=== PATIENT | female | born 1980 | race African-American/Black ===

== ENCOUNTER 2017-02-04 09:35 | Emergency (ER) | payer OTHER ==
[2017-02-04 09:39] VITALS: BP 138/92; PULSE 92; TEMP 98; BMI 22.4
--- NOTE | 2017-02-04 10:11 | PDOC ---
History of Present Illness - General History Source: Patient Exam Limitations: No Limitations - History of Present Illness Initial Comments: 02/04/17 11:12 36 year old female, with significant past medical history of Lupus, Kidney Cancer (s/p right partial nephrectomy), who presents to the emergency room complaining of 1 episode of dizziness like she was moving while standing in her room this morning prior to arrival to the ER. She notes that she felt nauseous and sweaty when the dizziness occurred but has since resolved. She states that the dizziness is exacerbated when bending over. She is also complaining of a few weeks of LUQ abdominal pain described as cramping. She notes that she had 1 loose bowel movement recently with mucous. Denies bloody or tarry stool. She notes that her bowel movements have been very painful recently. No associated vomiting, urinary sypmtoms, fever/chills. Denies headache, changes in vision. 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 Hirsch 02/04/17 11:18 <Richelle Mena - Last Filed: 02/04/17 11:19> <Toan Fletcher - Last Filed: 02/04/17 12:06> - General Chief Complaint: Lightheaded Stated Complaint: SOB Time Seen by Provider: 02/04/17 10:00 Past History <Richelle Mena - Last Filed: 02/04/17 11:19> - Past Medical History Anemia: No Asthma: No Cancer: Yes (KIDNEY R) Cardiac Disorders: No CVA: No COPD: No CHF: No Dementia: No Diabetes: No GI Disorders: No Disorders: No HTN: No Hypercholesterolemia: No Liver Disease: No Seizures: No Thyroid Disease: No Other medical history: LUPUS - Surgical History Abdominal Surgery: (FALLOPIAN TUBES REMOVED) Appendectomy: No Cardiac Surgery: No Cholecystectomy: No Lung Surgery: No Neurologic Surgery: No Orthopedic Surgery: No - Suicide/Smoking/Psychosocial Hx Smoking History: Never smoked Have you smoked in the past 12 months: Yes Number of Cigarettes Smoked Daily: 2 If you are a former smoker, when did you quit?: 3 MO AGO 'Breaking Loose' booklet given: 04/26/14 Hx Alcohol Use: Yes (SOCIAL) Drug/Substance Use Hx: No Substance Use Type: None Hx Substance Use Treatment: No <Toan Fletcher - Last Filed: 02/04/17 12:06> - Past Medical History Allergies/Adverse Reactions: Allergies Allergy/AdvReac Type Severity Reaction Status Date / Time oxycodone HCl [From Percocet] Allergy Itching Verified 02/04/17 09:39 Home Medications: Ambulatory Orders Hydroxychloroquine Sulfate [Plaquenil] 200 mg PO BID 10/03/15 Meloxicam 7.5 mg PO DAILY 10/03/15 Meclizine HCl [Antivert -] 25 mg PO TID PRN #21 tablet 02/04/17 Review of Systems - Review of Systems Able to Perform ROS?: Yes Comments:: 02/04/17 11:13 CONSTITUTIONAL: No reported: Fever, Chills, Diaphoresis, Generalized Weakness, Malaise, Loss of Appetite HEENT: No reported: Rhinorrhea, Nasal Congestion, Throat Pain, Throat Swelling, Difficulty Swallowing, Mouth Swelling, Ear Pain, Eye Pain, Visual Changes CARDIOVASCULAR: No reported: Chest Pain, Syncope, Palpitations, Irregular Heart Rate, Lightheadedness, Peripheral Edema RESPIRATORY: No reported: Cough, Shortness of Breath, SOB with Exertion, Orthopnea, Wheezing , Stridor, Hemoptysis GASTROINTESTINAL: Positive: LLQ abdominal pain, nausea, loose stool No reported: Abdominal Distension, Vomiting, Constipation, Melena, Hematochezia GENITOURINARY: No reported: Dysuria, Frequency, Urgency, Hesitancy, Flank Pain, Genital Pain MUSCULOSKELETAL: No reported: Myalgia, Arthralgia, Joint Swelling, Back pain, Neck Pain SKIN: No reported: Rash, Itching, Pallor HEMEATOLOGIC/IMMUNOLOGIC: No reported: Easy Bleeding, Easy Bruising, Lymphadenopathy, Frequent infections ENDOCRINE: No reported: Unexplained Weight Gain, Unexplained Weight Loss, Heat Intolerance , Cold Intolerance NEUROLOGIC: Positive: dizziness No reported: Headache, Focal Weakness, Paresthesias, Vertigo, Lightheadedness, Unsteady Gait, Seizure, Mental Status Changes, Incontinence PSYCHIATRIC: No reported: Anxiety, Depression 02/04/17 11:18 <Richelle Mena - Last Filed: 02/04/17 11:19> *Physical Exam - Vital Signs Last Vital Signs Temp Pulse Resp BP Pulse Ox 98.0 F 92 H 20 138/92 100 02/04/17 09:36 02/04/17 09:36 02/04/17 09:36 02/04/17 09:36 02/04/17 09:36 - Physical Exam Comments: 02/04/17 11:13 GENERAL: The patient is awake, alert, and fully oriented, Nontoxic - in no acute distress. HEAD: Normocephalic, atraumatic. EYES: extraocular movements intact, sclera anicteric, conjunctiva clear.No nystagmus ENT: Normal voice, dry mucous membranes. NECK: Normal range of motion, supple LUNGS: Breath sounds equal, clear to auscultation bilaterally. HEART: Regular rate and rhythm, without murmur, rub or gallop. ABDOMEN: Soft, nontender, n No guarding, no rebound.No CVA tenderness EXTREMITIES: Normal range of motion, no edema. No clubbing or cyanosis. No cords, erythema, or tenderness. NEUROLOGICAL: No facial assymetry, Normal speech, moving all 4 extremities spontaneously and symmetrically PSYCH: Normal mood, normal affect. SKIN: Warm, Dry, normal turgor 02/04/17 11:18 <Richelle Mena - Last Filed: 02/04/17 11:19> - Vital Signs Last Vital Signs Temp Pulse Resp BP Pulse Ox 98.0 F 92 H 20 138/92 100 02/04/17 09:36 02/04/17 09:36 02/04/17 09:36 02/04/17 09:36 02/04/17 09:36 <Toan Fletcher - Last Filed: 02/04/17 12:06> Heart Score/ECG Review - ECG Impressions Comment:: 02/04/17 11:17 Twelve-lead EKG was performed and reviewed by me. There is normal sinus rhythm with a normal rate. rate of [address] changes suggestive of acutee ischemia <Toan Fletcher - Last Filed: 02/04/17 12:06> ED Treatment Course - LABORATORY CBC & Chemistry Diagram: 02/04/17 10:14 02/04/17 10:14 - ADDITIONAL ORDERS Additional order review: Laboratory Results 02/04/17 10:40 Urine Color Colorless Urine Appearance Clear Urine pH 7.0 Ur Specific [place] 1.001 Urine Protein Negative Urine Glucose (UA) Negative Urine Ketones Negative Urine Blood Negative Urine Nitrite Negative Urine Bilirubin Negative Urine Urobilinogen Negative Urine HCG, Qual Negative 02/04/17 10:14 RBC 4.45 MCV 94.2 MCHC 32.4 RDW 13.4 MPV 8.9 Neutrophils % 68.5 Lymphocytes % 21.7 D Monocytes % 8.4 Eosinophils % 0.3 Basophils % 1.1 - Medications Given in the ED: ED Medications Discontinued Medications Generic Name Dose Route Start Last Admin Trade Name Freq PRN Reason Stop Dose Admin Sodium Chloride 1,000 mls @ 1,000 mls/hr 02/04/17 10:12 02/04/17 10:32 Normal Saline - IV 02/04/17 11:11 1,000 mls/hr .Q1H ONE Administration Meclizine HCl 25 mg 02/04/17 10:22 02/04/17 10:48 Antivert - PO 02/04/17 10:23 25 mg ONCE ONE Administration Ondansetron HCl 4 mg 02/04/17 10:12 02/04/17 10:48 Zofran Injection IVPB 02/04/17 10:13 4 mg ONCE ONE Administration <Richelle Mena - Last Filed: 02/04/17 11:19> - LABORATORY CBC & Chemistry Diagram: 02/04/17 10:14 02/04/17 10:14 <Toan Fletcher - Last Filed: 02/04/17 12:06> Medical Decision Making - Medical Decision Making 02/04/17 10:30 36y F hx of renal ca s/p partial nephrectomy, lupus, presents with complaint of episode of lightheadedness. Pt states she was in her room thsi morning when she suddenly felt lightheaded/dizzy, she then felt nauseus, sob, sweaty. pt states when she bends over the sypmtoms return. She notes she is feeling better currently, still feels alittle 'airy in the head' - no asociated neuro complaints including vision changes, speech changes. pt also endorses a few weeks of intermittent crampy LUQ pain w/o fever/chills, with mild nausea, vag or urinary complaints. on exam the pt is in no distress normal neuro exam abd soft nontender suspect vertigo vs. ightheaded/orthostasis will give fluids zofran for nausea ekg to r/o cardiac cause will reassess A portion of this note was documented by scribe services under my direction. I have reviewed the details of the note, within reason, and agree with the documentation with the following case summary and management plan written by me 02/04/17 11:46 pts dizziness improved pts labs reviewed will give rx for meclizine will have pt fu with pmd in 3-4 days for reevaluation pt lipase borderline possible resolving pancreatitis as she said her pain has been going on for several weeks will have the pt eat lightly and advance her diet will have her fu with her PMD to have this reassesed return precautions for worsening pain/vomiting. I discussed the physical exam findings, ancillary test results and final diagnoses with the patient. I answered all of the patient's questions. The patient was satisfied with the care received and felt comfortable with the discharge plan and treatment plan. The patient will call their primary care physician within 24 hours to arrange follow-up and will return to the Emergency Department with any new, persistent or worsening symptoms. <Toan Fletcher - Last Filed: 02/04/17 12:06> *DC/Admit/Observation/Transfer - Attestations Scribe Attestion: 02/04/17 11:13 Documentation prepared by GERMAIN Calderon, acting as manager medical for Toan Fletcher MD. <Richelle Mena - Last Filed: 02/04/17 11:19> - Discharge Dispostion Admit: No <Toan Fletcher - Last Filed: 02/04/17 12:06> Diagnosis at time of Disposition: Vertigo - Discharge Dispostion Disposition: HOME Condition at time of disposition: Improved - Prescriptions Prescriptions: Meclizine HCl [Antivert -] 25 mg PO TID PRN #21 tablet PRN Reason: Vertigo - Referrals Referrals: [facility] [Provider Group] - Patient Instructions Printed Discharge Instructions: DI for Vertigo Additional Instructions: Return to the emergency department immediately with ANY new, persistent or worsening symptoms including any speech changes, vision changes, fever/chills, neck pain other concerns. Take meclizine for your dizziness. If you have mild headache, you may take tylenol or motrin Your lipase was slightly elevated - please follow up with [facility] doctor to have this reassessed. Eat lightly for the next 2-3 days. If your pain gets worse, or you are vomiting and arent able to keep anything down, return to the emergecny department for evaluation You MUST call and follow up with your doctor in 3-4 days for further evaluation of your symptoms. Results were discussed with you. Please make sure your doctor reviews the results of your emergency evaluation. Print Language: YI
[2017-02-04] MEDS ORDERED: SODIUM CHLORIDE 1,000 ML IV ONE (10:12)
[2017-02-04] MEDS ORDERED: ONDANSETRON 4 MG/2 ML VIAL IVPB ONE (10:12)
[2017-02-04] MEDS ORDERED: MECLIZINE HCL 25 MG TABLET (FP) PO ONE (10:22)
[2017-02-04] MEDS ORDERED: ONDANSETRON 4 MG/2 ML VIAL ONE (10:36)
[2017-02-04] MEDS ORDERED: MECLIZINE HCL 25 MG TABLET (FP) ONE (10:36)
[2017-02-04 10:50] LABS: BASOPHIL 1.1 % (0-2.0); EOSINOPHIL 0.3 % (0-4.5); MCH 30.5 pg (25.7-33.7); MCHC 32.4 g/dl (32.0-36.0); MEAN CELL VOLUME 94.2 fl (80-96); MEAN PLT VOLUME 8.9 fl (7.5-11.1); NEUTROPHILS 68.5 % (42.8-82.8); PLATELET COUNT 218 K/MM3 (134-434); RDW 13.4 % (11.6-15.6); WHITE BLOOD COUNT 5.8 K/mm3 (4.0-10.0)
[2017-02-04 11:01] LABS: URINE APPEARANCE CLEAR; URINE BILIRUBIN NEGATIVE (NEGATIVE); URINE BLOOD NEGATIVE (NEGATIVE); URINE COLOR COLORLESS; URINE GLUCOSE (UA) NEGATIVE (NEGATIVE); URINE KETONE NEGATIVE (NEGATIVE); URINE NITRITE NEGATIVE (NEGATIVE); URINE PROTEIN NEGATIVE (NEGATIVE); URINE UROBILINOGEN NEGATIVE mg/dL (0.2-1.0)
[2017-02-04 11:31] LABS: ALBUMIN 4.5 g/dl (3.4-5.0); ANION GAP 7 (8-16); BILIRUBIN,TOTAL 1.1 mg/dL (0.2-1.0); CALCIUM 9.2 mg/dL (8.5-10.1); CO2 25 mmol/L (21-32); CREATININE 0.9 mg/dL (0.55-1.02); GLUCOSE,RANDOM 74 mg/dL (74-106); SGOT/AST 13 U/L (15-37); SGPT/ALT 28 U/L (12-78); TOT PROT 7.7 g/dl (6.4-8.2)
[2017-02-04 11:32] LABS: ALK PHOS 48 U/L (45-117)
--- NOTE | 2017-02-04 13:18 | EKG ---
Test Reason : Blood Pressure : / mmHG Vent. Rate : 071 BPM Atrial Rate : 071 BPM P-R Int : 170 ms QRS Dur : 078 ms QT Int : 412 ms P-R-T Axes : 065 052 028 degrees QTc Int : 447 ms NORMAL SINUS RHYTHM WITH SINUS ARRHYTHMIA POSSIBLE LEFT ATRIAL ENLARGEMENT BORDERLINE ECG WHEN COMPARED WITH ECG OF 03-OCT-2015 20:58, NO SIGNIFICANT CHANGE WAS FOUND Confirmed by SHERRILL ISIDRO, CHIARA ([id number]) on 02/04/2017 1:18:36 PM Referred By: Confirmed By:CHIARA MCCARTNEY MD
[2017-02-04 17:23] LABS: URINE LEUK ESTERASE Negative (NEGATIVE)
== END 2017-02-04 12:12 | disposition home or self-care (01) ==
LOC: JER 09:35
PROC: 3E033GC Introduction of Other Therapeutic Substance into Peripheral Vein, Percutaneous Approach (ICD-10-PCS; principal; 2017-02-04)
PROC: 3E0337Z Introduction of Electrolytic and Water Balance Substance into Peripheral Vein, Percutaneous Approach (ICD-10-PCS; 2017-02-04)
DX: R42 Dizziness and giddiness (principal)
CPT/HCPCS: 36415; 80053; 81003; 83605; 83690; 84703; 85025; 93005; 93010; 96361; 96374; 99283-25

== ENCOUNTER 2017-08-10 08:32 | Inpatient (IN) | payer OTHER ==
[2017-08-10] MEDS ORDERED: ACETAMINOPHEN 1000 MG/100 ML VIAL (NON FORMULARY) IVPB ONE ×2 (09:44→18:37)
[2017-08-10] MEDS ORDERED: ACETAMINOPHEN INJECTION 100 ML IVPB ONE (09:57)
[2017-08-10] MEDS: SODIUM CHLORIDE 1,000 ML IV SCH ×2 (10:07→19:37)
--- NOTE | 2017-08-10 10:22 | PDOC ---
History of Present Illness - General History Source: Patient Exam Limitations: No Limitations - History of Present Illness Initial Comments: 08/10/17 10:27 The patient is a 37 year old female, with a significant past medical history of Lupus, Kidney Cancer (s/p right partial nephrectomy) who presents to the emergency reports with worsening upper body in both of her legs associated with sharp lower back pain. Patients symptoms progressed to twitching in her neck and elbows. Patient also notes chest pressure, that she describes as heaviness. Patient denies any changes in medications. Patient denies palpitations, diaphoresis, headache or dizziness. Patient denies fever, chills, abdominal pain, nausea, vomit, diarrhea or constipation. Patient denies dysuria, frequency, urgency or hematuria. Patient denies sick contacts, recent illnesses or recent travel. Allergies: oxycodone HCl Past surgical history: tubal ligation, right partial nephrectomy Social history: denied smoking, recreational drug use. social etoh use. PCP: Dr. Velasquez Rhematology: [place] <Larissa Salcido - Last Filed: 08/10/17 12:40> - General History Source: Patient Exam Limitations: No Limitations <Daniel Velasco - Last Filed: 08/10/17 13:14> - General Chief Complaint: Tremors Stated Complaint: TWITCHING Time Seen by Provider: 08/10/17 09:12 Past History <Larissa Salcido - Last Filed: 08/10/17 12:40> - Past Medical History Anemia: No Asthma: No Cancer: Yes (KIDNEY R) Cardiac Disorders: No CVA: No COPD: No CHF: No Dementia: No Diabetes: No GI Disorders: No Disorders: No HTN: No Hypercholesterolemia: No Liver Disease: No Seizures: No Thyroid Disease: No Other medical history: LUPUS - Surgical History Abdominal Surgery: Yes (FALLOPIAN TUBES REMOVED) Appendectomy: No Cardiac Surgery: No Cholecystectomy: No GI Surgery: Yes (PARTIAL RIGHT NEPHRECTOMY) Lung Surgery: No Neurologic Surgery: No Orthopedic Surgery: No - Suicide/Smoking/Psychosocial Hx Smoking History: Former smoker Have you smoked in the past 12 months: No Number of Cigarettes Smoked Daily: 2 If you are a former smoker, when did you quit?: 3 MO AGO Information on smoking cessation initiated: No 'Breaking Loose' booklet given: 04/26/14 Hx Alcohol Use: Yes (SOCIAL) Drug/Substance Use Hx: No Substance Use Type: None Hx Substance Use Treatment: No <Daniel Velasco - Last Filed: 08/10/17 13:14> - Past Medical History Allergies/Adverse Reactions: Allergies Allergy/AdvReac Type Severity Reaction Status Date / Time oxycodone HCl [From Percocet] Allergy Itching Verified 08/10/17 08:40 Home Medications: Ambulatory Orders Hydroxychloroquine Sulfate [Plaquenil] 200 mg PO BID 10/03/15 Review of Systems - Review of Systems Able to Perform ROS?: Yes Comments:: 08/10/17 10:27 GENERAL/CONSTITUTIONAL: No fever or chills. No weakness. HEAD, EYES, EARS, NOSE AND THROAT: No change in vision. No ear pain or discharge. No sore throat. CARDIOVASCULAR: No chest pain or shortness of breath. RESPIRATORY: No cough, wheezing, or hemoptysis. GASTROINTESTINAL: No nausea, vomiting, diarrhea or constipation. GENITOURINARY: No dysuria, frequency, or change in urination. MUSCULOSKELETAL: No joint or muscle swelling or pain. No neck or back pain. SKIN: No rash NEUROLOGIC:+ twitching of elbows, necks. No headache, vertigo, loss of consciousness, or change in strength/sensation. ENDOCRINE: No increased thirst. No abnormal weight change. HEMATOLOGIC/LYMPHATIC: No anemia, easy bleeding, or history of blood clots. ALLERGIC/IMMUNOLOGIC: No hives or skin allergy. <Larissa Salcido - Last Filed: 08/10/17 12:40> *Physical Exam - Vital Signs Last Vital Signs Temp Pulse Resp BP Pulse Ox 99 F 97 H 17 144/102 100 08/10/17 08:40 08/10/17 08:40 08/10/17 08:40 08/10/17 08:40 08/10/17 08:40 - Physical Exam Comments: 08/10/17 10:27 GENERAL: Awake, alert, and fully oriented, in no acute distress HEAD: No signs of trauma EYES: PERRLA, EOMI, sclera anicteric, conjunctiva clear ENT: Auricles normal inspection, hearing grossly normal, nares patent, oropharynx clear without exudates. Moist mucosa NECK: Normal ROM, supple, no lymphadenopathy, JVD, or masses LUNGS: Breath sounds equal, clear to auscultation bilaterally. No wheezes, and no crackles HEART: Regular rate and rhythm, normal S1 and S2, no murmurs, rubs or gallops ABDOMEN: Soft, nontender, normoactive bowel sounds. No guarding, no rebound. No masses EXTREMITIES: Normal range of motion, no edema. No clubbing or cyanosis. No cords, erythema, or tenderness. +Tenderness to palpation to T10 with no step offs. NEUROLOGICAL: Cranial nerves II through XII intact. Normal speech, normal gait. +Frequent neck twitching throughout exam. + Subjective decreased sensation along the peripheral bilateral feet and bilateral hands. +Full strength 5/5 in upper and lower extremities. SKIN: Warm, Dry, normal turgor, no rashes or lesions noted. <Larissa Salcido - Last Filed: 08/10/17 12:40> - Vital Signs Last Vital Signs Temp Pulse Resp BP Pulse Ox 99 F 97 H 17 144/102 100 08/10/17 08:40 08/10/17 08:40 08/10/17 08:40 08/10/17 08:40 08/10/17 08:40 <Daniel Velasco - Last Filed: 08/10/17 13:14> Moderate Sedation - Procedure Monitoring Vital Signs: Vital Signs Temp Pulse Resp BP Pulse Ox 99 F 97 H 17 144/102 100 08/10/17 08:40 08/10/17 08:40 08/10/17 08:40 08/10/17 08:40 08/10/17 08:40 <Larissa Salcido - Last Filed: 08/10/17 12:40> - Procedure Monitoring Vital Signs: Vital Signs Temp Pulse Resp BP Pulse Ox 99 F 97 H 17 144/102 100 08/10/17 08:40 08/10/17 08:40 08/10/17 08:40 08/10/17 08:40 08/10/17 08:40 <Daniel Velasco - Last Filed: 08/10/17 13:14> Heart Score/ECG Review #1 ECG reviewed & interpreted by me at: 10:30 08/10/17 10:30 NSR 80, no std/augusto, TWI III, normal axis, normal intervals, QTC 477 msec <Daniel Velasco - Last Filed: 08/10/17 13:14> ED Treatment Course - LABORATORY CBC & Chemistry Diagram: 08/10/17 09:50 08/10/17 09:50 - Medications Given in the ED: ED Medications Discontinued Medications Generic Name Dose Route Start Last Admin Trade Name Freq PRN Reason Stop Dose Admin Acetaminophen 1,000 mg 08/10/17 09:44 08/10/17 10:07 Ofirmev Injection - IVPB 08/10/17 09:45 1,000 mg ONCE ONE Administration Lorazepam 1 mg 08/10/17 09:44 08/10/17 10:00 Ativan Injection - IVPUSH 08/10/17 09:45 1 mg ONCE ONE Administration <Larissa Salcido - Last Filed: 08/10/17 12:40> - LABORATORY CBC & Chemistry Diagram: 08/10/17 09:50 08/10/17 09:50 - RADIOLOGY Radiology Studies Ordered: Category Date Time Status HEAD CT WITHOUT CONTRAST [CT] Stat CT Scan 08/10/17 09:[address] W/O CONTRAST [CT] Stat CT Scan 08/10/17 09:[address] W/O CONTRAST [CT] Stat CT Scan 08/10/17 09:44 Ordered CHEST PA & LAT [RAD] Stat Radiology 08/10/17 09:44 Ordered - Medications Given in the ED: ED Medications Discontinued Medications Generic Name Dose Route Start Last Admin Trade Name Freq PRN Reason Stop Dose Admin Acetaminophen 1,000 mg 08/10/17 09:44 08/10/17 10:07 Ofirmev Injection - IVPB 08/10/17 09:45 1,000 mg ONCE ONE Administration Lorazepam 1 mg 08/10/17 09:44 08/10/17 10:00 Ativan Injection - IVPUSH 08/10/17 09:45 1 mg ONCE ONE Administration <Daniel Velasco - Last Filed: 08/10/17 13:14> Medical Decision Making - Medical Decision Making 08/10/17 12:40 Dr. Capps paged via cell phone. Patient's case discussed. <Larissa Salcido - Last Filed: 08/10/17 12:40> - Medical Decision Making 08/10/17 10:10 A portion of this note was documented by scribe services under my direction. I have reviewed the details of the note, within reason, and agree with the documentation with the following case summary and management plan written by me. Patient treated in the ED. Nursing notes are reviewed and incorporated into the medical decision-making. Vital signs reviewed. Peripheral IV access obtained by the nurse, laboratory studies are drawn and sent, reviewed and interpreted by myself. Vital Signs Temp Pulse Resp BP Pulse Ox 99 F 97 H 17 144/102 100 08/10/17 08:40 08/10/17 08:40 08/10/17 08:40 08/10/17 08:40 08/10/17 08:40 37-year-old female with past medical history of right-sided renal cancer status post partial right nephrectomy, lupus presents with twitching for 2 days. Patient reports that she felt paresthesias along the bilateral hands and lower extremity tingling that had progressed recently into neck twitching. Today the symptoms worsen. Patient also reported that she has had some nonexertional chest discomfort but no shortness of breath. Denies fevers, chills, cough, vomiting, diarrhea, dysuria. The twitching may potentially be secondary to metabolic disarray such as hypocalcemia, acute renal insufficiency, neurologic (though not in an obvious neurologic pattern), MSK. The patient is complaining about thoracic and lumbar pain that is not right. Could this be malignancy? We'll obtain a CAT scan of the thoracic and lumbar spine. 08/10/17 13:12 CBC, BMP 08/10/17 09:50 08/10/17 09:50 CMP Sodium 140 mmol/L (136-145) 08/10/17 09:50 Potassium 3.8 mmol/L (3.5-5.1) 08/10/17 09:50 Chloride 108 mmol/L (98-107) H 08/10/17 09:50 Carbon Dioxide 24 mmol/L (21-32) 08/10/17 09:50 Anion Gap 8 (8-16) 08/10/17 09:50 BUN 11 mg/dL (7-18) 08/10/17 09:50 Creatinine 1.0 mg/dL (0.55-1.02) 08/10/17 09:50 Creat Clearance w eGFR > 60 (>60) 08/10/17 09:50 Random Glucose 83 mg/dL (74-106) 08/10/17 09:50 Calcium 9.2 mg/dL (8.5-10.1) 08/10/17 09:50 Phosphorus 3.7 mg/dL (2.5-4.9) 08/10/17 09:50 Magnesium 2.2 mg/dL (1.8-2.4) 08/10/17 09:50 Total Bilirubin 0.9 mg/dL (0.2-1.0) 08/10/17 09:50 AST 18 U/L (15-37) 08/10/17 09:50 ALT 28 U/L (12-78) 08/10/17 09:50 Alkaline Phosphatase 49 U/L (45-117) 08/10/17 09:50 Creatine Kinase 415 IU/L (26-192) H 08/10/17 09:50 Creatine Kinase Index 0.7 % (0.0-5.0) 08/10/17 09:50 CK-MB (CK-2) 3.153 ng/mL (0.5-3.6) 08/10/17 09:50 Troponin I < 0.02 ng/ml (0.00-0.05) 08/10/17 09:50 Total Protein 8.0 g/dl (6.4-8.2) 08/10/17 09:50 Albumin 4.6 g/dl (3.4-5.0) 08/10/17 09:50 Urine Test Results Urine Color Straw 08/10/17 09:36 Urine Appearance Clear 08/10/17 09:36 Urine pH 7.0 (5.0-8.0) 08/10/17 09:36 Ur Specific [place] 1.009 (1.001-1.035) 08/10/17 09:36 Urine Protein Negative (NEGATIVE) 08/10/17 09:36 Urine Glucose (UA) Negative (NEGATIVE) 08/10/17 09:36 Urine Ketones Trace (NEGATIVE) H 08/10/17 09:36 Urine Blood Negative (NEGATIVE) 08/10/17 09:36 Urine Nitrite Negative (NEGATIVE) 08/10/17 09:36 Urine Bilirubin Negative (<2.0 mg/dL) 08/10/17 09:36 Ur Leukocyte Esterase Negative (NEGATIVE) 08/10/17 09:[address], spinal CT unremarkable. Case discussed with neurologist Dr. Capps. Could this be related to lupus? Or demyleinating disorders? Dr. Capps agrees to consult and agrees with plan for MRI. Case discussed with minervahony who accepts admission to med/surg obs for further workup. Case discussed in detail with admitting physician including history, physical exam and ancillary studies. Admitting physician has assumed care for the patient, will follow all pending diagnostics and will complete the evaluation and treatment. <Daniel Velasco - Last Filed: 08/10/17 13:14> *DC/Admit/Observation/Transfer - Attestations Scribe Attestion: 08/10/17 10:27 Documentation prepared by Larissa Salcido, acting as certified medical records coder for Daniel Velasco MD <Larissa Salcido - Last Filed: 08/10/17 12:40> - Discharge Dispostion Decision to Admit order: Yes <Daniel Velasco - Last Filed: 08/10/17 13:14> Diagnosis at time of Disposition: Tremors of nervous system - Discharge Dispostion Condition at time of disposition: Stable - Referrals Referrals: Ravi Ellison MD [Primary Care Provider] - - Patient Instructions - Post Discharge Activity
[2017-08-10 10:42] LABS: HCG,QUALITATIVE URINE NEGATIVE
[2017-08-10 10:42] LABS: BASO % 0.6 % (0-2.0); EOS % 0.1 % (0-4.5); HEMATOCRIT 42.1 % (32.4-45.2); HEMOGLOBIN 13.9 GM/dL (10.7-15.3); LYMPH % 15.8 % (8-40); MCH 30.9 pg (25.7-33.7); MCHC 33.1 g/dl (32.0-36.0); MEAN CELL VOLUME 93.2 fl (80-96); MEAN PLT VOLUME 9.3 fl (7.5-11.1); MONO % 8.4 % (3.8-10.2); NEUT % 75.1 % (42.8-82.8); PLATELET COUNT 207 K/MM3 (134-434); RBC 4.51 M/mm3 (3.60-5.2); WHITE BLOOD COUNT 6.7 K/mm3 (4.0-10.0)
[2017-08-10 11:01] LABS: URINE APPEARANCE CLEAR; URINE BILIRUBIN NEGATIVE (<2.0 mg/dL); URINE COLOR STRAW; URINE GLUCOSE (UA) NEGATIVE (NEGATIVE); URINE KETONE TRACE (NEGATIVE); URINE LEUK ESTERASE NEGATIVE (NEGATIVE); URINE NITRITE NEGATIVE (NEGATIVE); URINE PROTEIN NEGATIVE (NEGATIVE); URINE UROBILINOGEN NEGATIVE mg/dL (0.2-1.0)
[2017-08-10 11:02] LABS: INR 1.03 (0.82-1.09); PROTHROMBIN TIME (PATIENT) 11.6 SEC (9.7-13.0)
[2017-08-10 11:05] LABS: ACTIVATED PTT 31.4 SECONDS (26.9-34.4)
[2017-08-10 11:09] LABS: ALBUMIN 4.6 g/dl (3.4-5.0); ANION GAP 8 (8-16); BILIRUBIN,TOTAL 0.9 mg/dL (0.2-1.0); BLOOD UREA NITROGEN 11 mg/dL (7-18); CALCIUM 9.2 mg/dL (8.5-10.1); CHLORIDE 108 mmol/L (98-107); CO2 24 mmol/L (21-32); GLUCOSE,RANDOM 83 mg/dL (74-106); PHOSPHOROUS 3.7 mg/dL (2.5-4.9); POTASSIUM 3.8 mmol/L (3.5-5.1); SGOT/AST 18 U/L (15-37); SGPT/ALT 28 U/L (12-78); SODIUM 140 mmol/L (136-145)
[2017-08-10 11:12] LABS: ALK PHOS 49 U/L (45-117); MAGNESIUM 2.2 mg/dL (1.8-2.4)
--- NOTE | 2017-08-10 13:59 | CON.NEURO ---
Consult - Past Medical History ...LMP: 03/03/15 Rheumatology: Yes: Other (Discoid Lupus) - Alcohol/Substance Use Hx Alcohol Use: Yes (SOCIAL) - Smoking History Smoking history: Former smoker Have you smoked in the past 12 months: No Aproximately how many cigarettes per day: 2 If you are a former smoker, when did you quit?: 3 MO AGO Home Medications - Allergies Allergies/Adverse Reactions: Allergies Allergy/AdvReac Type Severity Reaction Status Date / Time oxycodone HCl [From Percocet] Allergy Itching Verified 08/10/17 08:40 - Home Medications Home Medications: Ambulatory Orders Hydroxychloroquine Sulfate [Plaquenil] 200 mg PO BID 10/03/15 Physical Exam-Neuro Vital Signs: Vital Signs Temperature 99 F 08/10/17 08:40 Pulse Rate 97 H 08/10/17 08:40 Respiratory Rate 17 08/10/17 08:40 Blood Pressure 144/102 08/10/17 08:40 O2 Sat by Pulse Oximetry (%) 100 08/10/17 08:40 Labs: CBC, BMP 08/10/17 09:50 08/10/17 09:50 INR, PTT INR 1.03 (0.82-1.09) 08/10/17 09:50 Assessment/Plan CC Abnormal Jerky in upper extremity HPI 37 year old female history of Lupus ( 2003), she has right partial nephrectomy . 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 She has been ahving abnormal jerky motion of neck, left shoulder area. THere is no LOC, no tongue bite or incontinence. She was given benadryl and ativan, That helped her to calm down. Her initial lab work up and ct head is normal. Patient denies any stress, She denies any alcohol abuse. She has not been given any new medication recently. She continue to have symptoms after benadryl was given. She denies any difficulty talking or, weakness or LOC. She also do complain of both feet numbness upto knee and lower part of thigh. She denies any history of DM or alcohol abuse. Allergies: oxycodone HCl Past surgical history: tubal ligation, right partial nephrectomy Social history: denied smoking, recreational drug use. social etoh use. Medication Plaquenil Neurological Examination Alert able to follow command, There is occasional neck movement ( circumduction) and atpyical left shoulder movmeent were seen no motor weakness was identified CN , eomi, pupil reactive, no face asymmetry sensation - diminished to pin prick below lower part of thigh reflex are grade [address] head is normal Assessment- 1. abnormal head and shoulder movement ? seizure vs dystonic reaction vs conversion reaction. I would do mri of brain with contrast and eeg, If symptom persists after benadryl , may try low dose of klonipin. 2. lower extremity loss of sensation ? suspect peripheral neuropathy - suggest to do b12,folate tsh, serum protein electrophoresis, Hemoglobin A1c , and emg ( may be done outpatient ), unlikley to be GBS as reflex are present though diminished Thanking you so much Rayshawn Capps MD
--- NOTE | 2017-08-10 13:59 | PN ---
Teaching Attending Note Name of Resident: Becky Osei ATTENDING PHYSICIAN STATEMENT I saw and evaluated the patient. I reviewed the resident's note and discussed the case with the resident. I agree with the resident's findings and plan as documented. SUBJECTIVE: This is a 37 year old woman with a history of SLE, renal cell carcinoma, partial right nephrectomy who comes to the ED complaining of twitching of her body x 2 days. Symptoms started suddenly with her chin then progressed to her neck and upper and lower extremities. She reports a feeling of water running down her back and episodes of chest pressure. She gets relief with Ativan and sleep. She takes Nytol (Benadryl) occasionally for insomnia. OBJECTIVE: Vital Signs Period Temp Pulse Resp BP Sys/Cardozo Pulse Ox Last 24 Hr 97.5 F-99 F 91-97 17-20 115-144/71-102 100-100 HEART: S1S2, RRR LUNGS: Clear ABDOMEN: Soft, non-tender, non-distended, normal BS EXTREMITIES: No edema NEUROLOGICAL: Alert, occasional jerking movements of her head/neck and left shoulder, strength 5/5, sensation grossly intact Laboratory Results - last 24 hr 08/10/17 08/10/17 08/10/17 09:36 09:50 09:50 WBC 6.7 RBC 4.51 Hgb 13.9 Hct 42.1 MCV 93.2 MCH 30.9 MCHC 33.1 RDW 13.0 Plt Count 207 MPV 9.3 Neutrophils % 75.1 Lymphocytes % 15.8 D Monocytes % 8.4 Eosinophils % 0.1 Basophils % 0.6 PT with INR 11.60 INR 1.03 PTT (Actin FS) 31.4 Sodium Potassium Chloride Carbon Dioxide Anion Gap BUN Creatinine Creat Clearance w eGFR Random Glucose Calcium Phosphorus Magnesium Total Bilirubin AST ALT Alkaline Phosphatase Creatine Kinase Creatine Kinase Index CK-MB (CK-2) Troponin I Total Protein Albumin Urine Color Straw Urine Appearance Clear Urine pH 7.0 Ur Specific Rowdy 1.009 Urine Protein Negative Urine Glucose (UA) Negative Urine Ketones Trace H Urine Blood Negative Urine Nitrite Negative Urine Bilirubin Negative Urine Urobilinogen Negative Ur Leukocyte Esterase Negative Urine HCG, Qual Negative 08/10/17 09:50 WBC RBC Hgb Hct MCV MCH MCHC RDW Plt Count MPV Neutrophils % Lymphocytes % Monocytes % Eosinophils % Basophils % PT with INR INR PTT (Actin FS) Sodium 140 Potassium 3.8 Chloride 108 H Carbon Dioxide 24 Anion Gap 8 BUN 11 Creatinine 1.0 Creat Clearance w eGFR > 60 Random Glucose 83 Calcium 9.2 Phosphorus 3.7 Magnesium 2.2 Total Bilirubin 0.9 AST 18 ALT 28 Alkaline Phosphatase 49 Creatine Kinase 415 H Creatine Kinase Index 0.7 CK-MB (CK-2) 3.153 Troponin I < 0.02 Total Protein 8.0 Albumin 4.6 Urine Color Urine Appearance Urine pH Ur Specific Rowdy Urine Protein Urine Glucose (UA) Urine Ketones Urine Blood Urine Nitrite Urine Bilirubin Urine Urobilinogen Ur Leukocyte Esterase Urine HCG, Qual Home Medications Medication Instructions Recorded Hydroxychloroquine Sulfate 200 mg PO BID 10/03/15 [Plaquenil] ASSESSMENT AND PLAN: This is a 37 year old woman with a history of SLE, renal cell carcinoma, partial right nephrectomy who presented to the ED with twitching of her body x 2 days. 1. Twitching/jerking movements of head, neck, left shoulder - Neurology input appreciated - seizure vs dystonic reaction vs conversion - Plan for MRI, EEG, Benadryl 2. Possible peripheral neuropathy - As per neurology, she has diminished pin prick sensation below lower thigh - Plan for B12 and folate levels, TSH, HbA1c, SPEP, outpatient EMG 3. SLE - Continue Plaquenil 4. History of renal cell carcinoma, partial right nephrectomy
--- NOTE | 2017-08-10 14:05 | HP ---
Admitting History and Physical - Primary Care Physician PCP: Ravi Ellison - Admission Chief Complaint: twitching of muscles History of Present Illness: 37F PMHx discoid lupus (on plaquenil for past 10 years), renal cancer s/p Right partial nephrectomy who presents to the [facility] with a chief complaint of muscle twitch of the neck, arms, legs as well as paresthesias of all 4 extremities for the last 2 days. spasms started with her chin and have progressed to her neck and extremities. The twitching started randomly and lasts for a few seconds. She denies nausea vomiting fever chills chest pain or shortness of breath. She denies urinary or GI symptoms. She does endorse low back pain. She denies loss of bowel or bladder function. During the interview the patients neck seemed twitching on purpose. When speaking to the patient and interviewing her the twitching seemed to stop while the patient was distracted. 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 No: Ascites, Cancer, Constipation, Crohn's Disease, Diverticulitis, Diverticulosis, Esophageal Varices, Gastritis, GERD, GI Bleed, Hemorrhoids, Hiatal Hernia, Inflamatory Bowel Disease, Irritable Bowel Disease, Pancreatitis, Peptic Ulcer Disease, Ulcerative Colitis Hepatobiliary: No: Cirrhosis, Cholelithiasis, Cholecystitis, Choledocholithiasis , Hepatitis A, Hepatitis B, Hepatitis C, Other Renal/: Yes: Other (Right renal Ca s/p nephrectomy) ...LMP: 03/03/15 ...: No (Upreg negative) Heme/Onc: No: Anemia, B12 Deficiency, Bleeding Disorder, Cancer, Current Chemotherapy, Current Radiation Therapy, Hemochromatosis, Hypercoaguable State, Myeloproliferative Synd, Sickle Cell Disease, Sickle Cell Trait, Thrombocytopenia, Other Musculoskeletal: Yes: Chronic low back pain Rheumatology: Yes: Lupus (discoid), Other (Discoid Lupus) Dermatology: No: Basal Cell, Cellulitis, Eczema, Melanoma, Psoriasis, Squamous Cell, Other - Past Surgical History Past Surgical History: Yes: Nephrectomy (right) - Smoking History Smoking history: Former smoker Have you smoked in the past 12 months: No Aproximately how many cigarettes per day: 2 - Alcohol/Substance Use Hx Alcohol Use: Yes (SOCIAL) Home Medications - Allergies Allergies/Adverse Reactions: Allergies Allergy/AdvReac Type Severity Reaction Status Date / Time oxycodone HCl [From Percocet] Allergy Itching Verified 08/10/17 08:40 - Home Medications Home Medications: Ambulatory Orders Hydroxychloroquine Sulfate [Plaquenil] 200 mg PO BID 10/03/15 Review of Systems - Review of Systems Constitutional: denies: No Symptoms, Chills, Diaphoresis, Fever, Lethargy, Loss of Appetite, Malaise, Night Sweats, Unintentional Wgt. Loss, Weakness, Other Eyes: denies: No Symptoms, Blind Spots, Blurred Vision, Double Vision, Eye Pain , Floaters, Photophobia, Recent Change in Vision, Other HENT: reports: Other (neck jerking). denies: No Symptoms, Difficult Swallowing , Ear Discharge, Ear Pain, Epistaxis, Gingival Bleeding, Hearing Loss, Mouth Swelling, Nasal Congestion, Ocular Prosthesis, Throat Pain, Toothache, Ringing in Ears Neck: denies: No Symptoms, Decreased ROM, Lumps, Pain on Movement, Stiffness, Swollen Glands, Tenderness, Other Cardiovascular: denies: No Symptoms, Chest Pain, Edema, Palpitations, Shortness of Breath, Other Respiratory: denies: No Symptoms, Cough, Exercise Intolerance, Hemoptysis, Orthopnea, PND, Snoring, SOB, SOB on Exertion, Wheezing, Other Gastrointestinal: denies: No Symptoms, Abdominal Pain, Bloating, Constipation, Diarrhea, Dysphagia, Indigestion, Melena, Nausea, Rectal Bleeding, Vomiting, Vomiting Blood, Other Genitourinary: denies: No Symptoms, Burning, Discharge, Dysuria, Flank Pain, Frequency, Hematuria, Incontinence, Lesions, Menses, Pain, Testicular Mass, Testicular Pain, Testicular Swelling, Urgency, Vaginal Bleeding, Other Musculoskeletal: reports: Back Pain, Joint Pain, Muscle Weakness, Other ( twitching jerking numbess and tingling of lower and upper extremities) Neurological: reports: Numbness, Parasthesia, Tremors, Weakness, Other ( twitching and jerking of neck upper and lower extremities). denies: Change in LOC, Change in Speech, Confusion, Dizziness, Headache, Incoordination, Pre- Existing Deficit, Seizure, Syncope, Unsteady Gait Psychiatric: denies: No Symptoms, Altered Sleep Pattern, Anxiety, Depression, Hallucinations, Panic, Paranoia, Suicidal, Other Physical Examination Vital Signs: Vital Signs Temperature 97.5 F L 08/10/17 13:56 Pulse Rate 91 H 08/10/17 13:56 Respiratory Rate 20 08/10/17 13:56 Blood Pressure 115/71 08/10/17 13:56 O2 Sat by Pulse Oximetry (%) 100 08/10/17 13:56 Constitutional: Yes: Well Nourished, Other (jerking of neck during interview. flailing of upper extremities) Eyes: Yes: EOM Intact, PERRL HENT: Yes: Atraumatic Neck: Yes: Supple, Trachea Midline (neck tweitching during exam. Muscles were plapated during the exam and it did not seem the contractions were involuntary.) , Other. No: Tenderness Cardiovascular: Yes: Regular Rate and Rhythm, S1, S2 Respiratory: Yes: Regular, CTA Bilaterally Gastrointestinal: Yes: Soft. No: Tenderness Edema: No Neurological: Yes: Alert, Oriented, Cran Nerves II-XII Intact, Other (twitching of neck and arms on exam which stop when distracted. muscle strength 4/5 globally expcept LLE which was 3/5 knee jerk 2+ bilaterally brachioradialis jerk 2+ bilaterally triceps jerk could bot be elicited bilaterally sensation intact). No: Loss of Sensation Labs: CBC, BMP 08/10/17 09:50 08/10/17 09:50 Imaging - Results Chest X-ray: Report Reviewed, Image Reviewed Cat Scan: Report Reviewed, Image Reviewed (head CT, thoracic, and lumbar spine CT) Assessment/Plan 37F with PMH of discoid lupus and right kidney cancer presents to the hospital with twitching of her neck, arms, and extremities with associated paresthesias of the extremities. Problem list: Twiching of neck arms and extremities with paresthesias r/o demyelinating d/o vs drug induced vs psychiatric d/o discoid lupus lumbago Plan: place on med/surg observation CT head L and S spine noted CXR noted will get MRI brain with contrast will get eeg will consider EMG restart plaquenil rheumatology if needed Case discussed with attending and admitting internet marketing consultant full H&P to follow Visit type - Emergency Visit Emergency Visit: Yes Care time: The patient presented to the Emergency Department on the above date and was hospitalized for further evaluation of their emergent condition. - New Patient This patient is new to me today: Yes Date on this admission: 08/10/17 - Critical Care Critical Care patient: No
--- NOTE | 2017-08-10 14:08 | HP ---
CHIEF COMPLAINT: twitching x 2 days PCP: Dr. Velasquez HISTORY OF PRESENT ILLNESS: 37 y/o F with PMH lupus (dx 2007; sees Dr. Medina. Has been on hydroxychloroquine 200 mg PO BID for 10 yrs, stopped 1 month ago d/t nausea, emesis), renal cancer s/p R partial nephrectomy (2015. never needed chemo or rad ), who presents to the ED c/o diffuse body twitching over the past two days. As per pt, two days ago, she suddenly noticed twitching and spasms in her chin. Episodes would occur over 5-10 seconds and subside before reoccurring. Shortly after, it continued to include her upper extremities, L shoulder, neck, and lower extremities. Her episodes are not a/w numbness. During this time, she also endorses a sensation of "water rushing down her back" and diffuse chest pressure. Her sx are alleviated by sleep and ativan. She denies recent physical exertion, MCNAMARA, visual or gait changes, tongue biting, bowel or bladder incontinence, fever, chills, SOB, abdominal pain or changes in urinary or bowel function. Pt states that she used to go to a used car manager in the past, but stopped going to him as he was known for giving patients opiates. Recently, she has also started taking a medication called nytol inconsistently over the past month for insomnia. ER course was notable for: (1) Tylenol IV x 1 (2) Benadryl 25mg x 1 (3) Ativan 1mg x 3 Recent Travel: none PAST MEDICAL HISTORY: as above PAST SURGICAL HISTORY: s/p R partial nephrectomy (2015), tubal ligation (2012) Social History: lives at home in [place]. 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 Father is from [place], Mother from [facility] Allergies oxycodone HCl [From Percocet] Allergy (Verified 08/10/17 08:40) Itching HOME MEDICATIONS: Home Medications Medication Instructions Recorded Hydroxychloroquine Sulfate 200 mg PO BID 10/03/15 [Plaquenil] REVIEW OF SYSTEMS CONSTITUTIONAL: Absent: fever, chills, diaphoresis, generalized weakness, malaise, loss of appetite, weight change HEENT: Absent: rhinorrhea, nasal congestion, throat pain, throat swelling, difficulty swallowing, mouth swelling, ear pain, eye pain, visual changes CARDIOVASCULAR: Absent: chest pain, syncope, palpitations, irregular heart rate, lightheadedness , peripheral edema RESPIRATORY: Absent: cough, shortness of breath, dyspnea with exertion, orthopnea, wheezing, stridor, hemoptysis GASTROINTESTINAL: Absent: abdominal pain, abdominal distension, nausea, vomiting, diarrhea, constipation, melena, hematochezia GENITOURINARY: Absent: dysuria, frequency, urgency, hesitancy, hematuria, flank pain, genital pain MUSCULOSKELETAL: Absent: myalgia, arthralgia, joint swelling, back pain, neck pain SKIN: Absent: rash, itching, pallor HEMATOLOGIC/IMMUNOLOGIC: Absent: easy bleeding, easy bruising, lymphadenopathy, frequent infections ENDOCRINE: Absent: unexplained weight gain, unexplained weight loss, heat intolerance, cold intolerance NEUROLOGIC: +twitching Absent: headache, focal weakness or paresthesias, dizziness, unsteady gait, seizure, mental status changes, bladder or bowel incontinence PSYCHIATRIC: Absent: anxiety, depression, suicidal or homicidal ideation, hallucinations. PHYSICAL EXAMINATION Vital Signs - 24 hr 08/10/17 08/10/17 08:40 13:56 Temperature 99 F 97.5 F L Pulse Rate 97 H Pulse Rate [ 91 H Radial] Respiratory 17 20 Rate Blood Pressure 144/102 Blood Pressure 115/71 [Left Arm] O2 Sat by Pulse 100 100 Oximetry (%) GENERAL: Sitting comfortably in bed. Awake, alert, and fully oriented, with sporadic twitching in L shoulder and neck HEAD: Normal with no signs of trauma. EYES: Pupils equal, round and reactive to light, extraocular movements intact, sclera anicteric, conjunctiva clear. EARS, NOSE, THROAT: Ears normal, nares patent, oropharynx clear without exudates. Moist mucous membranes. NECK: Normal range of motion, supple. No nuchal rigidity. LUNGS: Breath sounds equal, clear to auscultation bilaterally. No wheezes, and no crackles. No accessory muscle use. Poor inspiratory effort HEART: Tachycardic rate and rhythm, normal S1 and S2 without murmur, rub or gallop. ABDOMEN: Soft, nontender, not distended, normoactive bowel sounds, no guarding, no rebound, no masses. MUSCULOSKELETAL: Normal range of motion at all joints. No bony deformities or tenderness. UPPER EXTREMITIES: 2+ radial pulses, warm, well-perfused. No cyanosis. No clubbing. No peripheral edema. LOWER EXTREMITIES: 2+ posterior tibial pulses, warm, well-perfused. No calf tenderness. No peripheral edema. NEUROLOGICAL: Cranial nerves II-XII intact. Normal speech. Motor strength 5/5 in upper and lower extremities, sensation intact throughout. Uvula midline, no deviation. No pronator drift. PSYCHIATRIC: Anxious SKIN: Warm, dry, normal turgor, no rashes or lesions noted Laboratory Results - last 24 hr 08/10/17 08/10/17 08/10/17 09:36 09:50 09:50 WBC 6.7 RBC 4.51 Hgb 13.9 Hct 42.1 MCV 93.2 MCH 30.9 MCHC 33.1 RDW 13.0 Plt Count 207 MPV 9.3 Neutrophils % 75.1 Lymphocytes % 15.8 D Monocytes % 8.4 Eosinophils % 0.1 Basophils % 0.6 PT with INR 11.60 INR 1.03 PTT (Actin FS) 31.4 Albumin Urine Color Straw Urine Appearance Clear Urine pH 7.0 Ur Specific Castor 1.009 Urine Protein Negative Urine Glucose (UA) Negative Urine Ketones Trace H Urine Blood Negative Urine Nitrite Negative Urine Bilirubin Negative Urine Urobilinogen Negative Ur Leukocyte Esterase Negative Urine HCG, Qual Negative 08/10/17 09:50 PTT (Actin FS) Sodium 140 Potassium 3.8 Chloride 108 H Carbon Dioxide 24 Anion Gap 8 BUN 11 Creatinine 1.0 Creat Clearance w eGFR > 60 Random Glucose 83 Calcium 9.2 Phosphorus 3.7 Magnesium 2.2 Total Bilirubin 0.9 AST 18 ALT 28 Alkaline Phosphatase 49 Creatine Kinase 415 H Creatine Kinase Index 0.7 CK-MB (CK-2) 3.153 Troponin I < 0.02 Total Protein 8.0 Albumin 4.6 Ur Specific Castor EKG -NSR, rate 80bpm, OH 164ms, QRS 84ms, Qtc 477ms IMAGING -08/10/17: Head CT non-con: no acute intracranial hemorrhage, mass effects, or hydrocephalus -08/10/17: CXR: no acute changes -08/10/17: Lumbar/thoracic spine CT: mild loss of disc height posteriorly at L3- L4, L4-L5, L5-S1. No significant canal or neural foraminal stenosis in the thoracic and lumbar spines. There is shallow bulging of annulus at L3-L4, L4- L5. There is mild facet arthropathy at L5-S1, and L4-L5 right more than left. There are incompletely imaged postsurgical changes in the lower pole of the R kidney. ASSESSMENT/PLAN: 37 y/o F with PMH lupus (dx 2007; sees Dr. Medina. Has been on hydroxychloroquine 200 mg PO BID for 10 yrs, stopped 1 month ago d/t nausea, emesis), renal cancer s/p R partial nephrectomy (2016. never needed chemo or rad ), who presents to the ED c/o diffuse body twitching over the past two days. #Extremity twitching, r/o neurological disorder -atypical presentation, improves with distraction and discussion -not known side effect of hydroxychloroquine, has been on for many years -unlikely hypocalcemia as corrected Ca WNL; would cause tetany -may be secondary to anxiety, though pt does not endorse life stressors -no significant deficits noted on neuro exam -F/u TSH, B12, Folate - reversible causes -MRI w/ gadolinium - determine if changes in myelination -EEG -Neuro consult- Dr. Capps -if continues, can use long acting clonazepam -May need psych consult if does not resolve #Lupus -Continue hydroxychloroquine 200mg PO BID -may explain "chest pressure" ; initial trop (-) #F/E/N -no IVF indicated at this time; renal fnc WNL -continue to follow lytes -regular diet #PPX early ambulation; expect <48 hr stay #Dispo monitoring on observation Visit type - Emergency Visit Emergency Visit: Yes Care time: The patient presented to the Emergency Department on the above date and was hospitalized for further evaluation of their emergent condition. - New Patient This patient is new to me today: Yes Date on this admission: 08/10/17 - Critical Care Critical Care patient: No Hospitalist Screening - Colonoscopy Questionnaire Colonoscopy Questionnaire: Colonoscopy Questionnaire - Patient: 50 - 75 years old and never had a screening colonoscopy: No History of colon or rectal polyps, or CA: Unknown History of IBD, Crohn's disease or UC: Unknown History of abdominal radiation therapy as a child: Unknown - Relative: 1 with colon or rectal CA, or polyps at age 60 or younger: Unknown Colon or rectal CA diagnosed at age 45 or younger: Unknown Multiple relatives with colon or rectal CA: Unknown - Outcome: Screening Result: Negative Screen
[2017-08-10 17:44] LABS: COCAINE, UR NEGATIVE ng/ml (CUTOFF=300); METHADONE, UR NEGATIVE ng/ml (CUTOFF=300); OPIATES, URI NEGATIVE ng/ml (CUTOFF=300); PHENCYCLIDINE,URINE NEGATIVE ng/ml (CUTOFF=25); URINE AMPHETAMINES NEGATIVE ng/ml (CUTOFF=500); URINE BARBITURATES NEGATIVE ng/ml (CUTOFF=200); URINE BENZODIAZEPINES NEGATIVE ng/ml (CUTOFF=200)
--- NOTE | 2017-08-10 18:06 | EKG ---
Test Reason : Blood Pressure : / mmHG Vent. Rate : 080 BPM Atrial Rate : 080 BPM P-R Int : 164 ms QRS Dur : 084 ms QT Int : 414 ms P-R-T Axes : 076 062 029 degrees QTc Int : 477 ms NORMAL SINUS RHYTHM WITH SINUS ARRHYTHMIA POSSIBLE LEFT ATRIAL ENLARGEMENT BORDERLINE ECG WHEN COMPARED WITH ECG OF 04-FEB-2017 11:08, NO SIGNIFICANT CHANGE WAS FOUND Confirmed by DEYANIRA ISIDRO, ANAY ([id number]) on 08/10/2017 6:05:34 PM Referred By: Confirmed By:ANAY MCMILLAN MD
[2017-08-10] MEDS ORDERED: IBUPROFEN 400 MG TABLET (FP) PO ONE (20:37)
[2017-08-10] MEDS: HYDROXYCHLOROQUINE SO4 200 MG TABLET (FP) PO SCH (22:07)
[2017-08-11] MEDS ORDERED: MELATONIN 5 MG TABLETS PO ONE (00:25)
[2017-08-11 08:15] LABS: BASO % 0.9 % (0-2.0); EOS % 0.8 % (0-4.5); HEMOGLOBIN 12.3 GM/dL (10.7-15.3); LYMPH % 33.7 % (8-40); MCH 31.2 pg (25.7-33.7); MCHC 33.3 g/dl (32.0-36.0); MEAN CELL VOLUME 93.5 fl (80-96); MONO % 10.7 % (3.8-10.2); NEUT % 53.9 % (42.8-82.8); PLATELET COUNT 180 K/MM3 (134-434); RBC 3.95 M/mm3 (3.60-5.2); RDW 12.5 % (11.6-15.6); WHITE BLOOD COUNT 4.3 K/mm3 (4.0-10.0)
[2017-08-11 08:39] LABS: CHLORIDE 112 mmol/L (98-107); POTASSIUM 4.3 mmol/L (3.5-5.1); SODIUM 142 mmol/L (136-145)
[2017-08-11 09:23] LABS: MAGNESIUM 2.2 mg/dL (1.8-2.4); PHOSPHOROUS 3.7 mg/dL (2.5-4.9)
[2017-08-11 09:26] LABS: ANION GAP 7 (8-16); BLOOD UREA NITROGEN 9 mg/dL (7-18); CALCIUM 8.4 mg/dL (8.5-10.1); CO2 23 mmol/L (21-32); CREATININE 0.8 mg/dL (0.55-1.02); GLUCOSE,RANDOM 85 mg/dL (74-106)
[2017-08-11] MEDS ORDERED: PT OWN MED DRAWER 7, Y5N ONE (10:11)
[2017-08-11] MEDS: HYDROXYCHLOROQUINE SO4 200 MG TABLET (FP) PO SCH ×2 (10:13→22:35)
--- NOTE | 2017-08-11 12:19 | PN ---
Teaching Attending Note Name of Resident: Becky Osei ATTENDING PHYSICIAN STATEMENT I saw and evaluated the patient. I reviewed the resident's note and discussed the case with the resident. I agree with the resident's findings and plan as documented. SUBJECTIVE: No fever or chills. Cont to have twitching. reports twitching started 2 days ago followed by severe pain in middle spine and numbness in legs denies new meds or ingestions . twitching is absent when intentionally doing something OBJECTIVE: NAD , AAOx3. wide twitches in upper extremities and Le , and neck MMM, no facial droop. Cv: RRR Lungs: CTAB ext : no edema or erythema MS: TTP ove lower thoracic ANd upper lumbar spine , no erythema Neuro: EOMI, round equal pupils reactive to light . tongue and uvula at midline . facial sensation nL. strength 5/5 in upper and lower extremities proximally and distally. sensation to light touch decreased in L forearm and B/l legs otherwise nl over feet , thighs , hands, and other parts of body reflexes 2+ knee jerk and bicesp b/l . Finger to nose NL. gait NL, involuntary movements of neck and upper extremities while walking rectal tone: NL ASSESSMENT AND PLAN: 37 y/o lady with h/o discoid Lupus, and R renal cancer s/p partial nephrectomy who presented with abnormal twitches . 1- Abnormal twitches of extremities and neck. unclear etiology. might have chorea . due to the improvement with voluntary activities, dystonia is unlikely. also functional dystonia in picture. Cause is unclear: vasculitis , autoimmune , paraneoplastic ( given her cancer) , demyelinating lesions . although has tenderness over the spine, epidural abscess or transverse myelitis might be unlikely - MRI of brain pending - add MRI of T and L spine due to TTP over spine. - check HIV - might need LP - check ESR , CRP - check RPR - protein electropheresis pending - tox screen neg . Not - plaqunil side defects reviewed. no neuro - tray 1 mg of IV ativan - will discuss with neuro . consult pending 2- h/o renal cancer. 3- DVT PX : hold for possible LP
[2017-08-11] MEDS ORDERED: clonazePAM 0.5 MG TABLET PO PRN (14:08)
--- NOTE | 2017-08-11 14:13 | PN ---
Progress Note (short form) - Note Progress Note: HPI 37 year old female history of Lupus ( 2003), she has right partial nephrectomy . 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 She has been having abnormal jerky motion of neck, left shoulder area. THere is no LOC, no tongue bite or incontinence. She was given benadryl and ativan, That helped her to calm down. Her initial lab work up and ct head is normal. Patient denies any stress, She denies any alcohol abuse. She has not been given any new medication recently. She continue to have symptoms after benadryl was given. She denies any difficulty talking or, weakness or LOC. She also do complain of both feet numbness upto knee and lower part of thigh. She denies any history of DM or alcohol abuse. she had mri of brain, reports pending. She also waiting to get mri of T and L spine. Allergies: oxycodone HCl Past surgical history: tubal ligation, right partial nephrectomy Social history: denied smoking, recreational drug use. social etoh use. Medication Plaquenil Neurological Examination Alert able to follow command, There is occasional neck movement ( circumduction) and atpyical left shoulder movmeent were seen no motor weakness was identified CN , eomi, pupil reactive, no face asymmetry sensation - diminished to pin prick below lower part of thigh reflex are grade [address] head is normal, waiting for mri of brain( done and waiting for results) Assessment- 1. abnormal head and shoulder movement ? differential diagnosis seems to be chorea or hemiballastic movement, rule out seizure or conversion reaction . mri ofbrain and eeg 2. lower extremity loss of sensation ? suspect peripheral neuropathy Neuropathy work up was negative and emg ( may be done outpatient ), unlikley to be GBS as reflex are present though diminished, waiting for MRI of T and L spine. would continue to follow up Thanking you so much Rayshawn Capps MD
[2017-08-11] MEDS: clonazePAM 0.5 MG TABLET PO SCH ×2 (14:38→22:35)
--- NOTE | 2017-08-11 15:46 | PN ---
Physical Exam: SUBJECTIVE: Patient seen and examined at bedside. Overnight, pt able to ambulate to bed but still with twitching. This afternoon, pt still with myoclonic/dystonic movements in upper and lower extremities. States that she had difficulty sleeping for this reason. Movements improved after Klonopin dose. Denies MCNAMARA, fever, chills, SOB, or changes in urinary or bowel function. OBJECTIVE: Vital Signs Period Temp Pulse Resp BP Sys/Cardozo Pulse Ox Last 24 Hr 98.4 F-98.7 F 75-89 18-20 115-159/50-90 99-99 GENERAL: The patient is with resting in bed with sudden dystonic movements in upper and lower extremities. awake, alert, and fully oriented, in mild distress HEAD: Normal with no signs of trauma. EYES: PERRL, extraocular movements intact, sclera anicteric, conjunctiva clear. ENT: Ears normal, nares patent, oropharynx clear without exudates, moist mucous membranes NECK: Trachea midline, supple. LUNGS: Breath sounds equal, clear to auscultation bilaterally, no wheezes, no crackles, no accessory muscle use. HEART: Regular rate and rhythm, S1, S2 without murmur, rub or gallop. ABDOMEN: Soft, nontender, nondistended, normoactive bowel sounds, no guarding, no rebound. EXTREMITIES: 2+ posterior tibial pulses, warm, well-perfused, no edema. NEUROLOGICAL: Cranial nerves II through XII grossly intact. +With sudden dystonic movements in upper and lower extremities. Motor function 5/5 in all extremities, sensation intact throughout except for lateral side of feet. PSYCH: +anxious SKIN: Warm, dry, normal turgor Laboratory Results 08/10/17 08/10/17 08/11/17 09:50 16:15 06:30 Troponin I < 0.02 Total Protein (PEP) Pending Albumin (PEP) Pending Globulin Pending Albumin/Globulin Ratio Pending Beta Globulins Pending Vitamin B12 362 Folate Pending Serum Folate 22 H Folate Hemolysate Pending TSH Opiates Screen Negative Methadone Screen Negative Barbiturate Screen Negative Phencyclidine Screen Negative Ur Amphetamines Screen Negative MDMA (Ecstasy) Screen Negative Benzodiazepines Screen Negative Cocaine Screen Negative U Marijuana (THC) Screen Negative BELL M-Ramirez Pending 08/11/17 08/11/17 08/11/17 06:30 06:30 13:55 WBC 4.3 D C-Reactive Protein < 0.3 TSH 0.77 08/11/17 15:15 HIV 1&2 Antibody Screen Pending HIV P24 Antigen Pending Active Medications Generic Name Dose Route Start Last Admin Trade Name Manolo PRN Reason Stop Dose Admin Clonazepam 0.5 mg 08/11/17 14:24 08/11/17 14:38 Klonopin - PO 0.5 mg BID LUCILA Administration Hydroxychloroquine Sulfate 200 mg 08/10/17 22:00 08/11/17 10:13 Plaquenil - PO 200 mg BID LUCILA Administration Sodium Chloride 1,000 mls @ 125 mls/hr 08/10/17 09:45 08/10/17 19:37 Normal Saline - IV 125 mls/hr ASDIR LUCILA Administration EKG -NSR, rate 80bpm, HI 164ms, QRS 84ms, Qtc 477ms IMAGING -08/10/17: Head CT non-con: no acute intracranial hemorrhage, mass effects, or hydrocephalus -08/10/17: CXR: no acute changes -08/10/17: Lumbar/thoracic spine CT: mild loss of disc height posteriorly at L3- L4, L4-L5, L5-S1. No significant canal or neural foraminal stenosis in the thoracic and lumbar spines. There is shallow bulging of annulus at L3-L4, L4- L5. There is mild facet arthropathy at L5-S1, and L4-L5 right more than left. There are incompletely imaged postsurgical changes in the lower pole of the R kidney. -08/11: Brain MRI:no acute pathology -Lumbar spine MRI: not yet completed -Thoracic spine MRI: not yet completed ASSESSMENT/PLAN: 37 y/o F with PMH lupus (dx 2007; sees Dr. Medina. Has been on hydroxychloroquine 200 mg PO BID for 10 yrs, stopped 1 month ago d/t nausea, emesis), renal cancer s/p R partial nephrectomy (2016. never needed chemo or rad ), who presents to the ED c/o diffuse body twitching over the past two days. #Myoclonic movements, r/o neurological disorder or chorea -to determine etiology - may be 2/2 lupus, autoimmune, vasculitis, neurosyphilis , paraneoplastic syndrome -no significant deficits noted on neuro exam -TSH, B12, Folate - reversible causes - WNL -MRI w/ gadolinium - no acute path -Will check RPR to r/o neurosyphilis -F/u HIV testing; pt consented -F/u protein electrophoresis -F/u ESR, CRP -serum ceruloplasmin, antiphospholipid Abs - outpatient tests only -lyme titers -EEG -(-) test -Neuro consult- Dr. Capps -Started on Klonopin 0.5mg PO TID; has improved sx with first dose -Will consider LP if does not resolve with Klonopin #Spinal tenderness -F/u MRI T, L spine to r/o compression #Lupus -Continue hydroxychloroquine 200mg PO BID -may explain "chest pressure" ; initial trop (-) #F/E/N -no IVF indicated at this time; renal fnc WNL -continue to follow lytes -regular diet #PPX early ambulation; expect <48 hr stay #Dispo monitoring on observation Visit type - Emergency Visit Emergency Visit: No - New Patient This patient is new to me today: No - Critical Care Critical Care patient: No
[2017-08-11] MEDS: SODIUM CHLORIDE 1,000 ML IV SCH (17:20)
[2017-08-11] MEDS ORDERED: clonazePAM 0.5 MG TABLET PO SCH (22:00)
[2017-08-11] MEDS ORDERED: levETIRAcetam 500 MG/5 ML INJECTION VIAL IVPB ONE ×2 (22:08)
--- NOTE | 2017-08-11 22:17 | RAPID ---
Physical Examination Vital Signs: Vital Signs Temperature 98.4 F 08/11/17 15:02 Pulse Rate 79 08/11/17 15:02 Respiratory Rate 18 08/11/17 15:02 Blood Pressure 115/74 08/11/17 15:02 O2 Sat by Pulse Oximetry (%) 98 08/11/17 17:00 Labs: CBC, BMP 08/11/17 06:30 08/11/17 06:30 Rapid Response - Rapid Response Assessment: Rapid Response called at 10PM after RN found patient on the floor with erratic seizure-like movement of head and all 4 extremities. While on floor, patient unresponsive to name and not following commands. Ativan 2mg stat ordered. Seizure broke at 10:08PM. After seizure broke, patient relayed that she had gotten out of bed to use the bathroom and then was going to charge her phone. The next thing she recalls is waking up on the floor. Denies any aura or inciting symptoms prior to episode. When patient placed back into bed, she was conversing normally with no post- ictal state noted. Patient asking "what happened?". No headache, urinary or fecal incontinence, or tongue biting noted. PE: BP 117/74 HR 93 RR 12 pSaO2 100% on RA General: aaox3, conversing normally Heart:RRR, normal s1/s2, no m/r/g Lung:CTAB Abd: Soft, NTND Neuro: Intermittent chorea-like movement in UE and head, no focal deficits A/P: 37yo woman with PMH of Lupus admitted for chorea-like movements of unclear etiology, currently being worked-up, who now had presumptive grand mal seizure witnessed progressing for 8 minutes. -Post-fall protocol initiated with stat Head CT, etc ordered -Stat CBC, CMP, cardiac profile, and lactic acid -Stat EKG -Load Keppra 1000mg IVPB, c/w with Keppra 500mg IVPB BID -Neurology already on board -transfer to Tele -1:1 observation until Tele bed available Critical Care Total Critical Care Time (in minutes): 40 Critical Care Statement: The care of this patient involved high complexity decision making to prevent further life threatening deterioration of the patient 's condition and/or to evaluate & treat vital organ system(s) failure or risk of failure.
[2017-08-11 23:02] LABS: BASO % 0.7 % (0-2.0); EOS % 0.6 % (0-4.5); HEMOGLOBIN 13.3 GM/dL (10.7-15.3); LYMPH % 28.5 % (8-40); MCH 30.9 pg (25.7-33.7); MCHC 33.3 g/dl (32.0-36.0); MEAN CELL VOLUME 92.9 fl (80-96); MEAN PLT VOLUME 9.4 fl (7.5-11.1); MONO % 8.9 % (3.8-10.2); NEUT % 61.3 % (42.8-82.8); PLATELET COUNT 223 K/MM3 (134-434); RBC 4.31 M/mm3 (3.60-5.2); RDW 12.6 % (11.6-15.6)
[2017-08-11 23:13] LABS: ANION GAP 8 (8-16); BLOOD UREA NITROGEN 12 mg/dL (7-18); CALCIUM 8.4 mg/dL (8.5-10.1); CHLORIDE 109 mmol/L (98-107); CO2 24 mmol/L (21-32); CREATININE 0.9 mg/dL (0.55-1.02); GLUCOSE,RANDOM 91 mg/dL (74-106); POTASSIUM 4.3 mmol/L (3.5-5.1); SODIUM 141 mmol/L (136-145)
[2017-08-12] MEDS ORDERED: ACETAMINOPHEN 325 MG TABLET (FP) PO ONE ×2 (02:41→04:00)
[2017-08-12 08:42] LABS: BASO % 1.1 % (0-2.0); EOS % 0.6 % (0-4.5); HEMATOCRIT 36.6 % (32.4-45.2); HEMOGLOBIN 12.1 GM/dL (10.7-15.3); LYMPH % 28.3 % (8-40); MCH 31.1 pg (25.7-33.7); MCHC 33.2 g/dl (32.0-36.0); MEAN CELL VOLUME 93.7 fl (80-96); MONO % 9.1 % (3.8-10.2); NEUT % 60.9 % (42.8-82.8); PLATELET COUNT 216 K/MM3 (134-434); RDW 12.8 % (11.6-15.6); WHITE BLOOD COUNT 4.5 K/mm3 (4.0-10.0)
[2017-08-12 09:08] LABS: CHLORIDE 112 mmol/L (98-107); SODIUM 142 mmol/L (136-145)
[2017-08-12 09:19] LABS: ANION GAP 9 (8-16); BLOOD UREA NITROGEN 7 mg/dL (7-18); CALCIUM 8.2 mg/dL (8.5-10.1); CO2 21 mmol/L (21-32); CREATININE 0.7 mg/dL (0.55-1.02); GLUCOSE,RANDOM 89 mg/dL (74-106); PHOSPHOROUS 3.6 mg/dL (2.5-4.9)
[2017-08-12 09:34] LABS: POTASSIUM 4.3 mmol/L (3.5-5.1)
--- NOTE | 2017-08-12 09:37 | PN ---
Physical Exam: SUBJECTIVE: Patient seen and examined at bedside. Overnight, pt with erratic seizure like activity as per night team. Pt found on the ground with tonic- clonic movements for approximately eight minutes. Pt woke up while on the floor , asking what had happened. Repeat head CT done d/t head trauma without findings. Pt without tongue biting, urinary or bowel incontinence, or post- ictal confusion after episode. Keppra loading dose of 1000mg IVPB x 1 given, and started on Keppra 500mg IVPBx1 . Today, pt resting comfortably in bed, without witnessed choreaform movement in AM, however continued in afternoon as soon as team walked in. Verbal during episodes. Denies current MCNAMARA, fever, chills , SOB, or current changes in urinary or bowel function. OBJECTIVE: Vital Signs Period Temp Pulse Resp BP Sys/Cardozo Pulse Ox Last 24 Hr 98.4 F-99.0 F 75-93 18-20 102-143/54-90 98-100 GENERAL: The patient is resting in bed, without choreaform movement. Appears comfortable HEAD: Normal with no signs of trauma. EYES: PERRL, extraocular movements intact, sclera anicteric, conjunctiva clear. No ptosis. Without facial asymmetry ENT: Ears normal, nares patent, oropharynx clear without exudates, moist mucous membranes. NECK: Trachea midline, supple. LUNGS: Breath sounds equal, clear to auscultation bilaterally, no wheezes, no crackles, no accessory muscle use. HEART: Regular rate and rhythm, S1, S2 without murmur, rub or gallop. ABDOMEN: Soft, nontender, nondistended, normoactive bowel sounds, no guarding, no rebound EXTREMITIES: 2+ pt pulses, warm, well-perfused, no edema. NEUROLOGICAL: Cranial nerves II through XII grossly intact. No choreaform movements. Motor strength 5/5 in upper and lower extremities. Sensation intact throughout except diminished on lateral feet. PSYCH: Normal mood, normal affect. SKIN: Warm, dry, normal turgor Abnormal Laboratory Results - last 24 hr 08/11/17 08/12/17 22:19 08:12 Chloride 109 H 112 H Calcium 8.4 L 8.2 L Creatine Kinase 523 H CK-MB (CK-2) 5.462 H Active Medications Generic Name Dose Route Start Last Admin Trade Name Freq PRN Reason Stop Dose Admin Clonazepam 0.5 mg 08/11/17 14:24 08/11/17 22:35 Klonopin - PO 0.5 mg BID LUCILA Administration Hydroxychloroquine Sulfate 200 mg 08/10/17 22:00 08/11/17 22:35 Plaquenil - PO 200 mg BID LUCILA Administration Sodium Chloride 1,000 mls @ 125 mls/hr 08/10/17 09:45 08/11/17 17:20 Normal Saline - IV 125 mls/hr ASDIR LUCILA Administration EKG -NSR, rate 80bpm, FL 164ms, QRS 84ms, Qtc 477ms IMAGING -08/10/17: Head CT non-con: no acute intracranial hemorrhage, mass effects, or hydrocephalus -08/10/17: CXR: no acute changes -08/10/17: Lumbar/thoracic spine CT: mild loss of disc height posteriorly at L3- L4, L4-L5, L5-S1. No significant canal or neural foraminal stenosis in the thoracic and lumbar spines. There is shallow bulging of annulus at L3-L4, L4- L5. There is mild facet arthropathy at L5-S1, and L4-L5 right more than left. There are incompletely imaged postsurgical changes in the lower pole of the R kidney. -08/11: Brain MRI:no acute pathology -Lumbar spine MRI: not yet completed -Thoracic spine MRI: not yet completed -08/11/17: Head CT non-con s/p fall/seizure: unremarkable, without acute findings. No hemorrhage Microbiology 08/10/17 09:50 Urine - Urine Clean Catch Urine Culture - Final NO GROWTH OBTAINED ASSESSMENT/PLAN: 37 y/o F with PMH lupus (dx 2007; sees Dr. Mednia. Has been on hydroxychloroquine 200 mg PO BID for 10 yrs, stopped 1 month ago d/t nausea, emesis), renal cancer s/p R partial nephrectomy (2016. never needed chemo or rad ), who presents to the ED c/o diffuse body twitching over the past two days. #Myoclonic movements, r/o neurological disorder or chorea -to determine etiology - may be 2/2 lupus, autoimmune, vasculitis, neurosyphilis , paraneoplastic syndrome -no significant deficits noted on neuro exam -TSH, B12, Folate - reversible causes - WNL -MRI w/ gadolinium - no acute path -Will check RPR to r/o neurosyphilis -HIV (-) -F/u protein electrophoresis -F/u ESR, CRP 0.3 (WNL) -serum ceruloplasmin, antiphospholipid Abs - outpatient tests only -lyme titers -pending -EEG -(-) test -Neuro consult- Dr. Capps -Psych consult- Dr. Bell -Started on Klonopin 0.5mg PO TID; has improved sx with first dose #?seizure like activity -pt received Keppra 1000mg IVPB x 1, 500mg IVPB x1 -without tonic-clonic movements since -will be seen and eval by neuro for further recs -telemetry monitoring #Spinal tenderness -F/u MRI T, L spine to r/o compression - pending #Lupus -Continue hydroxychloroquine 200mg PO BID -may explain "chest pressure" ; initial trop (-) #F/E/N -no IVF indicated at this time; renal fnc WNL -continue to follow lytes -regular diet #PPX early ambulation, SCD's #Dispo tele monitoring Visit type - Emergency Visit Emergency Visit: No - New Patient This patient is new to me today: No - Critical Care Critical Care patient: No
[2017-08-12] MEDS ORDERED: PT OWN MED DRAWER 7, Y5N ONE (10:24)
[2017-08-12] MEDS: SODIUM CHLORIDE 1,000 ML IV SCH (10:27)
[2017-08-12] MEDS: clonazePAM 0.5 MG TABLET PO SCH ×3 (10:28→22:01)
[2017-08-12] MEDS ORDERED: ACETAMINOPHEN 325 MG TABLET (FP) ONE (10:29)
[2017-08-12 12:10] LABS: MAGNESIUM 2.2 mg/dL (1.8-2.4)
[2017-08-12] MEDS: HYDROXYCHLOROQUINE SO4 200 MG TABLET (FP) PO SCH ×2 (12:35→21:54)
--- NOTE | 2017-08-12 14:28 | EKG ---
Test Reason : Blood Pressure : / mmHG Vent. Rate : 080 BPM Atrial Rate : 080 BPM P-R Int : 168 ms QRS Dur : 086 ms QT Int : 388 ms P-R-T Axes : 073 038 011 degrees QTc Int : 447 ms NORMAL SINUS RHYTHM NORMAL ECG WHEN COMPARED WITH ECG OF 10-AUG-2017 10:28, NO SIGNIFICANT CHANGE WAS FOUND Confirmed by CHIARA MCCARTNEY MD ([id number]) on 08/12/2017 2:27:56 PM Referred By: Confirmed By:CHIARA MCCARTNEY MD
--- NOTE | 2017-08-12 16:28 | PN ---
Teaching Attending Note Name of Resident: Becky Osei ATTENDING PHYSICIAN STATEMENT I saw and evaluated the patient. I reviewed the resident's note and discussed the case with the resident. I agree with the resident's findings and plan as documented. SUBJECTIVE: Overnight, patient had an episode of seizure-like activity lasting approximately 8 minutes. There was no post-ictal period moted. Patient states that she does not remember last night. Today, she reports having same jerking movements of her body which improve with Klonopin. OBJECTIVE: Vital Signs Period Temp Pulse Resp BP Sys/Cardozo Pulse Ox Last 24 Hr 98.1 F-99.0 F 76-93 18-20 102-120/54-77 98-100 HEART: S1S2, RRR LUNGS: Clear ABDOMEN: Soft, non-tender, non-distended, normal BS EXTREMITIES: No edema Laboratory Results - last 24 hr 08/11/17 08/11/17 08/11/17 15:15 22:19 22:19 WBC 5.0 RBC 4.31 Hgb 13.3 Hct 40.0 MCV 92.9 MCH 30.9 MCHC 33.3 RDW 12.6 Plt Count 223 D MPV 9.4 Neutrophils % 61.3 Lymphocytes % 28.5 Monocytes % 8.9 Eosinophils % 0.6 Basophils % 0.7 Nucleated RBC % 0 Sodium 141 Potassium 4.3 Chloride 109 H Carbon Dioxide 24 Anion Gap 8 BUN 12 Creatinine 0.9 Random Glucose 91 Lactic Acid Calcium 8.4 L Phosphorus Magnesium Creatine Kinase 523 H Creatine Kinase Index 1.0 CK-MB (CK-2) 5.462 H Troponin I < 0.02 RPR Titer HIV 1&2 Antibody Screen Negative HIV P24 Antigen Negative 08/11/17 08/12/17 08/12/17 23:54 08:12 08:12 WBC 4.5 RBC 3.90 Hgb 12.1 Hct 36.6 MCV 93.7 MCH 31.1 MCHC 33.2 RDW 12.8 Plt Count 216 MPV 9.0 Neutrophils % 60.9 Lymphocytes % 28.3 Monocytes % 9.1 Eosinophils % 0.6 Basophils % 1.1 Nucleated RBC % 0 Sodium Potassium Chloride Carbon Dioxide Anion Gap BUN Creatinine Random Glucose Lactic Acid 0.8 Calcium Phosphorus Magnesium Creatine Kinase Creatine Kinase Index CK-MB (CK-2) Troponin I RPR Titer Nonreactive HIV 1&2 Antibody Screen HIV P24 Antigen 08/12/17 08:12 WBC RBC Hgb Hct MCV MCH MCHC RDW Plt Count MPV Neutrophils % Lymphocytes % Monocytes % Eosinophils % Basophils % Nucleated RBC % Sodium 142 Potassium 4.3 Chloride 112 H Carbon Dioxide 21 Anion Gap 9 BUN 7 Creatinine 0.7 Random Glucose 89 Lactic Acid Calcium 8.2 L Phosphorus 3.6 Magnesium 2.2 Creatine Kinase Creatine Kinase Index CK-MB (CK-2) Troponin I RPR Titer HIV 1&2 Antibody Screen HIV P24 Antigen Current Medications Generic Name Dose Route Start Last Admin Trade Name Manolo PRN Reason Stop Dose Admin Clonazepam 0.5 mg 08/11/17 14:24 08/12/17 10:28 Klonopin - PO 0.5 mg BID LUCILA Administration Hydroxychloroquine Sulfate 200 mg 08/10/17 22:00 08/12/17 12:35 Plaquenil - PO 200 mg BID LUCILA Administration Sodium Chloride 1,000 mls @ 125 mls/hr 08/10/17 09:45 08/12/17 10:27 Normal Saline - IV 125 mls/hr ASDIR LUCLIA Administration ASSESSMENT AND PLAN: This is a 37 year old woman with a history of SLE, renal cell carcinoma, partial right nephrectomy who presented to the ED with twitching of her body. 1. Twitching/jerking movements of head, neck, left shoulder with possible peripheral neuropathy - Neurology input appreciated - Seizure vs dystonic reaction vs conversion disorder - Has diminished pin prick sensation below lower thigh - Continue Klonopin - MRI of brain is normal - EEG ordered - ESR and C-RP normal, RPR negative, HIV negative, TSH normal, B12 normal - HbA1c 5.2 - Folate high (22, normal 3.1-17.5) - Lyme, SPEP pending - MRI of T-spine and L-spine ordered 2. SLE - Continue Plaquenil 3. History of renal cell carcinoma, partial right nephrectomy
--- NOTE | 2017-08-12 18:13 | PN ---
Progress Note (short form) - Note Progress Note: CC Abnormal Jerky in upper extremity and abnormal sensation below the knee HPI 37 year old female history of Lupus ( 2003), she has right partial nephrectomy . 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 She has been ahving abnormal jerky Motion. Patient has been started on klonapin and it is helping her but effect is wearing off. She do not get these episode during sleep. Patient denies any stress, She denies any alcohol abuse. She has not been given any new medication recently. She denies any difficulty talking or, weakness or LOC. She also do complain of both feet numbness upto knee and lower part of thigh. She denies any history of DM or alcohol abuse. Yesterday she has fallen out of bed, repeat ct head was normal. She was given keppra because of abnormal movement but later was stopped. Allergies: oxycodone HCl Past surgical history: tubal ligation, right partial nephrectomy Social history: denied smoking, recreational drug use. social etoh use. Medication Plaquenil Neurological Examination Alert able to follow command, There is occasional neck movement ( circumduction) and atpyical left shoulder movmeent were seen no motor weakness was identified CN , eomi, pupil reactive, no face asymmetry sensation - diminished to pin prick below lower part of thigh reflex are grade 1 generalized MRI of brain is normal, eeg i spending Assessment- 1. abnormal head and shoulder movement ? \ chorea vs conversion reaction. mri of brain is normal, eeg pending increase klonopin to .5 mg tid. 2. lower extremity loss of sensation ? suspect peripheral neuropathy - reflex are diminished but not absent, work up has been negative , I would do emg out patient Thanking you so much Rayshawn Capps MD
[2017-08-12] MEDS: ACETAMINOPHEN 325 MG TABLET (FP) PO PRN (20:06)
[2017-08-13] MEDS: clonazePAM 0.5 MG TABLET PO SCH ×2 (05:55→22:32)
[2017-08-13 06:35] LABS: BASO % 0.8 % (0-2.0); EOS % 0.1 % (0-4.5); HEMOGLOBIN 11.5 GM/dL (10.7-15.3); LYMPH % 28.7 % (8-40); MCH 31.2 pg (25.7-33.7); MCHC 33.7 g/dl (32.0-36.0); MEAN CELL VOLUME 92.5 fl (80-96); MEAN PLT VOLUME 8.7 fl (7.5-11.1); MONO % 7.4 % (3.8-10.2); PLATELET COUNT 181 K/MM3 (134-434); RBC 3.68 M/mm3 (3.60-5.2); RDW 12.4 % (11.6-15.6); WHITE BLOOD COUNT 4.8 K/mm3 (4.0-10.0)
[2017-08-13 07:02] LABS: ANION GAP 6 (8-16); BLOOD UREA NITROGEN 10 mg/dL (7-18); CHLORIDE 112 mmol/L (98-107); CO2 24 mmol/L (21-32); CREATININE 0.8 mg/dL (0.55-1.02); GLUCOSE,RANDOM 87 mg/dL (74-106); POTASSIUM 3.9 mmol/L (3.5-5.1); SODIUM 142 mmol/L (136-145)
[2017-08-13] MEDS ORDERED: PT OWN MED DRAWER 7, Y5N ONE (09:08)
[2017-08-13] MEDS: SODIUM CHLORIDE 1,000 ML IV SCH (10:01)
[2017-08-13] MEDS: HYDROXYCHLOROQUINE SO4 200 MG TABLET (FP) PO SCH ×2 (10:01→22:32)
[2017-08-13] MEDS: ACETAMINOPHEN 325 MG TABLET (FP) PO PRN ×2 (12:18→22:39)
--- NOTE | 2017-08-13 13:27 | CON.PSY ---
Psychiatry Consult Chief Complaint: I had Lupus, Kidney cancer and lot of other medical problems, I never had any psych issues. I am feeling these twitches , I dont know what they are. Patients PMD is Dr Tsai. Symptoms: reports: Anxiety - Previous Psychiatric Treatment Outpatient: None Inpatient: None - Previous Substance Abuse Treatment Outpatient: None Inpatient: None - Current Medications Current Medications: Active Medications Acetaminophen (Tylenol -) 650 mg PO Q6H PRN PRN Reason: PAIN LEVEL 1-5 Last Admin: 08/13/17 12:18 Dose: 650 mg Clonazepam (Klonopin -) 0.5 mg PO TID [facility] Last Admin: 08/13/17 05:55 Dose: 0.5 mg Hydroxychloroquine Sulfate (Plaquenil -) 200 mg PO BID [facility] Last Admin: 08/13/17 10:01 Dose: 200 mg Sodium Chloride (Normal Saline -) 1,000 mls @ 125 mls/hr IV ASDIR [facility] Last Admin: 08/13/17 10:01 Dose: 125 mls/hr Lorazepam (Ativan Injection -) 1 mg IVPUSH [employer] [facility] Stop: 08/13/17 14:00 - Allergies Allergies: Allergies Allergy/AdvReac Type Severity Reaction Status Date / Time oxycodone HCl [From Percocet] Allergy Itching Verified 08/10/17 08:40 - Current Living Status Usual Living Arrangement: Alone - Current Mental Status Evaluation Appearance: Well Groomed Attitude: Cooperative - Affect Affect: Full Range Appropriateness: Appropriate to Content - Mood Mood: Anxious - Speech/Language Expressive: Coherent - Psychomotor Activity Psychomotor Activity: Normal - Thought Process Thought Process: Intact - Thought Content Hallucinations: Absent Delusions: Absent - Self Perception Self Perception: No Impairment - Cognition Attention: Alert Orientation: Time Memory, Immediate Recall: Intact Memory, Short Term: 3/3 Memory, Remote with Promptin/3 - Concentration Serial Sevens Intact: Yes Simple Calculations Intact: Yes - Abstraction Proverb Interpretation: Intact Judgement: Intact - Insight Insight: Intact - Impulse Control Impulse Control: Minimally Impaired - Suicidal Ideation Suicidal Ideation: No - Homicidal Ideation Homicidal Ideation: No Assessment/Plan 1) Continue with Klonapin 2) Discharge when medically stable.
[2017-08-13 14:28] VITALS: BMI 22.9
--- NOTE | 2017-08-13 16:31 | EKG ---
Test Reason : Blood Pressure : / mmHG Vent. Rate : 117 BPM Atrial Rate : 117 BPM P-R Int : 168 ms QRS Dur : 088 ms QT Int : 256 ms P-R-T Axes : 056 065 -35 degrees QTc Int : 357 ms SINUS TACHYCARDIA NONSPECIFIC ST AND T WAVE ABNORMALITY ABNORMAL ECG WHEN COMPARED WITH ECG OF 11-AUG-2017 23:06, ST NOW DEPRESSED IN ANTERIOR LEADS NONSPECIFIC T WAVE ABNORMALITY NOW EVIDENT IN ANTEROLATERAL LEADS Confirmed by CIRO ISIDRO, JAVIER ([id number]) on 08/13/2017 4:30:47 PM Referred By: Confirmed By:JAIVER TANNER MD
--- NOTE | 2017-08-13 16:38 | PN ---
Progress Note (short form) - Note Progress Note: cc Abnormal movements on left upper extremity HPI 37 year old female history of Lupus ( 2003), she has right partial nephrectomy . 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 She has been ahving abnormal jerky Motion. Patient has been started on klonapin and it is helping her but effect is wearing off. She do not get these episode during sleep. Patient denies any stress, She denies any alcohol abuse. She has not been given any new medication recently. She denies any difficulty talking or, weakness or LOC. She also do complain of both feet numbness upto knee and lower part of thigh. She denies any history of DM or alcohol abuse. She continue to have abnormal movement, and waiting to have mri of L and T spine. Neurological Examination Alert able to follow command, There is occasional neck movement ( circumduction) and atpyical left shoulder movmeent were seen no motor weakness was identified CN , eomi, pupil reactive, no face asymmetry sensation - diminished to pin prick below lower part of thigh reflex are grade 1 generalized MRI of brain is normal, eeg i spending ( She was going to have eeg than she had attack of abnormal movement and could not go for eeg) Assessment- 1. abnormal head and shoulder movement ? Conversion reaction, Psych consult appreciated, concur with clonazepam. continue klonapin 2. lower extremity loss of sensation ? suspect peripheral neuropathy - reflex are diminished but not absent, work up has been negative . Patient is waiting for mri of T/S spine Once mri of T/S spine is done, she can be discharged, I would arrnage her to see movement disorder at [facility] and she would need emg and 48 hour eeg Thanking you so much Rayshawn Capps MD
--- NOTE | 2017-08-13 16:41 | PN ---
Teaching Attending Note Name of Resident: Becky Osei ATTENDING PHYSICIAN STATEMENT I saw and evaluated the patient. I reviewed the resident's note and discussed the case with the resident. I agree with the resident's findings and plan as documented. SUBJECTIVE: Patient continues to have episodes of jerking movements of her body. Episodes noted to occur only while awake, however she says last night she was awakened from sleep by one. OBJECTIVE: Vital Signs Period Temp Pulse Resp BP Sys/Cardozo Pulse Ox Last 24 Hr 98.2 F-98.9 F 79-109 20-20 109-124/60-86 100-100 HEART: S1S2, RRR LUNGS: Clear ABDOMEN: Soft, non-tender, non-distended, normal BS EXTREMITIES: No edema Laboratory Results - last 24 hr 08/11/17 08/13/17 08/13/17 06:30 06:10 06:10 WBC 4.8 RBC 3.68 Hgb 11.5 Hct 37.4 34.0 MCV 92.5 MCH 31.2 MCHC 33.7 RDW 12.4 Plt Count 181 MPV 8.7 Neutrophils % 63.0 Lymphocytes % 28.7 Monocytes % 7.4 Eosinophils % 0.1 D Basophils % 0.8 Nucleated RBC % 0 Sodium 142 Potassium 3.9 Chloride 112 H Carbon Dioxide 24 Anion Gap 6 L BUN 10 Creatinine 0.8 Random Glucose 87 Calcium 8.0 L Total Protein (PEP) 6.2 Albumin (PEP) 3.9 Globulin 2.3 Albumin/Globulin Ratio 1.7 Beta Globulins 0.8 Folate 1198 Folate Hemolysate 448.1 BELL M-Ramirez Not observed Current Medications Generic Name Dose Route Start Last Admin Trade Name Freq PRN Reason Stop Dose Admin Acetaminophen 650 mg 08/12/17 18:17 08/13/17 12:18 Tylenol - PO 650 mg Q6H PRN Administration PAIN LEVEL 1-5 Clonazepam 1 mg 08/13/17 22:00 Klonopin - PO BID LUCILA Hydroxychloroquine Sulfate 200 mg 08/10/17 22:00 08/13/17 10:01 Plaquenil - PO 200 mg BID LUCILA Administration Sodium Chloride 1,000 mls @ 125 mls/hr 08/10/17 09:45 08/13/17 10:01 Normal Saline - IV 125 mls/hr ASDIR LUCILA Administration ASSESSMENT AND PLAN: This is a 37 year old woman with a history of SLE, renal cell carcinoma, partial right nephrectomy who presented to the ED with twitching of her body. 1. Twitching/jerking movements of head, neck, left shoulder with possible peripheral neuropathy - Neurology input appreciated - Seizure vs dystonic reaction vs conversion disorder - Has diminished pin prick sensation below lower thigh - Continue Klonopin - MRI of brain is normal - EEG normal - ESR and C-RP normal, RPR negative, HIV negative, TSH normal, B12 normal - HbA1c 5.2 - Folate high (22, normal 3.1-17.5) - SPEP negative - Lyme pending - MRI of T-spine and L-spine ordered - Outpatient EMG 2. SLE - Continue Plaquenil 3. History of renal cell carcinoma, partial right nephrectomy 4. If MRI of T-spine and L-spine unremarkable, can be discharged home with outpatient movement disorder evaluation, EMG, 48 hr EEG
--- NOTE | 2017-08-13 16:54 | PN ---
Physical Exam: SUBJECTIVE: Patient seen and examined at bedside. Overnight, pt with seizure like activity and episodes of emesis a/w tachycardia. Today, pt with repeated abnormal movements before sent to MRI. Tests postponed to evening. Pt states that she "cannot move or she will have an episode." Seen laying on abdomen. Denies MCNAMARA, fever, chills, SOB, or changes in urinary or bowel function. OBJECTIVE: Vital Signs Period Temp Pulse Resp BP Sys/Cardozo Pulse Ox Last 24 Hr 98.2 F-98.9 F 79-109 20-20 109-124/60-86 100-100 GENERAL: The patient is lying in bed. awake, alert, and fully oriented, + abnormal myoclonic movements HEAD: Normal with no signs of trauma. EYES: PERRL, extraocular movements intact, sclera anicteric, conjunctiva clear. ENT: Ears normal, nares patent, oropharynx clear without exudates, moist mucous membranes. NECK: Trachea midline, supple. LUNGS: Breath sounds equal, clear to auscultation bilaterally, no wheezes, no crackles, no accessory muscle use. HEART: Regular rate and rhythm, S1, S2 without murmur, rub or gallop. ABDOMEN: Soft, nontender, nondistended, normoactive bowel sounds, no guarding, no rebound EXTREMITIES: 2+ dp, pt pulses, warm, well-perfused, no edema. NEUROLOGICAL: Cranial nerves II through XII grossly intact. Did not permit full exam today. States she will have an episode if she moves PSYCH: +anxious SKIN: Warm, dry, normal turgor Laboratory Results - last 24 hr 08/11/17 08/13/17 08/13/17 06:30 06:10 06:10 WBC 4.8 RBC 3.68 Hgb 11.5 Hct 37.4 34.0 MCV 92.5 MCH 31.2 MCHC 33.7 RDW 12.4 Plt Count 181 MPV 8.7 Neutrophils % 63.0 Lymphocytes % 28.7 Monocytes % 7.4 Eosinophils % 0.1 D Basophils % 0.8 Nucleated RBC % 0 Sodium 142 Potassium 3.9 Chloride 112 H Carbon Dioxide 24 Anion Gap 6 L BUN 10 Creatinine 0.8 Random Glucose 87 Calcium 8.0 L Total Protein (PEP) 6.2 Albumin (PEP) 3.9 Globulin 2.3 Albumin/Globulin Ratio 1.7 Beta Globulins 0.8 Folate 1198 Folate Hemolysate 448.1 BELL M-Ramirez Not observed Active Medications Generic Name Dose Route Start Last Admin Trade Name Freq PRN Reason Stop Dose Admin Acetaminophen 650 mg 08/12/17 18:17 08/13/17 12:18 Tylenol - PO 650 mg Q6H PRN Administration PAIN LEVEL 1-5 Clonazepam 1 mg 08/13/17 22:00 Klonopin - PO BID LUCILA Hydroxychloroquine Sulfate 200 mg 08/10/17 22:00 08/13/17 10:01 Plaquenil - PO 200 mg BID LUCILA Administration Sodium Chloride 1,000 mls @ 125 mls/hr 08/10/17 09:45 08/13/17 10:01 Normal Saline - IV 125 mls/hr ASDIR LUCILA Administration EKG -NSR, rate 80bpm, GA 164ms, QRS 84ms, Qtc 477ms IMAGING -08/10/17: Head CT non-con: no acute intracranial hemorrhage, mass effects, or hydrocephalus -08/10/17: CXR: no acute changes -08/10/17: Lumbar/thoracic spine CT: mild loss of disc height posteriorly at L3- L4, L4-L5, L5-S1. No significant canal or neural foraminal stenosis in the thoracic and lumbar spines. There is shallow bulging of annulus at L3-L4, L4- L5. There is mild facet arthropathy at L5-S1, and L4-L5 right more than left. There are incompletely imaged postsurgical changes in the lower pole of the R kidney. -08/11: Brain MRI:no acute pathology -Lumbar spine MRI: not yet completed -Thoracic spine MRI: not yet completed -08/11/17: Head CT non-con s/p fall/seizure: unremarkable, without acute findings. No hemorrhage Microbiology 08/10/17 09:50 Urine - Urine Clean Catch Urine Culture - Final NO GROWTH OBTAINED ASSESSMENT/PLAN: 37 y/o F with PMH lupus (dx 2007; sees Dr. Medina. Has been on hydroxychloroquine 200 mg PO BID for 10 yrs, stopped 1 month ago d/t nausea, emesis), renal cancer s/p R partial nephrectomy (2016. never needed chemo or rad ), who presents to the ED c/o diffuse body twitching over the past two days. #Conversion disorder -TSH, B12, Folate - reversible causes - WNL -MRI w/ gadolinium - no acute path -RPR (-) -HIV (-) -protein electrophoresis WNL (-) -F/u ESR, CRP 0.3 (WNL) -serum ceruloplasmin, antiphospholipid Abs - outpatient tests only -lyme titers -pending -(-) test -Neuro consult- Dr. Capps; will f/u with outpt movement specialist Idris, EMG, EEG specialist -Psych consult- Dr. Bell; continue current management -Continue Klonopin 0.5mg PO TID; has improved sx with first dose #?seizure like activity likely 2/2 conversion disorder -pt received Keppra 1000mg IVPB x 1, 500mg IVPB x1 -without tonic-clonic movements since -telemetry monitoring #Spinal tenderness -F/u MRI T, L spine to r/o compression - to be done this PM #Lupus -Continue hydroxychloroquine 200mg PO BID -may explain "chest pressure" ; initial trop (-) #F/E/N -no IVF indicated at this time; renal fnc WNL -continue to follow lytes -regular diet #PPX early ambulation, SCD's #Dispo tele monitoring Visit type - Emergency Visit Emergency Visit: No - New Patient This patient is new to me today: No - Critical Care Critical Care patient: No
[2017-08-14] MEDS: ACETAMINOPHEN 325 MG TABLET (FP) PO PRN ×2 (07:56→13:52)
[2017-08-14] MEDS: HYDROXYCHLOROQUINE SO4 200 MG TABLET (FP) PO SCH (10:23)
[2017-08-14] MEDS: SODIUM CHLORIDE 1,000 ML IV SCH (10:23)
[2017-08-14] MEDS: clonazePAM 0.5 MG TABLET PO SCH (10:23)
[2017-08-14 10:41] VITALS: BP 118/68; PULSE 74; TEMP 97.8
--- NOTE | 2017-08-14 13:07 | PN ---
Progress Note (short form) - Note Progress Note: c Abnormal movements on left upper extremity HPI 37 year old female history of Lupus ( 2003), she has right partial nephrectomy . 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 She has been ahving abnormal jerky Motion. Patient has been started on klonapin and it is helping her but effect is wearing off. She do not get these episode during sleep. MRI of T and L spine was unremarkable. Neurological Examination Alert able to follow command, There is occasional neck movement ( circumduction) and atpyical left shoulder movmeent were seen no motor weakness was identified CN , eomi, pupil reactive, no face asymmetry sensation - diminished to pin prick below lower part of thigh reflex are grade 1 generalized MRI of brain is normal, eeg is pending. MRI of T and and L spine is normal Assessment- 1. abnormal head and shoulder movement ? Conversion reaction, Psych consult appreciated, concur with clonazepam. continue klonapin Patient can be discharged after eeg and would follow up with me and Bushra haddad arrange for Movement disorder clininic at [facility] 2. lower extremity loss of sensation ? suspect peripheral neuropathy - reflex are diminished but not absent, work up has been negative Thanking you so much Rayshawn Capps MD
--- NOTE | 2017-08-14 17:15 | PN ---
Teaching Attending Note Name of Resident: Becky Osei ATTENDING PHYSICIAN STATEMENT I saw and evaluated the patient. I reviewed the resident's note and discussed the case with the resident. I agree with the resident's findings and plan as documented. SUBJECTIVE: No complaints. OBJECTIVE: Vital Signs Period Temp Pulse Resp BP Sys/Cardozo Pulse Ox Last 24 Hr 97.8 F-98.4 F 68-78 18-20 100-122/58-72 98-100 HEART: S1S2, RRR LUNGS: Clear ABDOMEN: Soft, non-tender, non-distended, normal BS EXTREMITIES: No edema Current Medications Generic Name Dose Route Start Last Admin Trade Name Freq PRN Reason Stop Dose Admin Acetaminophen 650 mg 08/12/17 18:17 08/14/17 13:52 Tylenol - PO 650 mg Q6H PRN Administration PAIN LEVEL 1-5 Clonazepam 1 mg 08/13/17 22:00 08/14/17 10:23 Klonopin - PO 1 mg BID LUCILA Administration Hydroxychloroquine Sulfate 200 mg 08/10/17 22:00 08/14/17 10:23 Plaquenil - PO 200 mg BID LUCILA Administration Sodium Chloride 1,000 mls @ 125 mls/hr 08/10/17 09:45 08/14/17 10:23 Normal Saline - IV 125 mls/hr ASDIR LUCILA Administration ASSESSMENT AND PLAN: This is a 37 year old woman with a history of SLE, renal cell carcinoma, partial right nephrectomy who presented to the ED with twitching of her body. 1. Twitching/jerking movements of head, neck, left shoulder with possible peripheral neuropathy - Neurology input appreciated - Seizure vs dystonic reaction vs conversion disorder - Has diminished pin prick sensation below lower thigh - Continue Klonopin - MRI of brain is normal - EEG normal - ESR and C-RP normal, RPR negative, HIV negative, TSH normal, B12 normal - HbA1c 5.2 - Folate high (22, normal 3.1-17.5) - SPEP negative - Lyme pending - MRI of T-spine and L-spine shows no evidence of myelitis, demyelination, leptomeningeal disease; shallow central disc protrusion at T7-T8; shallow bulging annulis L3-L4 through L5-S1 - Outpatient EMG, movement disorder evaluation, 48 hr EEG 2. SLE - Continue Plaquenil 3. History of renal cell carcinoma, partial right nephrectomy
--- NOTE | 2017-08-14 17:26 | DS ---
Physical Exam: SUBJECTIVE: Patient seen and examined at bedside. No acute events overnight. Today, pt without chorea like movements during afternoon. Looking forward to going home. Will follow up with neuro and movement disorder specialist at [facility]. Denies MCNAMARA, fever, chills, SOB, chest pain, or changes in urinary or bowel function. OBJECTIVE: Vital Signs Period Temp Pulse Resp BP Sys/Cardozo Pulse Ox Last 24 Hr 97.8 F-98.4 F 68-78 18-20 100-122/58-72 98-100 PHYSICAL EXAM GENERAL: The patient is lying in bed. awake, alert, and fully oriented. HEAD: Normal with no signs of trauma. EYES: PERRL, extraocular movements intact, sclera anicteric, conjunctiva clear. ENT: Ears normal, nares patent, oropharynx clear without exudates, moist mucous membranes. NECK: Trachea midline, supple. LUNGS: Breath sounds equal, clear to auscultation bilaterally, no wheezes, no crackles, no accessory muscle use. HEART: Regular rate and rhythm, S1, S2 without murmur, rub or gallop. ABDOMEN: Soft, nontender, nondistended, normoactive bowel sounds, no guarding, no rebound EXTREMITIES: 2+ dp, pt pulses, warm, well-perfused, no edema. NEUROLOGICAL: Cranial nerves II through XII grossly intact. PSYCH: +anxious SKIN: Warm, dry, normal turgor LABS Laboratory Tests 08/10/17 08/10/17 08/11/17 09:50 16:15 06:30 Creatine Kinase Troponin I < 0.02 Total Protein 8.0 Total Protein (PEP) 6.2 Albumin 4.6 Albumin (PEP) 3.9 Globulin 2.3 Albumin/Globulin Ratio 1.7 Beta Globulins 0.8 Vitamin B12 362 Folate 1198 Serum Folate 22 H Folate Hemolysate 448.1 TSH Opiates Screen Negative Methadone Screen Negative Barbiturate Screen Negative Phencyclidine Screen Negative Ur Amphetamines Screen Negative MDMA (Ecstasy) Screen Negative Benzodiazepines Screen Negative Cocaine Screen Negative U Marijuana (THC) Screen Negative BELL M-Ramirez Not observed RPR Titer 08/11/17 08/11/17 08/11/17 06:30 13:55 15:15 Folate Hemolysate TSH 0.77 Barbiturate Screen RPR Titer Lyme IgM Quantitation Pending HIV 1&2 Antibody Screen Negative HIV P24 Antigen Negative 08/11/17 08/12/17 22:19 08:12 Creatine Kinase 523 H Phencyclidine Screen RPR Titer Nonreactive Lyme IgM Quantitation EKG -NSR, rate 80bpm, WI 164ms, QRS 84ms, Qtc 477ms IMAGING -08/10/17: Head CT non-con: no acute intracranial hemorrhage, mass effects, or hydrocephalus -08/10/17: CXR: no acute changes -08/10/17: Lumbar/thoracic spine CT: mild loss of disc height posteriorly at L3- L4, L4-L5, L5-S1. No significant canal or neural foraminal stenosis in the thoracic and lumbar spines. There is shallow bulging of annulus at L3-L4, L4- L5. There is mild facet arthropathy at L5-S1, and L4-L5 right more than left. There are incompletely imaged postsurgical changes in the lower pole of the R kidney. -08/11: Brain MRI:no acute pathology -Lumbar spine MRI: shallow bulging annulus L3-L4 -Thoracic spine MRI: central disc protrusion T7-T8 -08/11/17: Head CT non-con s/p fall/seizure: unremarkable, without acute findings. No hemorrhage Microbiology 08/10/17 09:50 Urine - Urine Clean Catch Urine Culture - Final NO GROWTH OBTAINED HOSPITAL COURSE: Date of Admission:08/12/17 Date of Discharge: 08/14/17 Admit diagnosis: myoclonic movements/chorea 37 y/o F with PMH lupus (dx 2007; sees Dr. Medina. Has been on hydroxychloroquine 200 mg PO BID for 10 yrs, stopped 1 month ago d/t nausea, emesis), renal cancer s/p R partial nephrectomy (2016. never needed chemo or rad ), who presents to the ED c/o diffuse body twitching over two days. As per pt, two days ago, she suddenly noticed twitching and spasms in her chin. Episodes would occur over 5-10 seconds and subside before reoccurring. Shortly after, it continued to include her upper extremities, L shoulder, neck, and lower extremities. Her episodes are not a/w numbness. During this time, she also endorses a sensation of "water rushing down her back" and diffuse chest pressure. Her sx are alleviated by sleep and ativan. She denies recent physical exertion, MCNAMARA, visual or gait changes, tongue biting, bowel or bladder incontinence, fever, chills, SOB, abdominal pain or changes in urinary or bowel function. Admit diagnosis myoclonic movements/chorea. While pt was in hospital, she had a though work-up to determine the cause of her chorea. She underwent CBC, CMP, RPR, drug screen, TSH, folate, B12, which were all within normal limits. Head CT non-con, Brain MRI without evidence of acute pathology. She also underwent CT/MRI of lumbar and thoracic spine, which only showed bulging annulus L3-L4, and central disc protrusion T7-T8. Pt was seen by neuro and psychiatry, and her episodes of chorea improved once she was started on Klonopin 0.5mg PO TID. She is being discharged on 1mg BID and will follow with a movement specialist at [facility], as well as neurologist, Dr. Avendano. Minutes to complete discharge: 50 Discharge Summary Reason For Visit: TREMOR Current Active Problems Tremors of nervous system (Acute) Condition: Stable - Instructions Diet, Activity, Other Instructions: You were in the hospital due to muscle twitching and movement. While you were here, you had blood counts done, as well as labs for infectious etiologies. So far these labs have been negative. You have also had an MRI done of your brain, as well as a head CT scan- these were normal. We will refer you to [facility] to see a movement specialist doctor named Dr. Dickens. A referral will be faxed to [phone]. You can call the number: [phone] to make an appointment. We would also like you to follow up with Dr. Avendano, a neurologist this week. He will have access to your records, and will also be able to follow your Lyme disease testing which is still pending. You are being continued on the medication Klonopin 1 mg by mouth two times a day. This is being sent to your pharmacy. You can continue your other medications. If you develop chest pain, or shortness of breath, please go to the hospital. We hope you feel better soon. Referrals: Chrissie ISIDRO, Nick [Other] - 1 Week Ravi Ellison MD [Primary Care Provider] - 1 Week Rahul Avendano DO [Staff Physician] - 1 Week Disposition: HOME - Home Medications Comprehensive Discharge Medication List: Ambulatory Orders Hydroxychloroquine Sulfate [Plaquenil] 200 mg PO BID 10/03/15 Clonazepam [Klonopin] 1 mg PO BID #14 tablet MDD 2 mg 08/14/17 This patient is new to me today: No Emergency Visit: No Critical Care patient: No - Discharge Referral Referred to [facility] Med [facility] No
== END 2017-08-14 17:37 | disposition home or self-care (01) | DRG 58 ==
LOC: JER 08:32 → JERBED 13:14 → J8W 08-11 02:57 → JERBED 08-12 03:14 → J8W 08-12 03:15 → J4W 08-12 06:54 → JSAMEDAYSX 08-12 13:22 → J4W 08-12 13:23 → OBSVTOIN 08-12 13:39
PROVIDERS: ADMIT Internal Medicine; ATTEND Internal Medicine
DX: G25.2 Other specified forms of tremor (principal); G62.9 Polyneuropathy, unspecified; L93.0 Discoid lupus erythematosus; R56.9 Unspecified convulsions; M12.88 Other specific arthropathies, not elsewhere classified, other specified site; F44.9 Dissociative and conversion disorder, unspecified; Z98.51 Tubal ligation status; Z87.891 Personal history of nicotine dependence; Z85.528 Personal history of other malignant neoplasm of kidney
CPT/HCPCS: 36415; 70450-TC; 70553-TC; 71045-TC-FY; 72128-TC; 72131-TC; 72157-TC; 72158-TC; 80048; 80053; 80307; 81003; 82550; 82553; 82607; 82746; 82747; 83036; 83605; 83735; 84100; 84155; 84165; 84443; 84484; 84703; 85014; 85025; 85610; 85651; 85730; 86140; 86593; 87086; 87389; 93005; 93010; 95816; 99285-25; G0378; J0131; J7030

== ENCOUNTER 2019-04-15 07:09 | Emergency (ER) | payer OTHER ==
[2019-04-15 07:16] VITALS: BMI 25.8
--- NOTE | 2019-04-15 07:38 | PDOC ---
History of Present Illness - General History Source: Patient Exam Limitations: Clinical Condition - History of Present Illness Initial Comments: 04/15/19 07:34 Patient with past medical history of lupus, renal cancer status post partial nephrectomy and salpingectomy presented with complaint of 3-day history of chest discomfort which she was described as squeezing sensation in the chest wall which has been intermittent for 3 days. Patient reported painful when she pressed on the left side of her chest wall. Denies shortness of breath, palpitation, dizziness, nausea, vomiting, sweats, headache, abdominal pains. Patient reports symptoms does worsen when she takes deep breath and improves at rest. Patient did not take anything for symptoms. He denies any family history of cardiomyopathy or sudden . Denies any other symptoms Is this a multiple visit Asthma Patient?: No Timing/Duration: other (3 days) <Mitchel Lindo - Last Filed: 04/15/19 09:10> <Rafa Jaime - Last Filed: 04/15/19 16:17> - General Chief Complaint: Chest Pain Stated Complaint: CHEST PRESSURE Time Seen by Provider: 04/15/19 07:17 Past History - Past Medical History Anemia: No Asthma: No Cancer: Yes (PARTIAL Right nephractomy) Cardiac Disorders: No CVA: No COPD: No CHF: No Dementia: No Diabetes: No GI Disorders: No Disorders: No HTN: No Hypercholesterolemia: No Liver Disease: No Seizures: No Thyroid Disease: No - Surgical History Abdominal Surgery: Yes (FALLOPIAN TUBES REMOVal) Appendectomy: No Cardiac Surgery: No Cholecystectomy: No GI Surgery: Yes (PARTIAL RIGHT NEPHRECTOMY) Lung Surgery: No Neurologic Surgery: No Orthopedic Surgery: No - Immunization History Immunization Up to Date: Yes - Psycho Social/Smoking Cessation Hx Smoking History: Former smoker Have you smoked in the past 12 months: No Number of Cigarettes Smoked Daily: 2 If you are a former smoker, when did you quit?: 3 MO AGO Information on smoking cessation initiated: No 'Breaking Loose' booklet given: 04/26/14 Hx Alcohol Use: No Drug/Substance Use Hx: No Substance Use Type: None Hx Substance Use Treatment: No <Mitchel Lindo - Last Filed: 04/15/19 09:10> <Rafa Jaime - Last Filed: 04/15/19 16:17> - Past Medical History Allergies/Adverse Reactions: Allergies Allergy/AdvReac Type Severity Reaction Status Date / Time oxycodone HCl [From Percocet] Allergy Itching Verified 04/15/19 07:12 Home Medications: Ambulatory Orders Methylprednisolone [Medrol Dose Pérez] 4 mg PO ASDIR #21 tablet 04/15/19 Review of Systems - Review of Systems Able to Perform ROS?: Yes Is the patient limited Nepali proficient: No Constitutional: No: Chills, Fever, Malaise, Weakness HEENTM: No: Symptoms Reported, See HPI, Eye Pain, Blurred Vision, Tearing, Recent change in vision, Double Vision, Cataracts, Ear Pain, Ocular Prothesis, Ear Discharge, Nose Pain, Nose Congestion, Tinnitus, Nose Bleeding, Hearing Loss , Throat Pain, Throat Swelling, Mouth Pain, Dental Problems, Difficulty Swallowing, Mouth Swelling, Other Respiratory: No: Symptoms reported, See HPI, Cough, Orthopnea, Shortness of Breath, SOB with Exertion, SOB at Rest, Stridor, Wheezing, Productive cough, Hemoptysis, Other Cardiac (ROS): Yes: Symptoms Reported, See HPI, Chest Pain (chest pressure). No : Edema, Irregular Heart Rate, Lightheadedness, Palpitations, Syncope, Chest Tightness, Other ABD/GI: No: Symptoms Reported, See HPI, Abdominal Distended, Abd. Pain w/ defecation, Blood Streaked Bowels, Constipated, Diarrhea, Difficulty Swallowing , Nausea, Poor Appetite, Poor Fluid Intake, Rectal Bleeding, Vomiting, Indigestion, Abdominal cramping, Tarry Stools, Other Musculoskeletal: No: Symptoms Reported Integumentary: No: Symptoms Reported Neurological: No: Symptoms reported, Headache, Numbness, Paresthesia, Pre- Existing Deficit, Tingling, Weakness, Ataxia, Dizziness All Other Systems: Reviewed and Negative <GuichoMitchel Allison - Last Filed: 04/15/19 09:10> *Physical Exam - Vital Signs Last Vital Signs Temp Pulse Resp BP Pulse Ox 98.3 F 100 H 18 126/88 100 04/15/19 07:12 04/15/19 07:12 04/15/19 07:12 04/15/19 07:12 04/15/19 07:12 - Physical Exam 04/15/19 07:37 GENERAL: Well developed, well nourished. Awake and alert. No acute distress. HEENT: Normocephalic, atraumatic. PERRLA, EOMI. No conjunctival pallor. Sclera are non-icteric. Moist mucous membranes. Oropharynx is clear. NECK: Supple. Full ROM. CARDIOVASCULAR: Regular rate and rhythm. No murmurs, rubs, or gallops. Distal pulses are 2+ and symmetric. PULMONARY: No evidence of respiratory distress. Lungs clear to auscultation bilaterally. No wheezing, rales or rhonchi. ABDOMINAL: Soft. Non-tender. Non-distended. No rebound or guarding. No organomegaly. Normoactive bowel sounds. MUSCULOSKELETAL Normal range of motion at all joints. Mild reproducible tenderness to chest wall on the left 2nd-3rd intercostal space SKIN: Warm and dry. Normal capillary refill. No rashes. No jaundice. NEUROLOGICAL: Alert, awake, appropriate. Gait is normal without ataxia. PSYCHIATRIC: Cooperative. Good eye contact. Appropriate mood General Appearance: Yes: Nourished, Appropriately Dressed. No: Apparent Distress <Mitchel Lindo - Last Filed: 04/15/19 09:10> - Vital Signs Last Vital Signs Temp Pulse Resp BP Pulse Ox 99 F 86 18 110/77 100 04/15/19 09:05 04/15/19 09:05 04/15/19 09:05 04/15/19 09:05 04/15/19 09:05 <Rafa Jaime - Last Filed: 04/15/19 16:17> Heart Score/ECG Review - History History: Slightly suspicious - Electrocardiogram EKG: Normal - Age Age: </= 45 - Risk Factors Based on the list above the patient has:: 1-2 risk factors - ECG Intrepretation Rhythm: Regular Rhythm - P and GA Delta Wave(s) Present: No WPW: No - ECG Impressions Normal ECG: Yes <Mitchel Lindo - Last Filed: 04/15/19 09:10> ED Treatment Course - LABORATORY CBC & Chemistry Diagram: 04/15/19 08:00 04/15/19 08:00 - RADIOLOGY Radiology Studies Ordered: Category Date Time Status CHEST PA & LAT [RAD] Stat Radiology 04/15/19 07:22 Ordered <Mitchel Lindo - Last Filed: 04/15/19 09:10> - LABORATORY CBC & Chemistry Diagram: 04/15/19 08:00 04/15/19 08:00 - ADDITIONAL ORDERS Additional order review: Laboratory Results 04/15/19 04/15/19 08:00 08:00 D-Dimer < 215 Sodium 141 Potassium 4.5 Chloride 112 H Carbon Dioxide 25 Anion Gap 4 L BUN 10.0 Creatinine 0.9 Est GFR (CKD-EPI)AfAm 94.01 Est GFR (CKD-EPI)NonAf 81.11 Random Glucose 92 Calcium 9.2 Total Bilirubin 0.6 AST 14 L ALT 25 Alkaline Phosphatase 54 Creatine Kinase 246 H Creatine Kinase Index No Result Required. CK-MB (CK-2) < 1.0 Troponin I < 0.02 Total Protein 7.2 Albumin 3.9 04/15/19 08:00 RBC 4.22 MCV 92.7 MCHC 33.1 RDW 12.7 MPV 9.3 Neutrophils % 59.5 Lymphocytes % 30.3 Monocytes % 8.0 Eosinophils % 0.8 D Basophils % 1.4 - Medications Given in the ED: ED Medications Discontinued Medications Generic Name Dose Route Start Last Admin Trade Name Manolo PRN Reason Stop Dose Admin Aspirin 162 mg 04/15/19 08:05 04/15/19 08:08 Asa - PO 04/15/19 08:06 162 mg ONCE ONE Administration <Rafa Jaime - Last Filed: 04/15/19 16:17> Medical Decision Making - Medical Decision Making 04/15/19 07:36 Patient with past medical history of lupus, renal cancer status post partial nephrectomy and salpingectomy presented with complaint of 3-day history of chest discomfort which she was described as squeezing sensation in the chest wall which has been intermittent for 3 days. Patient reported painful when she pressed on the left side of her chest wall. Denies shortness of breath, palpitation, dizziness, nausea, vomiting, sweats, headache, abdominal pains. Patient reports symptoms does worsen when she takes deep breath and improves at rest. Patient did not take anything for symptoms. He denies any family history of cardiomyopathy or sudden . Denies any other symptoms Exam significant for mild reproducible tenderness left side of chest wall and third intercostal space otherwise unremarkable exam. Lungs clear to auscultation normal cardio exam. Patient in no acute distress. Symptoms likely costochondritis versus less likely cardiogenic pain. CBC, CMP and cardiac profile lab ordered. EKG shows normal sinus rhythm. Chest x-ray ordered to rule out acute cardiomyopathy. Treat based on lab and imaging results 04/15/19 09:05 CBC chemistry and cardiac lab unremarkable. D-dimer negative. Checks x-ray shows no acute pathology. Patient report improvement of pain with aspirin. Patient symptoms likely costochondritis and stable for discharge on NSAIDs for pain with strict follow-up. <GuichoMitchel Keegan - Last Filed: 04/15/19 09:10> - Medical Decision Making 04/15/19 16:17 I reviewed the case of the mid-level practitioner and was available for consultation while in the emergency department <Rafa Jaime - Last Filed: 04/15/19 16:17> Discharge - Discharge Information Problems reviewed: Yes - Admission No <Mitchel Lindo - Last Filed: 04/15/19 09:10> <Rafa Jaime - Last Filed: 04/15/19 16:17> - Discharge Information Clinical Impression/Diagnosis: Costochondritis, acute Condition: Improved Disposition: HOME - Additional Discharge Information Prescriptions: Methylprednisolone [Medrol Dose Pérez] 4 mg PO ASDIR #21 tablet - Follow up/Referral Referrals: Ravi Ellison MD [Primary Care Provider] - - Patient Discharge Instructions Patient Printed Discharge Instructions: DI for Atypical Chest Pain, DI for Costochondritis Additional Instructions: Your labs is normal. Your chest x-ray is normal as well. symptoms likely caused by muscle wall pain. Take prescribed medication as prescribed for pain. Come back to emergency room if worsening chest pain, shortness of breath, palpitation, dizziness otherwise follow-up with your primary care - Post Discharge Activity
[2019-04-15] MEDS ORDERED: ASPIRIN 81 MG CHEWABLE TABLETS PO ONE (08:05)
[2019-04-15] MEDS ORDERED: ASPIRIN COATED 81 MG TABLET.EC ONE (08:19)
[2019-04-15 08:27] LABS: BASO % 1.4 % (0-2.0); EOS % 0.8 % (0-4.5); HEMATOCRIT 39.1 % (32.4-45.2); HEMOGLOBIN 12.9 GM/dL (10.7-15.3); LYMPH % 30.3 % (8-40); MCH 30.7 pg (25.7-33.7); MCHC 33.1 g/dl (32.0-36.0); MEAN CELL VOLUME 92.7 fl (80-96); MEAN PLT VOLUME 9.3 fl (7.5-11.1); NEUT % 59.5 % (42.8-82.8); PLATELET COUNT 202 K/MM3 (134-434); RBC 4.22 M/mm3 (3.60-5.2); RDW 12.7 % (11.6-15.6); WHITE BLOOD COUNT 3.2 K/mm3 (4.0-10.0)
[2019-04-15 08:57] LABS: ALBUMIN 3.9 g/dl (3.4-5.0); ALK PHOS 54 U/L (45-117); ANION GAP 4 MMOL/L (8-16); BILIRUBIN,TOTAL 0.6 mg/dL (0.2-1); CALCIUM 9.2 mg/dL (8.5-10.1); CHLORIDE 112 mmol/L (98-107); CO2 25 mmol/L (21-32); CREATININE 0.9 mg/dL (0.55-1.3); GLUCOSE,RANDOM 92 mg/dL (74-106); POTASSIUM 4.5 mmol/L (3.5-5.1); SGOT/AST 14 U/L (15-37); SGPT/ALT 25 U/L (13-61); SODIUM 141 mmol/L (136-145); TOT PROT 7.2 g/dl (6.4-8.2)
[2019-04-15 09:18] VITALS: BP 110/77; PULSE 86; TEMP 99
--- NOTE | 2019-04-15 13:50 | EKG ---
Test Reason : Blood Pressure : / mmHG Vent. Rate : 082 BPM Atrial Rate : 082 BPM P-R Int : 162 ms QRS Dur : 078 ms QT Int : 376 ms P-R-T Axes : 073 057 036 degrees QTc Int : 439 ms NORMAL SINUS RHYTHM NONSPECIFIC ST ABNORMALITY Confirmed by ANABELLA MOREIRA MD ([id number]) on 04/15/2019 1:50:04 PM Referred By: Confirmed By:ANABELLA MOREIRA MD
== END 2019-04-15 09:05 | disposition home or self-care (01) ==
LOC: JER 07:09
DX: M94.0 Chondrocostal junction syndrome [Tietze] (principal); Z88.6 Allergy status to analgesic agent; M32.9 Systemic lupus erythematosus, unspecified
CPT/HCPCS: 36415; 71046-TC-FY; 80053; 82550; 82553; 84484; 85025; 85379; 93005; 93010; 99284-25

== ENCOUNTER 2019-11-03 10:29 | Emergency (ER) | payer OTHER ==
[2019-11-03 10:37] VITALS: TEMP 98.5; BMI 24.3
--- NOTE | 2019-11-03 10:38 | PDOC ---
History of Present Illness - General Chief Complaint: Seizure Stated Complaint: SEIZURES Time Seen by Provider: 11/03/19 10:33 History Source: Family, Co-worker Exam Limitations: Clinical Condition - History of Present Illness Initial Comments: 11/03/19 10:37 Usha Parra is a 39G with PMH umedicated Lupus, renal cancer s/p R kidney resection, and unmedicated epilepsy presenting with witnessed seizure and fall. Patient is post-ictal and unable to give her PMH. 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 Was in this state for 5 minutes before stopping movement, then had second seizure activity after before EMS called. Spilled salad dressing on pants, but no loss of bowel/bladder continence. Per supervisor natural [employer] plant, has never had any seizures at work before. Has been told that patient has Lupus and has had a kidney resection. 11/03/19 11:30 at bedside, reports that patient has not had seizure in the past year, seen by [facility] neurologist, has gotten EEG and MRI that showed some sort of abnormality, second MRI negative, was not prescribed anti-epileptics. Was evaluated for movement disorder/seizures by Dr. Avendano two years ago. Unclear if patient taking other drugs or substances. Does not take medications for Lupus, took Plaquenil but had bad side effects. Past History - Medical History Allergies/Adverse Reactions: Allergies Allergy/AdvReac Type Severity Reaction Status Date / Time oxycodone HCl [From Percocet] Allergy Itching Verified 11/03/19 10:31 Home Medications: Ambulatory Orders Methylprednisolone [Medrol Dose Pérez] 4 mg PO ASDIR #21 tablet 04/15/19 Anemia: No Asthma: No Cancer: Yes (PARTIAL Right nephractomy) Cardiac Disorders: No CVA: No COPD: No CHF: No Dementia: No Diabetes: No GI Disorders: No Disorders: No HTN: No Hypercholesterolemia: No Liver Disease: No Seizures: No Thyroid Disease: No - Surgical History Abdominal Surgery: Yes (FALLOPIAN TUBES REMOVal) Appendectomy: No Cardiac Surgery: No Cholecystectomy: No GI Surgery: Yes (PARTIAL RIGHT NEPHRECTOMY) Lung Surgery: No Neurologic Surgery: No Orthopedic Surgery: No - Reproductive History Is Patient Now?: No - Immunization History Immunization Up to Date: Yes - Psycho-Social/Smoking History Smoking History: Unknown if ever smoked Have you smoked in the past 12 months: No Number of Cigarettes Smoked Daily: 2 If you are a former smoker, when did you quit?: 3 MO AGO 'Breaking Loose' booklet given: 04/26/14 - Substance Abuse Hx (Audit-C & DAST Scrn) How often the patient has a drink containing alcohol: Never Score: In Men: 4 or > Positive; In Women: 3 or > Positive: 0 Screen Result (Pos requires Nsg. Audit-10AR): Negative In the last yr the pt used illegal drug/Rx for NonMed reason: No Score: Yes response is considered Positive: 0 Screen Result (Positive result requires Nsg. DAST-10): Negative Review of Systems - Review of Systems Able to Perform ROS?: No (post-ictal) *Physical Exam - Vital Signs Last Vital Signs Temp Pulse Resp BP Pulse Ox 98.5 F 120 H 20 127/90 99 11/03/19 10:32 11/03/19 10:32 11/03/19 10:32 11/03/19 10:32 11/03/19 10:32 - Physical Exam General Appearance: Yes: Nourished, Appropriately Dressed, Moderate Distress, Other (patient rapidly breathing on initial evaluation but not speaking, stains to pants but clean underwear) HEENT: positive: EOMI, Normal Voice, Symmetrical, Pharynx Normal, Hearing Grossly Normal. negative: PERRY, Scleral Icterus (R), Scleral Icterus (L), Ph aryngeal Erythema, Tonsillar Exudate, Tonsillar Erythema Neck: positive: Trachea midline, Normal Thyroid, Supple. negative: Tender, Lymphadenopathy (R), Lymphadenopathy (L) Respiratory/Chest: positive: Lungs Clear, Normal Breath Sounds, Rapid RR. n egative: Chest Tender, Respiratory Distress, Accessory Muscle Use, Labored Respiration, Crackles, Rales, Rhonchi, Stridor, Wheezing Cardiovascular: positive: Regular Rhythm, Tachycardia Gastrointestinal/Abdominal: positive: Normal Bowel Sounds, Flat, Soft. negative: Tender, Organomegaly, Guarding, Rebound Musculoskeletal: positive: Normal Inspection, Decreased Range of Motion. negative: CVA Tenderness, Vertebral Tenderness Extremity: positive: Normal Capillary Refill, Normal Inspection, Normal Range of Motion, Pelvis Stable. negative: Tender, Pedal Edema, Swelling, Calf Tenderness Integumentary: positive: Normal Color, Dry, Warm Neurologic: positive: Respond to painful stimul. negative: Fully Oriented, Alert (not following commands), Normal Mood/Affect, Normal Response ED Treatment Course - LABORATORY CBC & Chemistry Diagram: 11/03/19 10:28 11/03/19 10:28 Medical Decision Making - Medical Decision Making 11/03/19 11:11 Patient presents with seizure activity at work with known history of ? seizure vs. pseudoseizure and poor sleep/work stress, as well as R nephrectomy for renal CA. Described as tonic/clonic of arms and head but not legs, unresponsive, no bowel/bladder incontinence or tongue biting. Unclear if patient takes medications at this time. Has history of renal CA s/p resection, possible brain metastasis. Post-ictal at this time, not responsive to voice. Most likely seizures given patient not orientable during events and unable to stop hand from falling on face. Ordered CMP/CBC/CP/Coags/Mag /Phos/TSH/UA/UC/UTOX/carbamazepine/ASA/APAP/ETOH/serum preg/lactate/VBG CT head and c-spine ordered for eval head injury vs. ICH vs. met 11/03/19 12:13 Patient had 2x seizures in CT scan of the same quality of upper extremity and head movement, witnessed by attending and at bedside who reports that is similar to priors. Given 2x Ativan at CT. Giving Keppra load for seizure activity. ECG shows sinus tachycardia with HR 124 with QTc 609, no AYLIN/D or TWI but has frequent PVC. CXR unremarkable. Labs notable for: - CBC WNL - Coags WNL - K 2.9, aggressively repleting with K-riders and K-dur PO - ETOH negative - UA WNL - UTOX negative - TSH WNL - CK 302 - Phos 2.0 - lactate 6.1, likely real seizure CT head negative for acute pathology, no obvious lesion or mass. CT c-spine negative for acute pathology. 11/03/19 13:38 Patient refusing PO potassium, has had complication where ENT had to remove pill, will stick to K-riders. Call placed to Dr. Avendano, last neurologist patient has seen for seizure/movement disorder, pending callback. Discussed case with admitting resident at bedside, accepts admit to TELE for seizure and hypokalemia. 11/03/19 13:51 Patient had another seizure in ED, given 2mg Ativan. Already received Keppra load, still seizing. This time patient has tonic flexion of upper and lip smacking, unresponsive, lasted ~5 minutes. Unclear if pseudoseizures given difference in seizure activity, but lactic acid elevated. 11/03/19 14:[address] Marvin stone sandblaster for Dr. Avendano, recommends 20 mg/kg fosphenytoin IV and 100mg Dilantin TID for prevention of status epilepticus. Consider intubation if needed and ICU admit, otherwise AM MRI. 11/03/19 15:20 ICU consulted, patient had another seizure (#6 today) while ICU here to evaluate, given another 2mg Ativan and broke seizure. Called Dr. Marvin who recommends ICU admit and intubation. Patient having multiple seizures within 20 minutes of each other without return to baseline, calling [facility] to transfer to NSICU. 11/03/19 15:24 Patient having intense pruritis after fosphenytoin infusion, giving 125mg Solu- Medrol. 11/03/19 15:[address] Damico at [facility] neurology, sounds like pseudoseizure but needs EEG to confirm, otherwise treating acceptably for status epilepticus. Accepts for ED to ED transfer for EEG. No need for airway intervention given no desats and maintaining airway well. Discussed case with Dr. Latham with [facility] ED, will see patient in ED. 11/03/19 18:37 Patient had one more seizure, appears as patient tremoring in face and limbs without tonic/clonic activity. Given 2mg IV Ativan, O2sat 100% entire episode. Patient transferred from [facility] ED with EMS. Admission cancelled, dispo changed. Discharge - Discharge Information Problems reviewed: Yes Clinical Impression/Diagnosis: Seizure, Hypokalemia Lupus Qualifiers: Systemic lupus erythematosus type: unspecified Systemic lupus erythematosus organ involvement: unspecified Qualified Code(s): M32.9 - Systemic lupus erythematosus, unspecified Condition: Guarded Disposition: TRANSFER ACUTE CARE/OTHER HOSP - Admission Yes - Follow up/Referral - Patient Discharge Instructions - Post Discharge Activity
[2019-11-03 11:17] LABS: BASO % 1.3 % (0-2.0); EOS % 0.1 % (0-4.5); HEMATOCRIT 41.2 % (32.4-45.2); HEMOGLOBIN 13.6 GM/dL (10.7-15.3); LYMPH % 14.8 % (8-40); MCH 31.4 pg (25.7-33.7); MCHC 32.9 g/dl (32.0-36.0); MEAN CELL VOLUME 95.3 fl (80-96); MEAN PLT VOLUME 9.2 fl (7.5-11.1); MONO % 9.6 % (3.8-10.2); NEUT % 74.2 % (42.8-82.8); PLATELET COUNT 230 K/MM3 (134-434); RBC 4.32 M/mm3 (3.60-5.2); RDW 12.8 % (11.6-15.6); WHITE BLOOD COUNT 5.2 K/mm3 (4.0-10.0)
[2019-11-03 11:24] LABS: INR 0.97 (0.83-1.09); PROTHROMBIN TIME (PATIENT) 11.4 SEC (9.7-13.0)
[2019-11-03] MEDS ORDERED: LORazepam 2 MG/ML SDV VIAL ONE ×4 (11:44→16:44)
[2019-11-03] MEDS ORDERED: levETIRAcetam 500 MG/5 ML INJECTION VIAL IVPB ONE ×2 (11:54→12:12)
[2019-11-03 12:05] LABS: ALBUMIN 4.2 g/dl (3.4-5.0); BLOOD UREA NITROGEN 9.6 mg/dL (7-18); CHLORIDE 108 mmol/L (98-107); CO2 17 mmol/L (21-32); MAGNESIUM 2.2 mg/dL (1.8-2.4); SODIUM 140 mmol/L (136-145)
[2019-11-03 12:14] LABS: ALK PHOS 51 U/L (45-117); BILIRUBIN,TOTAL 0.4 mg/dL (0.2-1); CREATININE 1.3 mg/dL (0.55-1.3); SGOT/AST 15 U/L (15-37); SGPT/ALT 23 U/L (13-61); TOT PROT 7.9 g/dl (6.4-8.2)
[2019-11-03 12:18] LABS: ANION GAP 16 MMOL/L (8-16); GLUCOSE,RANDOM 102 mg/dL (74-106)
[2019-11-03 12:19] LABS: POTASSIUM 2.9 mmol/L (3.5-5.1)
[2019-11-03] MEDS ORDERED: POTASSIUM CHLORIDE TABS 20 MEQ TABLET.ER (FP) PO ONE ×2 (12:19→12:43)
--- NOTE | 2019-11-03 12:38 | PDOC ---
Documentation entered by Erma Gusman SCRIBE, acting as scribe for Nicole Mcmillan MD. Nicole Mcmillan MD: This documentation has been prepared by the olgaeNaseem Lincy, SCRIBE, under my direction and personally reviewed by me in its entirety. I confirm that the documentation accurately reflects all work, treatment, procedures, and medical decision making performed by me. Attending Attestation - Resident Resident Name: Saturnino Freeman - ED Attending Attestation I have performed the following: I have examined & evaluated the patient, The case was reviewed & discussed with the resident, I agree w/resident's findings & plan, Exceptions are as noted - HPI HPI: 11/03/19 11:00 The patient is a 39-year-old female with a past medical history significant for seizure vs. chorea type movement disorder (follows neurology at [facility], in addition to Dr. Avendano). Lupus, and Renal CA s/p R. partial nephrectomy who presents to the emergency department via BLS ambulance s/p a witnessed seizure at work. No medication was given on the field. Patient unable to answer questions, history obtained via EMS, or from prior charts. Allergies: oxycodone HCL - Physicial Exam PE: 11/03/19 12:33 On initial evaluation the patient was awake appears to be hyperventilating with tachypnea is interactive and able to track with eye movements on speaking to her lungs are clear bilaterally heart is regular tachycardia no murmurs rubs or gallops appreciated abdomen is soft and nontender extremities are warm and well- perfused examination of the clothing shows no signs of incontinence patient is moving all extremities and responds to verbal commands with looking at me however he is not following commands otherwise - Medical Decision Making 11/03/19 12:34 39-year-old female history of renal CA status post partial nephrectomy lupus and prior movement disorder undifferentiated has been admitted for this and worked up with an MRI and EEG outpatient and a follow-up MRI per patient's who is now at the bedside providing additional history it was felt that the patient may have had an abnormal MRI in the past concern for possible MS however on repeat imaging they felt it was normal she had a negative EEG was never started on any antiepileptics. He has never seen her have a seizure any similar episodes since then today while she was at work she was having a stressful conversation with thought that she may be about to be terminated as subsequently was found to start shaking patient's coworker said they heard a thud and found the patient on the floor violently shaking after that she was briefly unresponsive there is no noted incontinence at the time Upon examination the patient was initially appeared to be having what looks like a panic reaction with severe tachypnea however differential included acid-base abnormalities toxic ingestion or some atypical post ictal. Response. CT head and cervical spine were ordered to rule out any underlying neoplasm or lead to her past history while at the CAT scan the patient had a second seizure- like episode which was witnessed by myself consisted of arms and legs shaking she did have a brief postictal period with sonorous breathing no noted incontinence the post of the period lasted approximately 2 minutes and then she had a second seizure-like activity episode with arms both flexed and tense for approximately 30 seconds and then subsequently stopped. Following the patient was very somnolent for about 5 minutes and then was seen to be talking with her Will consult Dr. Avendano as he is familiar with the patient in the past patient will likely require admission for recurrent seizures versus other seizure-like reaction she was loaded with Veebox basic labs are sent patient is noted to be hypokalemic will be repleted in addition we will add acid base due to her previous tachypnea on presentation concerns for any acid-base abnormalities. Talk screen will be sent urine chest x-ray to rule out any pneumonia or aspiration secondary to her event 11/03/19 15:44 pt with recurrent seizures in the ED had total of 6 seizures in the ER over 4 hours in the ED. all were short lived less than 5 min, post ictal following. pt had periods of returning close to baseline, however was drowsy. concerns for status due to recurrent seizures. pt h/o SLE high risk for cerebritis. d/w nuerologist credit collections specialist, will transfer pt to [facility] for continous EEg monitoring, has seen nuerologist previously at [facility]. d/w team regarding intubation, at this time pt airway intact, will transfer holding intubation. d/w receiving team and are in agreements with plan. Discharge - Discharge Information Problems reviewed: Yes Clinical Impression/Diagnosis: Seizure, Hypokalemia, Lupus Condition: Guarded - Admission Yes - Follow up/Referral - Patient Discharge Instructions - Post Discharge Activity
[2019-11-03] MEDS ORDERED: KCL 10 MEQ IVPB 10 MEQ/100 ML INFUS.BAG IVPB ONE (12:43)
[2019-11-03] MEDS: KCL 10 MEQ IVPB 10 MEQ/100 ML INFUS.BAG IVPB SCH ×3 (13:06→15:10)
[2019-11-03 13:07] LABS: EPI CELLS 11 /uL (0-25.1); HYALINE CASTS 2 /uL (0-3.1); URINE APPEARANCE CLEAR; URINE BACTERIA 151 /uL (0-1359); URINE BILIRUBIN NEGATIVE (NEGATIVE); URINE COLOR YELLOW; URINE GLUCOSE (UA) NEGATIVE (NEGATIVE); URINE KETONE TRACE (NEGATIVE); URINE LEUK ESTERASE NEGATIVE (NEGATIVE); URINE NITRITE NEGATIVE (NEGATIVE); URINE PROTEIN 1+ (NEGATIVE); URINE RBC 11 /uL (0-23.9); URINE UROBILINOGEN 0.2 mg/dL (0.2-1.0); URINE WBC 5 /uL (0-25.8)
[2019-11-03 13:16] LABS: COCAINE, UR NEGATIVE ng/ml (CUTOFF=300); METHADONE, UR NEGATIVE ng/ml (CUTOFF=300); OPIATES, URI NEGATIVE ng/ml (CUTOFF=300); PHENCYCLIDINE,URINE NEGATIVE ng/ml (CUTOFF=25); URINE AMPHETAMINES NEGATIVE ng/ml (CUTOFF=500); URINE BARBITURATES NEGATIVE ng/ml (CUTOFF=200); URINE BENZODIAZEPINES NEGATIVE ng/ml (CUTOFF=200)
[2019-11-03] MEDS ORDERED: KCL 10 MEQ IVPB 20 MEQ/200 ML INFUS.BAG IVPB ONE (13:56)
[2019-11-03 13:58] LABS: VENOUS BASE EXCESS -9.8 mmol/L (-2-2); VENOUS O2 SATURATION 59.8 % (70-80); VENOUS PCO2 35.1 mmHg (38-52); VENOUS PH 7.278 (7.310-7.410)
[2019-11-03] MEDS ORDERED: SODIUM CHLORIDE IVPB ONE (14:07)
[2019-11-03] MEDS ORDERED: FOSPHENYTOIN SODIUM IVPB ONE (14:07)
[2019-11-03] MEDS ORDERED: PHENYTOIN SODIUM 100 MG/2 ML VIAL IVPB ONE (14:11)
--- NOTE | 2019-11-03 14:42 | EKG ---
Test Reason : Blood Pressure : / mmHG Vent. Rate : 124 BPM Atrial Rate : 065 BPM P-R Int : 000 ms QRS Dur : 080 ms QT Int : 424 ms P-R-T Axes : 000 042 046 degrees QTc Int : 609 ms SINUS TACHYCARDIA PREMATURE VENTRICULAR COMPLEXES Confirmed by JAVIER TANNER MD ([id number]) on 11/03/2019 2:41:22 PM Referred By: Confirmed By:JAVIER TANNER MD
[2019-11-03] MEDS ORDERED: SODIUM CHLORIDE 0.9% 500 ML INFUS.BAG IV ONE (14:44)
[2019-11-03] MEDS ORDERED: NAPH,MB-DB/K PH,MBDB POWDER PACKET PO SCH (14:45)
[2019-11-03] MEDS ORDERED: HEPARIN NA (PORCINE) 5,000 UNITS/ML 1ML VIAL SQ SCH (14:45)
--- NOTE | 2019-11-03 15:01 | HP ---
CHIEF COMPLAINT: Seizures PCP: Dr. Ravi Ellison HISTORY OF PRESENT ILLNESS: 39 year old female patient with past medical history that includes Lupus, right kidney cancer s/p partial nephrectomy, possible seizure like activity worked up by Dr. Avendano a few years ago, who presented to the ED after experiencing a seizure. The patient reports feeling anxious in the morning but no precipitating events that she can recall for causing the seizure. 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 In the ED, the patient experienced multiple seizures, which resolved with a post-ictal state after getting medications. In her post-ictal state, the patient is drowsy and A&Ox0, but after ten to twenty minutes is able to talk and answer questions. GCS score 15/15. The patient reports feeling numbness and tingling in her fingers and toes before the seizures begins. During the seizures her arms and head twitch. ER course was notable for: (1) Multiple Seizures in ED with medications successful at aborting the seizures each time (2) CT Head, Cervical spine CT, EKG, Labs Recent Travel: PAST MEDICAL HISTORY: Lupus, Right Kidney Cancer s/p Partial Nephrectomy PAST SURGICAL HISTORY: Right Partial Nephrectomy Social History: Smoking: Denies Alcohol: Denies Drugs: Denies Allergies oxycodone HCl [From Percocet] Allergy (Verified 11/03/19 10:31) Itching HOME MEDICATIONS: Home Medications Medication Instructions Recorded Methylprednisolone [Medrol Dose 4 mg PO ASDIR #21 tablet 04/15/19 Pérez] REVIEW OF SYSTEMS CONSTITUTIONAL: Absent: fever HEENT: Absent: visual changes CARDIOVASCULAR: palpitations Absent: RESPIRATORY: Absent: shortness of breath GASTROINTESTINAL: Absent: diarrhea, constipation ENDOCRINE: 7 lb weight loss in last 2 months Absent: NEUROLOGIC: headache, weakness, numbness from knees to ankles bilaterally, multiple seizures in ED Absent: vision changes PHYSICAL EXAMINATION Vital Signs - 24 hr 11/03/19 11/03/19 11/03/19 10:29 10:32 10:57 Temperature 98.5 F Pulse Rate 120 H Pulse Rate [ 121 H Right Apical] Respiratory 20 24 H Rate Blood Pressure 127/90 Blood Pressure 123/82 [Right Arm] O2 Sat by Pulse 100 99 100 Oximetry (%) 11/03/19 13:52 Temperature Pulse Rate Pulse Rate [ 114 H Right Apical] Respiratory 16 Rate Blood Pressure Blood Pressure 124/83 [Right Arm] O2 Sat by Pulse 100 Oximetry (%) GENERAL: A&Ox0. Able to answer questions, spontaneous eye movement, able to move on command (GCS 15) HEAD: Normal with no signs of trauma. EYES: Pupils equal, round and reactive to light, extraocular movements intact. No lid lag. EARS, NOSE, THROAT: Ears normal, nares patent, oropharynx clear without exudates. Moist mucous membranes. NECK: Normal range of motion, supple without lymphadenopathy, JVD, or masses. LUNGS: Breath sounds equal, clear to auscultation bilaterally. No wheezes, and no crackles. No accessory muscle use. HEART: Tachycardia. Regular rhythm, normal S1 and S2 without murmur, rub or gallop. ABDOMEN: Soft, nontender, not distended, normoactive bowel sounds, no guarding, no rebound, no masses. MUSCULOSKELETAL: Normal range of motion at all joints. No bony deformities or tenderness. UPPER EXTREMITIES: 2+ pulses, warm, well-perfused. No cyanosis. No clubbing. No peripheral edema. LOWER EXTREMITIES: 2+ pulses, warm, well-perfused. No calf tenderness. No peripheral edema. NEUROLOGICAL: Cranial nerves II-XII intact. Normal speech. Normal gait. Numbness bilaterally from knees to ankles. Muscle Strength UE and LE +4/5 bilaterally. DTR's +1/4 bilaterally UE and LE. PSYCHIATRIC: Cooperative. Good eye contact. Appropriate mood and affect. SKIN: Warm, dry, normal turgor, no rashes or lesions noted, normal capillary refill. Laboratory Results - last 24 hr 11/03/19 11/03/19 11/03/19 10:28 10:28 10:28 WBC 5.2 RBC 4.32 Hgb 13.6 Hct 41.2 MCV 95.3 MCH 31.4 MCHC 32.9 RDW 12.8 Plt Count 230 MPV 9.2 Absolute Neuts (auto) 3.9 Neutrophils % 74.2 D Lymphocytes % 14.8 D Monocytes % 9.6 Eosinophils % 0.1 D Basophils % 1.3 Nucleated RBC % 0 PT with INR 11.40 INR 0.97 PTT (Actin FS) 26.0 VBG pH POC VBG pCO2 POC VBG pO2 VBG HCO3 VBG O2 Sat (Hang) VBG Base Excess Sodium Potassium Chloride Carbon Dioxide Anion Gap BUN Creatinine Est GFR (CKD-EPI)AfAm Est GFR (CKD-EPI)NonAf POC Glucometer Random Glucose Lactic Acid Calcium Phosphorus Magnesium Total Bilirubin AST ALT Alkaline Phosphatase Creatine Kinase Creatine Kinase Index CK-MB (CK-2) Troponin I Total Protein Albumin TSH Serum , Qual Negative Urine Color Urine Appearance Urine pH Ur Specific [place] Urine Protein Urine Glucose (UA) Urine Ketones Urine Blood Urine Nitrite Urine Bilirubin Urine Urobilinogen Ur Leukocyte Esterase Urine WBC (Auto) Urine RBC (Auto) Urine Casts (Auto) U Epithel Cells (Auto) Urine Bacteria (Auto) Opiates Screen Methadone Screen Barbiturate Screen Carbamazepine Phencyclidine Screen Ur Amphetamines Screen MDMA (Ecstasy) Screen Benzodiazepines Screen Cocaine Screen U Marijuana (THC) Screen Alcohol, Quantitative 11/03/19 11/03/19 11/03/19 10:28 10:28 10:41 WBC RBC Hgb Hct MCV MCH MCHC RDW Plt Count MPV Absolute Neuts (auto) Neutrophils % Lymphocytes % Monocytes % Eosinophils % Basophils % Nucleated RBC % PT with INR INR PTT (Actin FS) VBG pH POC VBG pCO2 POC VBG pO2 VBG HCO3 VBG O2 Sat (Hang) VBG Base Excess Sodium 140 Potassium 2.9 L* Chloride 108 H Carbon Dioxide 17 L Anion Gap 16 BUN 9.6 Creatinine 1.3 Est GFR (CKD-EPI)AfAm 59.85 Est GFR (CKD-EPI)NonAf 51.64 POC Glucometer 124 Random Glucose 102 Lactic Acid Calcium 9.0 Phosphorus 2.0 L Magnesium 2.2 Total Bilirubin 0.4 AST 15 ALT 23 Alkaline Phosphatase 51 Creatine Kinase 302 H Creatine Kinase Index 0.6 CK-MB (CK-2) 2.1 Troponin I < 0.02 Total Protein 7.9 Albumin 4.2 TSH 1.45 Serum , Qual Urine Color Urine Appearance Urine pH Ur Specific [place] Urine Protein Urine Glucose (UA) Urine Ketones Urine Blood Urine Nitrite Urine Bilirubin Urine Urobilinogen Ur Leukocyte Esterase Urine WBC (Auto) Urine RBC (Auto) Urine Casts (Auto) U Epithel Cells (Auto) Urine Bacteria (Auto) Opiates Screen Methadone Screen Barbiturate Screen Carbamazepine <0.5 Phencyclidine Screen Ur Amphetamines Screen MDMA (Ecstasy) Screen Benzodiazepines Screen Cocaine Screen U Marijuana (THC) Screen Alcohol, Quantitative < 3 11/03/19 11/03/19 11/03/19 11:20 12:14 12:14 WBC RBC Hgb Hct MCV MCH MCHC RDW Plt Count MPV Absolute Neuts (auto) Neutrophils % Lymphocytes % Monocytes % Eosinophils % Basophils % Nucleated RBC % PT with INR INR PTT (Actin FS) VBG pH POC VBG pCO2 POC VBG pO2 VBG HCO3 VBG O2 Sat (Hang) VBG Base Excess Sodium Potassium Chloride Carbon Dioxide Anion Gap BUN Creatinine Est GFR (CKD-EPI)AfAm Est GFR (CKD-EPI)NonAf POC Glucometer Random Glucose Lactic Acid 6.1 H* Calcium Phosphorus Magnesium Total Bilirubin AST ALT Alkaline Phosphatase Creatine Kinase Creatine Kinase Index CK-MB (CK-2) Troponin I Total Protein Albumin TSH Serum , Qual Urine Color Yellow Urine Appearance Clear Urine pH 5.0 D Ur Specific [place] 1.017 Urine Protein 1+ H Urine Glucose (UA) Negative Urine Ketones Trace H Urine Blood Trace Urine Nitrite Negative Urine Bilirubin Negative Urine Urobilinogen 0.2 Ur Leukocyte Esterase Negative Urine WBC (Auto) 5 Urine RBC (Auto) 11 Urine Casts (Auto) 2 U Epithel Cells (Auto) 11 Urine Bacteria (Auto) 151 Opiates Screen Negative Methadone Screen Negative Barbiturate Screen Negative Carbamazepine Phencyclidine Screen Negative Ur Amphetamines Screen Negative MDMA (Ecstasy) Screen Negative Benzodiazepines Screen Negative Cocaine Screen Negative U Marijuana (THC) Screen Negative Alcohol, Quantitative 11/03/19 13:25 WBC RBC Hgb Hct MCV MCH MCHC RDW Plt Count MPV Absolute Neuts (auto) Neutrophils % Lymphocytes % Monocytes % Eosinophils % Basophils % Nucleated RBC % PT with INR INR PTT (Actin FS) VBG pH 7.278 L POC VBG pCO2 35.1 L POC VBG pO2 34.7 VBG HCO3 16.0 L VBG O2 Sat (Hang) 59.8 L VBG Base Excess -9.8 L Sodium Potassium Chloride Carbon Dioxide Anion Gap BUN Creatinine Est GFR (CKD-EPI)AfAm Est GFR (CKD-EPI)NonAf POC Glucometer Random Glucose Lactic Acid Calcium Phosphorus Magnesium Total Bilirubin AST ALT Alkaline Phosphatase Creatine Kinase Creatine Kinase Index CK-MB (CK-2) Troponin I Total Protein Albumin TSH Serum , Qual Urine Color Urine Appearance Urine pH Ur Specific [place] Urine Protein Urine Glucose (UA) Urine Ketones Urine Blood Urine Nitrite Urine Bilirubin Urine Urobilinogen Ur Leukocyte Esterase Urine WBC (Auto) Urine RBC (Auto) Urine Casts (Auto) U Epithel Cells (Auto) Urine Bacteria (Auto) Opiates Screen Methadone Screen Barbiturate Screen Carbamazepine Phencyclidine Screen Ur Amphetamines Screen MDMA (Ecstasy) Screen Benzodiazepines Screen Cocaine Screen U Marijuana (THC) Screen Alcohol, Quantitative ASSESSMENT/PLAN: 39 year old female patient with past medical history of Lupus, Renal Cancer s/p Right Partial Nephrectomy, and Possible past seizure like activity with follow up with Neurologist with MRI-negative for needing medications, who presented to the ED with after a seizure, and then proceeded to have multiple seizures in the ED, over 5 episodes at least. 1. Seizures - Multiple witnessed seizures in ED of head and arm twitching - Neuro consulted - MRI - EEG - Keppra 1000mg BID 2. Low Potassium - K 2.9 - IV Potassium given in ED - Monitoring Electrolytes 3. Low Phosphorus - Phos 2.0 - Phos-Nac Packet today and tomorrow - Monitoring Electrolytes 4. Tachycardia with PVCs - Tele bed # FEN - 1/2 Liter NS, Monitoring Electrolytes, Regular Diet DVT PPx - Heparin SQ Dispo - ICU vs. Transfer Family Medical History Family History: Denies Other Family History: Patient does not know if she has a Family History of seizures Visit type - Emergency Visit Emergency Visit: Yes ED Registration Date: 11/03/19 Care time: The patient presented to the Emergency Department on the above date and was hospitalized for further evaluation of their emergent condition. - New Patient This patient is new to me today: Yes Date on this admission: 11/03/19 - Critical Care Critical Care patient: No ATTENDING PHYSICIAN STATEMENT I saw and evaluated the patient. I reviewed the resident's note and discussed the case with the resident. I agree with the resident's findings and plan as documented. SUBJECTIVE: OBJECTIVE: ASSESSMENT AND PLAN:
[2019-11-03] MEDS ORDERED: RAPID SEQUENCE INTUBATION KIT NR ONE (15:07)
[2019-11-03] MEDS ORDERED: methylPREDNISolone NA SUCC 125 MG/2 ML VIAL IVPB ONE (15:23)
[2019-11-03] MEDS ORDERED: methylPREDNISolone NA SUCC 125 MG/2 ML VIAL ONE (15:24)
[2019-11-03] MEDS ORDERED: HEPARIN NA (PORCINE) 5,000 UNITS/ML 1ML VIAL ONE (15:38)
--- NOTE | 2019-11-03 16:01 | CONSULT ---
Consultation: REQUESTING PROVIDER: CONSULT REQUEST: We have been asked to medically evaluate this patient for (specify). HISTORY OF PRESENT ILLNESS: 39 yo female pmh Lupus (untreated), right kidney cancer s/p partial nephrectomy and possible seizures presents to [facility] after multiple reported seizures today. The patient reports feeling anxious in the morning and having a significant amount of work related stress, more than usual recently. 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 Pt had approx 7 episodes prior to evaluation despite 8 mg ativan, 1000mg Keppra load, pending Fos Phen. Seizures last 1-5 min as per at the bedside and pt becomes post ictal AOX0 for a few min and then becomes more responsive but has not returned to baseline mental status as per . Pt saw Dr. Avendano (Neurology) for seizure like symptoms over 1 year ago, pt was given approx 1 week of Clonazepam, no further seizures noted and pt was stopped on medications. ICU VS Transfer for continuos EEG monitoring in NICU setting ED course notable for: 1- CT head and C spine neg for acute concerns 2- Multiple witnessed seizures despite treatment 3- Ativan, Keppra and Phenytoin for seizures as per Neuro and Potassium IV or hypokalemia 4- Labs showing elevated lactate and Hypokalemia REVIEW OF SYSTEMS: CONSTITUTIONAL: Admits to increased stress related to work Absent: fever, chills, diaphoresis, generalized weakness, malaise, loss of appetite, weight change HEENT: Absent: rhinorrhea, nasal congestion, throat pain, throat swelling, difficulty swallowing, mouth swelling, ear pain, eye pain, visual changes CARDIOVASCULAR: Absent: chest pain, syncope, palpitations, irregular heart rate, lightheadedness, peripheral edema RESPIRATORY: Absent: cough, shortness of breath, dyspnea with exertion, orthopnea, wheezing, stridor, hemoptysis GASTROINTESTINAL: Absent: abdominal pain, abdominal distension, nausea, vomiting, diarrhea, constipation, melena, hematochezia GENITOURINARY: Absent: dysuria, frequency, urgency, hesitancy, hematuria, flank pain, genital pain MUSCULOSKELETAL: Absent: myalgia, arthralgia, joint swelling, back pain, neck pain SKIN: Absent: rash, itching, pallor NEUROLOGIC: Admits to confusion and loss of time. Unaware of reported convulsions Absent: headache, focal weakness or paresthesias, dizziness, unsteady gait, seizure, mental status changes, bladder or bowel incontinence PSYCHIATRIC: Absent: anxiety, depression, suicidal or homicidal ideation, hallucinations. PHYSICAL EXAMINATION Vital Signs - 24 hr 11/03/19 11/03/19 11/03/19 10:29 10:32 10:57 Temperature 98.5 F Pulse Rate 120 H Pulse Rate [ 121 H Right Apical] Respiratory 20 24 H Rate Blood Pressure 127/90 Blood Pressure 123/82 [Right Arm] O2 Sat by Pulse 100 99 100 Oximetry (%) 11/03/19 13:52 Temperature Pulse Rate Pulse Rate [ 114 H Right Apical] Respiratory 16 Rate Blood Pressure Blood Pressure 124/83 [Right Arm] O2 Sat by Pulse 100 Oximetry (%) GENERAL: Awake, alert, oriented X 2, in no acute distress. HEAD: Normal with no signs of trauma. EYES: Pupils equal, round and reactive to light, extraocular movements intact, sclera anicteric, conjunctiva clear. No lid lag. EARS, NOSE, THROAT: Ears normal, nares patent, oropharynx clear without exudates. Moist mucous membranes. NECK: Normal range of motion, supple without lymphadenopathy, JVD, or masses. LUNGS: Breath sounds equal, clear to auscultation bilaterally. No wheezes, and no crackles. No accessory muscle use. HEART: Regular rate and rhythm, normal S1 and S2 without murmur, rub or gallop. ABDOMEN: Soft, nontender, not distended, normoactive bowel sounds, no guarding, no rebound, no masses. No hepatomegaly or splenomegaly. MUSCULOSKELETAL: Normal range of motion at all joints. No bony deformities or tenderness. No CVA tenderness. UPPER EXTREMITIES: 2+ pulses, warm, well-perfused. No cyanosis. No clubbing. Cap refill <2 seconds. No peripheral edema. LOWER EXTREMITIES: 2+ pulses, warm, well-perfused. No calf tenderness. No peripheral edema. NEUROLOGICAL: AOX2, speaks in full sentences. Cranial nerves II-XII intact. Normal speech. PSYCHIATRIC: Cooperative. Good eye contact. Appropriate mood and affect. SKIN: Warm, dry, normal turgor, no rashes or lesions noted. Laboratory Results - last 24 hr 11/03/19 11/03/19 11/03/19 10:28 10:28 10:28 WBC 5.2 RBC 4.32 Hgb 13.6 Hct 41.2 MCV 95.3 MCH 31.4 MCHC 32.9 RDW 12.8 Plt Count 230 MPV 9.2 Absolute Neuts (auto) 3.9 Neutrophils % 74.2 D Lymphocytes % 14.8 D Monocytes % 9.6 Eosinophils % 0.1 D Basophils % 1.3 Nucleated RBC % 0 PT with INR 11.40 INR 0.97 PTT (Actin FS) 26.0 VBG pH POC VBG pCO2 POC VBG pO2 VBG HCO3 VBG O2 Sat (Hang) VBG Base Excess Sodium Potassium Chloride Carbon Dioxide Anion Gap BUN Creatinine Est GFR (CKD-EPI)AfAm Est GFR (CKD-EPI)NonAf POC Glucometer Random Glucose Lactic Acid Calcium Phosphorus Magnesium Total Bilirubin AST ALT Alkaline Phosphatase Creatine Kinase Creatine Kinase Index CK-MB (CK-2) Troponin I Total Protein Albumin TSH Serum , Qual Negative Urine Color Urine Appearance Urine pH Ur Specific [place] Urine Protein Urine Glucose (UA) Urine Ketones Urine Blood Urine Nitrite Urine Bilirubin Urine Urobilinogen Ur Leukocyte Esterase Urine WBC (Auto) Urine RBC (Auto) Urine Casts (Auto) U Epithel Cells (Auto) Urine Bacteria (Auto) Opiates Screen Methadone Screen Barbiturate Screen Carbamazepine Phencyclidine Screen Ur Amphetamines Screen MDMA (Ecstasy) Screen Benzodiazepines Screen Cocaine Screen U Marijuana (THC) Screen Alcohol, Quantitative 11/03/19 11/03/19 11/03/19 10:28 10:28 10:41 WBC RBC Hgb Hct MCV MCH MCHC RDW Plt Count MPV Absolute Neuts (auto) Neutrophils % Lymphocytes % Monocytes % Eosinophils % Basophils % Nucleated RBC % PT with INR INR PTT (Actin FS) VBG pH POC VBG pCO2 POC VBG pO2 VBG HCO3 VBG O2 Sat (Hang) VBG Base Excess Sodium 140 Potassium 2.9 L* Chloride 108 H Carbon Dioxide 17 L Anion Gap 16 BUN 9.6 Creatinine 1.3 Est GFR (CKD-EPI)AfAm 59.85 Est GFR (CKD-EPI)NonAf 51.64 POC Glucometer 124 Random Glucose 102 Lactic Acid Calcium 9.0 Phosphorus 2.0 L Magnesium 2.2 Total Bilirubin 0.4 AST 15 ALT 23 Alkaline Phosphatase 51 Creatine Kinase 302 H Creatine Kinase Index 0.6 CK-MB (CK-2) 2.1 Troponin I < 0.02 Total Protein 7.9 Albumin 4.2 TSH 1.45 Serum , Qual Urine Color Urine Appearance Urine pH Ur Specific [place] Urine Protein Urine Glucose (UA) Urine Ketones Urine Blood Urine Nitrite Urine Bilirubin Urine Urobilinogen Ur Leukocyte Esterase Urine WBC (Auto) Urine RBC (Auto) Urine Casts (Auto) U Epithel Cells (Auto) Urine Bacteria (Auto) Opiates Screen Methadone Screen Barbiturate Screen Carbamazepine <0.5 Phencyclidine Screen Ur Amphetamines Screen MDMA (Ecstasy) Screen Benzodiazepines Screen Cocaine Screen U Marijuana (THC) Screen Alcohol, Quantitative < 3 11/03/19 11/03/19 11/03/19 11:20 12:14 12:14 WBC RBC Hgb Hct MCV MCH MCHC RDW Plt Count MPV Absolute Neuts (auto) Neutrophils % Lymphocytes % Monocytes % Eosinophils % Basophils % Nucleated RBC % PT with INR INR PTT (Actin FS) VBG pH POC VBG pCO2 POC VBG pO2 VBG HCO3 VBG O2 Sat (Hang) VBG Base Excess Sodium Potassium Chloride Carbon Dioxide Anion Gap BUN Creatinine Est GFR (CKD-EPI)AfAm Est GFR (CKD-EPI)NonAf POC Glucometer Random Glucose Lactic Acid 6.1 H* Calcium Phosphorus Magnesium Total Bilirubin AST ALT Alkaline Phosphatase Creatine Kinase Creatine Kinase Index CK-MB (CK-2) Troponin I Total Protein Albumin TSH Serum , Qual Urine Color Yellow Urine Appearance Clear Urine pH 5.0 D Ur Specific [place] 1.017 Urine Protein 1+ H Urine Glucose (UA) Negative Urine Ketones Trace H Urine Blood Trace Urine Nitrite Negative Urine Bilirubin Negative Urine Urobilinogen 0.2 Ur Leukocyte Esterase Negative Urine WBC (Auto) 5 Urine RBC (Auto) 11 Urine Casts (Auto) 2 U Epithel Cells (Auto) 11 Urine Bacteria (Auto) 151 Opiates Screen Negative Methadone Screen Negative Barbiturate Screen Negative Carbamazepine Phencyclidine Screen Negative Ur Amphetamines Screen Negative MDMA (Ecstasy) Screen Negative Benzodiazepines Screen Negative Cocaine Screen Negative U Marijuana (THC) Screen Negative Alcohol, Quantitative 11/03/19 13:25 WBC RBC Hgb Hct MCV MCH MCHC RDW Plt Count MPV Absolute Neuts (auto) Neutrophils % Lymphocytes % Monocytes % Eosinophils % Basophils % Nucleated RBC % PT with INR INR PTT (Actin FS) VBG pH 7.278 L POC VBG pCO2 35.1 L POC VBG pO2 34.7 VBG HCO3 16.0 L VBG O2 Sat (Hang) 59.8 L VBG Base Excess -9.8 L Sodium Potassium Chloride Carbon Dioxide Anion Gap BUN Creatinine Est GFR (CKD-EPI)AfAm Est GFR (CKD-EPI)NonAf POC Glucometer Random Glucose Lactic Acid Calcium Phosphorus Magnesium Total Bilirubin AST ALT Alkaline Phosphatase Creatine Kinase Creatine Kinase Index CK-MB (CK-2) Troponin I Total Protein Albumin TSH Serum , Qual Urine Color Urine Appearance Urine pH Ur Specific [place] Urine Protein Urine Glucose (UA) Urine Ketones Urine Blood Urine Nitrite Urine Bilirubin Urine Urobilinogen Ur Leukocyte Esterase Urine WBC (Auto) Urine RBC (Auto) Urine Casts (Auto) U Epithel Cells (Auto) Urine Bacteria (Auto) Opiates Screen Methadone Screen Barbiturate Screen Carbamazepine Phencyclidine Screen Ur Amphetamines Screen MDMA (Ecstasy) Screen Benzodiazepines Screen Cocaine Screen U Marijuana (THC) Screen Alcohol, Quantitative Active Medications Generic Name Dose Route Start Last Admin Trade Name Freq PRN Reason Stop Dose Admin Heparin Sodium (Porcine) 5,000 unit 11/03/19 14:45 Heparin - SQ TID LUCILA Levetiracetam 1,000 mg 11/03/19 22:00 Keppra - PO BID LUCILA Potassium Phos/Sodium Phos 1 packet 11/03/19 14:45 Phos-Nak Packet - PO 11/04/19 10:01 DAILY LUCILA ASSESSMENT/PLAN: 39 yo female, hx renal CA and Lupus (untreated) presents with multiple witnessed episodes of persistent convulsions despite multiple rounds of treatment. ED Physicians report attempting transfer to [facility] due to inability for continuous E EG monitoring at [facility]. - CBC WNL - Coags WNL - K 2.9 IV and PO K given - ETOH negative - UA WNL - UTOX negative - TSH WNL - CK 302 - lactate 6.1 CT head negative for acute pathology, no obvious lesion or mass. CT c-spine negative for acute pathology. Concern for metastatic spread. MRI order placed however, pt to unstable for MRI at this time Also consider lupus cerebritis due to hx of lupus that is untreated. Low on differential however, Pt did receive steroids for puritis as noted below Pt is protecting airway despite multiple episodes of convulsions with normal vitals and O2 saturation. Recommend placing on continuous CO2 monitoring and have AMBU bag and Airway box close by for potential intubation Last meal was lunch yesterday, aspiration precautions recommended (NPO now) Use supplemental O2 as needed Recommend benzos as needed to break seizures SCDs for prophylaxis, do not recommend AC at this time for concerns of possible brain Mets/pathology ED resident discussed case with Neuro, Dr. Marvin who recommends 20 mg/kg fosphenytoin IV and 100mg Dilantin TID for prevention of status epilepticus. After fosphenytoin infusion pt reports diffuse puritis. Gave 125 solu- medrol. Monitor closely for signs of Anaphylaxis and consider Epinephrine if tongue swelling, drooling or potential loss of airway occurs ER resident discussed case with [facility] Neurology, Dr. Damico accepts pt for transfer. Pt departs fro ED to [facility] via EMS Dispo: Agree with transfer to NSICU. Thank you for this consultative opportunit y. Visit type - Emergency Visit Emergency Visit: Yes ED Registration Date: 11/03/19 Care time: The patient presented to the Emergency Department on the above date and was hospitalized for further evaluation of their emergent condition. - New Patient This patient is new to me today: Yes Date on this admission: 11/03/19 - Critical Care Critical Care patient: Yes Total Critical Care Time (in minutes): 60 Critical Care Statement: The care of this patient involved high complexity decision making to prevent further life threatening deterioration of the patient's condition and/or to evaluate & treat vital organ system(s) failure or risk of failure. ATTENDING PHYSICIAN STATEMENT I saw and evaluated the patient. I reviewed the resident's note and discussed the case with the resident. I agree with the resident's findings and plan as documented. SUBJECTIVE: OBJECTIVE: ASSESSMENT AND PLAN:
[2019-11-03 16:25] VITALS: BP 109/68; PULSE 104
--- NOTE | 2019-11-03 17:10 | PN ---
Teaching Attending Note Name of Resident: James Perez ATTENDING PHYSICIAN STATEMENT I saw and evaluated the patient. I reviewed the resident's note and discussed the case with the resident. I agree with the resident's findings and plan as documented. SUBJECTIVE: 39 F, Lupus and apparent seizure currently not on any treatment. History of rig ht renal cancer s/p partial nephrectomy. Admitted via the ER due to multiple reported seizures. LOC in between episodes without return to full awareness. Apparently has been having a significant amount of work related stress. Noted tonic clonic motor movements. No travel history or sick contacts. No fever or chills. No known exposure to COVID19. CT Head : No acute process (? mild diffuse effacement). The patient has been accepted to [facility] for further work up and monitoring. She is currently protecting her airway and saturation is 100% on 2 L NC O2. Intake & Output 10/31/19 11/01/19 11/02/19 11/03/19 23:59 23:59 23:59 23:59 Weight 170 lb Last Vital Signs Temp Pulse Resp BP Pulse Ox 98.5 F 104 H 16 109/68 100 11/03/19 10:32 11/03/19 16:25 11/03/19 16:25 11/03/19 16:25 11/03/19 16:25 Active Medications Heparin Sodium (Porcine) (Heparin -) 5,000 unit SQ TID LUCILA Levetiracetam (Keppra -) 1,000 mg PO BID LUCILA Potassium Phos/Sodium Phos (Phos-Nak Packet -) 1 packet PO DAILY LUCILA Stop: 11/04/19 10:01 Last Admin: 11/03/19 16:04 Dose: Not Given Documented by: GENERAL: Drowsy but easily aroused and able to answer simple questions, breathing non-labored HEAD: Normal with no signs of trauma. EYES: Pupils equal, round and reactive to light, extraocular movements intact, sclera anicteric, conjunctiva clear. No lid lag. EARS, NOSE, THROAT: Ears normal, nares patent, oropharynx clear without exudates. Moist mucous membranes. NECK: Normal range of motion, supple without lymphadenopathy, JVD, or masses. LUNGS: Breath sounds equal, clear to auscultation bilaterally. No wheezes, and no crackles. No accessory muscle use. HEART: Regular rate and rhythm, normal S1 and S2 without murmur, rub or gallop. ABDOMEN: Soft, nontender, not distended, normoactive bowel sounds, no guarding, no rebound, no masses. No hepatomegaly or splenomegaly. MUSCULOSKELETAL: Normal range of motion at all joints. No bony deformities or tenderness. No CVA tenderness. UPPER EXTREMITIES: 2+ pulses, warm, well-perfused. No cyanosis. No clubbing. Cap refill <2 seconds. No peripheral edema. LOWER EXTREMITIES: 2+ pulses, warm, well-perfused. No calf tenderness. No peripheral edema. NEUROLOGICAL: Drowsy, intermittent LUE weakness (Inconsistent exam : suspected based on effort) PSYCHIATRIC: Cooperative. SKIN: Warm, dry, normal turgor, no rashes or lesions noted. Laboratory Results - last 24 hr 11/03/19 11/03/19 11/03/19 10:28 10:28 10:28 WBC 5.2 RBC 4.32 Hgb 13.6 Hct 41.2 MCV 95.3 MCH 31.4 MCHC 32.9 RDW 12.8 Plt Count 230 MPV 9.2 Absolute Neuts (auto) 3.9 Neutrophils % 74.2 D Lymphocytes % 14.8 D Monocytes % 9.6 Eosinophils % 0.1 D Basophils % 1.3 Nucleated RBC % 0 PT with INR 11.40 INR 0.97 PTT (Actin FS) 26.0 VBG pH POC VBG pCO2 POC VBG pO2 VBG HCO3 VBG O2 Sat (Hang) VBG Base Excess Sodium Potassium Chloride Carbon Dioxide Anion Gap BUN Creatinine Est GFR (CKD-EPI)AfAm Est GFR (CKD-EPI)NonAf POC Glucometer Random Glucose Lactic Acid Calcium Phosphorus Magnesium Total Bilirubin AST ALT Alkaline Phosphatase Creatine Kinase Creatine Kinase Index CK-MB (CK-2) Troponin I Total Protein Albumin TSH Serum , Qual Negative Urine Color Urine Appearance Urine pH Ur Specific [place] Urine Protein Urine Glucose (UA) Urine Ketones Urine Blood Urine Nitrite Urine Bilirubin Urine Urobilinogen Ur Leukocyte Esterase Urine WBC (Auto) Urine RBC (Auto) Urine Casts (Auto) U Epithel Cells (Auto) Urine Bacteria (Auto) Opiates Screen Methadone Screen Barbiturate Screen Carbamazepine Phencyclidine Screen Ur Amphetamines Screen MDMA (Ecstasy) Screen Benzodiazepines Screen Cocaine Screen U Marijuana (THC) Screen Alcohol, Quantitative 11/03/19 11/03/19 11/03/19 10:28 10:28 10:41 WBC RBC Hgb Hct MCV MCH MCHC RDW Plt Count MPV Absolute Neuts (auto) Neutrophils % Lymphocytes % Monocytes % Eosinophils % Basophils % Nucleated RBC % PT with INR INR PTT (Actin FS) VBG pH POC VBG pCO2 POC VBG pO2 VBG HCO3 VBG O2 Sat (Hang) VBG Base Excess Sodium 140 Potassium 2.9 L* Chloride 108 H Carbon Dioxide 17 L Anion Gap 16 BUN 9.6 Creatinine 1.3 Est GFR (CKD-EPI)AfAm 59.85 Est GFR (CKD-EPI)NonAf 51.64 POC Glucometer 124 Random Glucose 102 Lactic Acid Calcium 9.0 Phosphorus 2.0 L Magnesium 2.2 Total Bilirubin 0.4 AST 15 ALT 23 Alkaline Phosphatase 51 Creatine Kinase 302 H Creatine Kinase Index 0.6 CK-MB (CK-2) 2.1 Troponin I < 0.02 Total Protein 7.9 Albumin 4.2 TSH 1.45 Serum , Qual Urine Color Urine Appearance Urine pH Ur Specific [place] Urine Protein Urine Glucose (UA) Urine Ketones Urine Blood Urine Nitrite Urine Bilirubin Urine Urobilinogen Ur Leukocyte Esterase Urine WBC (Auto) Urine RBC (Auto) Urine Casts (Auto) U Epithel Cells (Auto) Urine Bacteria (Auto) Opiates Screen Methadone Screen Barbiturate Screen Carbamazepine <0.5 Phencyclidine Screen Ur Amphetamines Screen MDMA (Ecstasy) Screen Benzodiazepines Screen Cocaine Screen U Marijuana (THC) Screen Alcohol, Quantitative < 3 11/03/19 11/03/19 11/03/19 11:20 12:14 12:14 WBC RBC Hgb Hct MCV MCH MCHC RDW Plt Count MPV Absolute Neuts (auto) Neutrophils % Lymphocytes % Monocytes % Eosinophils % Basophils % Nucleated RBC % PT with INR INR PTT (Actin FS) VBG pH POC VBG pCO2 POC VBG pO2 VBG HCO3 VBG O2 Sat (Hang) VBG Base Excess Sodium Potassium Chloride Carbon Dioxide Anion Gap BUN Creatinine Est GFR (CKD-EPI)AfAm Est GFR (CKD-EPI)NonAf POC Glucometer Random Glucose Lactic Acid 6.1 H* Calcium Phosphorus Magnesium Total Bilirubin AST ALT Alkaline Phosphatase Creatine Kinase Creatine Kinase Index CK-MB (CK-2) Troponin I Total Protein Albumin TSH Serum , Qual Urine Color Yellow Urine Appearance Clear Urine pH 5.0 D Ur Specific [place] 1.017 Urine Protein 1+ H Urine Glucose (UA) Negative Urine Ketones Trace H Urine Blood Trace Urine Nitrite Negative Urine Bilirubin Negative Urine Urobilinogen 0.2 Ur Leukocyte Esterase Negative Urine WBC (Auto) 5 Urine RBC (Auto) 11 Urine Casts (Auto) 2 U Epithel Cells (Auto) 11 Urine Bacteria (Auto) 151 Opiates Screen Negative Methadone Screen Negative Barbiturate Screen Negative Carbamazepine Phencyclidine Screen Negative Ur Amphetamines Screen Negative MDMA (Ecstasy) Screen Negative Benzodiazepines Screen Negative Cocaine Screen Negative U Marijuana (THC) Screen Negative Alcohol, Quantitative 11/03/19 13:25 WBC RBC Hgb Hct MCV MCH MCHC RDW Plt Count MPV Absolute Neuts (auto) Neutrophils % Lymphocytes % Monocytes % Eosinophils % Basophils % Nucleated RBC % PT with INR INR PTT (Actin FS) VBG pH 7.278 L POC VBG pCO2 35.1 L POC VBG pO2 34.7 VBG HCO3 16.0 L VBG O2 Sat (Hang) 59.8 L VBG Base Excess -9.8 L Sodium Potassium Chloride Carbon Dioxide Anion Gap BUN Creatinine Est GFR (CKD-EPI)AfAm Est GFR (CKD-EPI)NonAf POC Glucometer Random Glucose Lactic Acid Calcium Phosphorus Magnesium Total Bilirubin AST ALT Alkaline Phosphatase Creatine Kinase Creatine Kinase Index CK-MB (CK-2) Troponin I Total Protein Albumin TSH Serum , Qual Urine Color Urine Appearance Urine pH Ur Specific [place] Urine Protein Urine Glucose (UA) Urine Ketones Urine Blood Urine Nitrite Urine Bilirubin Urine Urobilinogen Ur Leukocyte Esterase Urine WBC (Auto) Urine RBC (Auto) Urine Casts (Auto) U Epithel Cells (Auto) Urine Bacteria (Auto) Opiates Screen Methadone Screen Barbiturate Screen Carbamazepine Phencyclidine Screen Ur Amphetamines Screen MDMA (Ecstasy) Screen Benzodiazepines Screen Cocaine Screen U Marijuana (THC) Screen Alcohol, Quantitative Active Medications Generic Name Dose Route Start Last Admin Trade Name Freq PRN Reason Stop Dose Admin Heparin Sodium (Porcine) 5,000 unit 11/03/19 14:45 Heparin - SQ TID LUCILA Levetiracetam 1,000 mg 11/03/19 22:00 Keppra - PO BID LUCILA Potassium Phos/Sodium Phos 1 packet 11/03/19 14:45 Phos-Nak Packet - PO 11/04/19 10:01 DAILY [facility] ASSESSMENT/PLAN: Recurrent seizures R/O Status Epilepticus History of untreated Lupus : low clinical suspicion of lupus cerebritis History of right renal CA S/P partial nephrectomy D/W Neuro: load with Keppra and Phosphenytoin BZ PRN Supplemental O2 as needed At this point there is no indication for intubation Solumedrol given for itching developed during phosphenytoin infusion Aspiration precautions (last meal was apparently lunch yesterday) The patient has been accepted and will be transferred to [facility] for closer Neurologic monitoring Will follow if patient remains admitted Thank you. Dr Solis Critical care time spent in reviewing chart, evaluating patient and formulating plan - 36 minutes.
[2019-11-03] MEDS ORDERED: levETIRAcetam 500 MG TABLET (FP) PO SCH (22:00)
== END 2019-11-03 16:50 | disposition short-term general hospital (02) ==
LOC: JER 10:29 → JERBED 12:37 → UNDOADMIN 12:37
DX: G40.89 Other seizures (principal); E87.6 Hypokalemia; M32.9 Systemic lupus erythematosus, unspecified
CPT/HCPCS: 36415; 70450-TC; 71045-TC-FY; 72125-TC; 80053; 80307; 81003; 82550; 82553; 82803; 82962; 83605; 83735; 84100; 84443; 84484; 84703; 85025; 85610; 85730; 87086; 93005; 93010; 99285-25; J1644

== ENCOUNTER 2020-08-18 10:07 | Inpatient (IN) | payer OTHER ==
[2020-08-18] MEDS ORDERED: ONDANSETRON 4 MG/2 ML VIAL IVPUSH ONE (10:24)
[2020-08-18] MEDS ORDERED: LACTATED RINGERS SOLUTION 1000 ML INFUS.BAG IV ONE (10:24)
[2020-08-18] MEDS ORDERED: ONDANSETRON 4 MG/2 ML VIAL ONE (10:32)
[2020-08-18 11:13] LABS: BASO % 0.7 % (0-2.0); HEMATOCRIT 41.2 % (32.4-45.2); HEMOGLOBIN 14.1 GM/dL (10.7-15.3); MCH 31.6 pg (25.7-33.7); MCHC 34.1 g/dl (32.0-36.0); MEAN CELL VOLUME 92.5 fl (80-96); MEAN PLT VOLUME 8.5 fl (7.5-11.1); MONO % 3.1 % (3.8-10.2); NEUT % 82.2 % (42.8-82.8); PLATELET COUNT 288 K/MM3 (134-434); RBC 4.46 M/mm3 (3.60-5.2); RDW 12.8 % (11.6-15.6); WHITE BLOOD COUNT 5.7 K/mm3 (4.0-10.0)
[2020-08-18 11:38] LABS: ALBUMIN 4.5 g/dl (3.4-5.0); BLOOD UREA NITROGEN 8.8 mg/dL (7-18); CALCIUM 9.4 mg/dL (8.5-10.1)
[2020-08-18 11:41] LABS: CREATININE 1.1 mg/dL (0.55-1.3); PHOSPHOROUS 1.5 mg/dL (2.5-4.9)
[2020-08-18 11:43] LABS: BILIRUBIN,TOTAL 0.6 mg/dL (0.2-1); TOT PROT 8.3 g/dl (6.4-8.2)
[2020-08-18 12:24] LABS: URINE APPEARANCE CLEAR; URINE BILIRUBIN NEGATIVE (NEGATIVE); URINE COLOR YELLOW; URINE GLUCOSE (UA) NEGATIVE (NEGATIVE); URINE KETONE TRACE (NEGATIVE); URINE LEUK ESTERASE NEGATIVE (NEGATIVE); URINE NITRITE NEGATIVE (NEGATIVE); URINE PROTEIN TRACE (NEGATIVE); URINE UROBILINOGEN 0.2 mg/dL (0.2-1.0)
[2020-08-18] MEDS ORDERED: LORazepam 2 MG/ML SDV VIAL IVPUSH ONE (13:39)
[2020-08-18] MEDS ORDERED: LORazepam 2 MG/ML SDV VIAL ONE ×2 (13:41→19:21)
[2020-08-18] MEDS ORDERED: SODIUM CHLORIDE 0.9% 500 ML INFUS.BAG IV ONE (17:33)
[2020-08-18] MEDS ORDERED: levETIRAcetam 500 MG/5 ML INJECTION VIAL IVPB ONE ×3 (19:30→23:44)
[2020-08-18] MEDS ORDERED: ACETAMINOPHEN 1000 MG/100 ML VIAL (NON FORMULARY) IVPB ONE (19:46)
[2020-08-18] MEDS ORDERED: ACETAMINOPHEN INJECTION 100 ML IVPB ONE (19:48)
[2020-08-18] MEDS ORDERED: LORazepam 2 MG/ML SDV VIAL IVPB PRN (23:49)
[2020-08-19] MEDS ORDERED: LORazepam 2 MG/ML SDV VIAL IVPUSH STA (03:07)
[2020-08-19 03:13] LABS: BASO % 0.7 % (0-2.0); EOS % 0.9 % (0-4.5); HEMATOCRIT 37.5 % (32.4-45.2); HEMOGLOBIN 12.8 GM/dL (10.7-15.3); LYMPH % 38.1 % (8-40); MCH 31.9 pg (25.7-33.7); MCHC 34.2 g/dl (32.0-36.0); MEAN CELL VOLUME 93.2 fl (80-96); MEAN PLT VOLUME 8.9 fl (7.5-11.1); NEUT % 52.3 % (42.8-82.8); PLATELET COUNT 237 K/MM3 (134-434); RBC 4.02 M/mm3 (3.60-5.2)
[2020-08-19 03:43] LABS: LACTIC ACID 2.2 mmol/L (0.4-2.0)
[2020-08-19 04:05] LABS: CALCIUM 7.9 mg/dL (8.5-10.1)
[2020-08-19] MEDS ORDERED: LACTATED RINGERS SOLUTION 1,000 ML/1,000 ML INFUS.BAG IV SCH (04:45)
[2020-08-19] MEDS ORDERED: POTASSIUM CHLORIDE TABS 20 MEQ TABLET.ER (FP) PO ONE ×2 (04:49→16:16)
[2020-08-19 05:06] VITALS: BMI 25.0
[2020-08-19] MEDS ORDERED: POTASSIUM PHOSPHATE 30 MM in DEXTROSE 5%-WATER - 500 ML IVPB ONE (05:15)
[2020-08-19] MEDS: LORazepam 2 MG/ML SDV VIAL IVPUSH PRN ×7 (08:10→21:13)
[2020-08-19 08:40] LABS: BASO % 0.9 % (0-2.0); EOS % 0.5 % (0-4.5); HEMATOCRIT 34.4 % (32.4-45.2); HEMOGLOBIN 11.9 GM/dL (10.7-15.3); MCH 31.9 pg (25.7-33.7); MCHC 34.5 g/dl (32.0-36.0); MEAN CELL VOLUME 92.3 fl (80-96); MEAN PLT VOLUME 8.6 fl (7.5-11.1); MONO % 7.4 % (3.8-10.2); NEUT % 62.2 % (42.8-82.8); PLATELET COUNT 227 K/MM3 (134-434); RBC 3.72 M/mm3 (3.60-5.2); RDW 12.7 % (11.6-15.6); WHITE BLOOD COUNT 5.5 K/mm3 (4.0-10.0)
[2020-08-19 08:45] LABS: INR 1.2 (0.83-1.09); PROTHROMBIN TIME (PATIENT) 14.7 SEC (9.7-13.0)
[2020-08-19 08:48] LABS: ACTIVATED PTT 34.1 SECONDS (25.2-36.5)
[2020-08-19 09:20] LABS: BLOOD UREA NITROGEN 6.4 mg/dL (7-18); MAGNESIUM 2.1 mg/dL (1.8-2.4)
[2020-08-19 09:23] LABS: CREATININE 0.8 mg/dL (0.55-1.3); PHOSPHOROUS 3.3 mg/dL (2.5-4.9)
[2020-08-19 09:26] LABS: BILIRUBIN,TOTAL 0.7 mg/dL (0.2-1)
[2020-08-19 09:34] LABS: TOT PROT 5.6 g/dl (6.4-8.2)
[2020-08-19] MEDS ORDERED: MIDAZOLAM HCL 2 MG/2 ML SINGLE DOSE VIAL IVPUSH ONE ×2 (09:36→09:54)
[2020-08-19] MEDS: levETIRAcetam 500 MG/5 ML INJECTION VIAL IVPB SCH ×2 (09:39→23:15)
[2020-08-19 09:52] LABS: CALCIUM 7.2 mg/dL (8.5-10.1)
[2020-08-19] MEDS ORDERED: LORazepam 2 MG/ML SDV VIAL IVPUSH ONE (09:53)
[2020-08-19] MEDS ORDERED: ETOMIDATE 20 MG/10 ML AMPUL IVPUSH ONE ×2 (09:56)
[2020-08-19] MEDS ORDERED: PROPOFOL 1,000,000 MCG/100 ML VIAL IVPB SCH (10:00)
[2020-08-19] MEDS ORDERED: ROCURONIUM BROMIDE 50 MG/5 ML VIAL IVPUSH ONE (10:05)
[2020-08-19] MEDS ORDERED: MIDAZOLAM IN 0.9 % SOD.CHLORID 1 MG/1 ML PLAST..BAG ONE (10:06)
[2020-08-19] MEDS ORDERED: RAPID SEQUENCE INTUBATION KIT NR ONE (10:07)
[2020-08-19] MEDS ORDERED: ONDANSETRON 4 MG/2 ML VIAL IVPUSH ONE (10:07)
[2020-08-19] MEDS ORDERED: FOSPHENYTOIN SODIUM 1,000 MG in SODIUM CHLORIDE 100 ML IVPB ONE (10:15)
[2020-08-19] MEDS: SODIUM CHLORIDE 0.45% 1,000 ML IV SCH (11:35)
[2020-08-19] MEDS ORDERED: Lacosamide 200 MG/20 ML VIAL IVPB SCH ×2 (15:40→16:16)
[2020-08-19] MEDS: ONDANSETRON 4 MG/2 ML VIAL IVPUSH PRN (15:42)
[2020-08-19] MEDS: Lacosamide 200 MG/20 ML VIAL IVPB SCH ×2 (16:25→23:15)
[2020-08-19] MEDS ORDERED: levETIRAcetam 500 MG/5 ML INJECTION VIAL IVPB ONE (21:18)
[2020-08-20] MEDS: LORazepam 2 MG/ML SDV VIAL IVPUSH PRN ×2 (05:00→06:34)
[2020-08-20] MEDS ORDERED: levETIRAcetam 500 MG/5 ML INJECTION VIAL IVPB SCH (05:21)
[2020-08-20] MEDS ORDERED: MIDAZOLAM 100 MG in SODIUM CHLORIDE 100 ML IVPB SCH (06:45)
[2020-08-20 07:18] LABS: BASO % 0.9 % (0-2.0); EOS % 1.6 % (0-4.5); HEMATOCRIT 38.6 % (32.4-45.2); HEMOGLOBIN 13.2 GM/dL (10.7-15.3); LYMPH % 26.3 % (8-40); MCHC 34.2 g/dl (32.0-36.0); MEAN CELL VOLUME 93.6 fl (80-96); MONO % 7.5 % (3.8-10.2); NEUT % 63.7 % (42.8-82.8); PLATELET COUNT 231 K/MM3 (134-434); RBC 4.12 M/mm3 (3.60-5.2); RDW 12.6 % (11.6-15.6); WHITE BLOOD COUNT 5.2 K/mm3 (4.0-10.0)
[2020-08-20 07:45] LABS: MAGNESIUM 2.1 mg/dL (1.8-2.4)
[2020-08-20 07:48] LABS: PHOSPHOROUS 2.6 mg/dL (2.5-4.9)
[2020-08-20 07:49] LABS: BILIRUBIN,TOTAL 0.8 mg/dL (0.2-1); TOT PROT 7.1 g/dl (6.4-8.2)
[2020-08-20 07:50] LABS: ALBUMIN 3.8 g/dl (3.4-5.0)
[2020-08-20] MEDS ORDERED: MIDAZOLAM IN 0.9 % SOD.CHLORID 100 MG/100 ML PLAST..BAG IVPB SCH (08:00)
[2020-08-20] MEDS: SODIUM CHLORIDE 0.45% 1,000 ML IV SCH (10:11)
[2020-08-20] MEDS: Lacosamide 200 MG/20 ML VIAL IVPB SCH ×2 (10:11→22:59)
[2020-08-20] MEDS: levETIRAcetam 500 MG/5 ML INJECTION VIAL IVPB SCH ×2 (10:11→22:58)
[2020-08-20] MEDS ORDERED: SODIUM CHLORIDE 1,000 ML IV SCH (12:00)
[2020-08-20] MEDS ORDERED: LACTATED RINGERS SOLUTION 1,000 ML/1,000 ML INFUS.BAG IV SCH (14:00)
[2020-08-20] MEDS: LACTATED RINGERS SOLUTION 1,000 ML/1,000 ML INFUS.BAG IV SCH (14:06)
[2020-08-20] MEDS: HEPARIN NA (PORCINE) 5,000 UNITS/ML 1ML VIAL SQ SCH ×2 (14:12→22:57)
[2020-08-20] MEDS: AMINO ACIDS 4.25%/D5W 1,000 ML IV SCH (16:00)
[2020-08-20 16:04] LABS: CALCIUM 8.6 mg/dL (8.5-10.1)
[2020-08-20 16:05] LABS: ALBUMIN 3.6 g/dl (3.4-5.0); BLOOD UREA NITROGEN 3.9 mg/dL (7-18)
[2020-08-20 16:08] LABS: CREATININE 0.8 mg/dL (0.55-1.3)
[2020-08-20 16:09] LABS: BILIRUBIN,TOTAL 0.6 mg/dL (0.2-1); TOT PROT 6.5 g/dl (6.4-8.2)
[2020-08-20 17:57] LABS: COCAINE, UR NEGATIVE ng/ml (CUTOFF=300); OPIATES, URI NEGATIVE ng/ml (CUTOFF=300); PHENCYCLIDINE,URINE NEGATIVE ng/ml (CUTOFF=25); URINE BARBITURATES NEGATIVE ng/ml (CUTOFF=200)
[2020-08-20 17:58] LABS: METHADONE, UR NEGATIVE ng/ml (CUTOFF=300)
[2020-08-20 18:07] LABS: URINE AMPHETAMINES NEGATIVE ng/ml (CUTOFF=500); URINE BENZODIAZEPINES POSITIVE ng/ml (CUTOFF=200)
[2020-08-20] MEDS ORDERED: ACETAMINOPHEN 1000 MG/100 ML VIAL (NON FORMULARY) IVPB ONE (21:44)
[2020-08-20] MEDS ORDERED: FAT EMULSION/OLIVE/SOY/PHOSPHO 250 ML IV SCH (22:00)
[2020-08-20] MEDS ORDERED: FAT EMULSION/OLIVE/SOY (CLINOLIPID) 250 ML EMULSION IV SCH (22:00)
[2020-08-21] MEDS ORDERED: MIDAZOLAM HCL 2 MG/2 ML SINGLE DOSE VIAL IVPUSH ONE (00:38)
[2020-08-21] MEDS: LORazepam 2 MG/ML SDV VIAL IVPUSH PRN ×2 (01:08→17:25)
[2020-08-21] MEDS ORDERED: MIDAZOLAM IN 0.9 % SOD.CHLORID 100 MG/100 ML PLAST..BAG IVPB SCH (05:26)
[2020-08-21] MEDS: AMINO ACIDS 4.25%/D5W 1,000 ML IV SCH (06:11)
[2020-08-21] MEDS: HEPARIN NA (PORCINE) 5,000 UNITS/ML 1ML VIAL SQ SCH ×3 (06:16→21:26)
[2020-08-21 07:20] LABS: BASO % 0.9 % (0-2.0); EOS % 1.5 % (0-4.5); HEMATOCRIT 35.5 % (32.4-45.2); HEMOGLOBIN 12.2 GM/dL (10.7-15.3); LYMPH % 38.6 % (8-40); MCH 31.9 pg (25.7-33.7); MCHC 34.3 g/dl (32.0-36.0); MEAN CELL VOLUME 92.8 fl (80-96); MEAN PLT VOLUME 8.7 fl (7.5-11.1); MONO % 7.7 % (3.8-10.2); NEUT % 51.3 % (42.8-82.8); PLATELET COUNT 217 K/MM3 (134-434); RBC 3.83 M/mm3 (3.60-5.2); RDW 12.5 % (11.6-15.6); WHITE BLOOD COUNT 4.7 K/mm3 (4.0-10.0)
[2020-08-21 07:34] LABS: CHLORIDE 108 mmol/L (98-107); SODIUM 140 mmol/L (136-145)
[2020-08-21 07:36] LABS: CALCIUM 8.2 mg/dL (8.5-10.1)
[2020-08-21 07:37] LABS: ALBUMIN 3.4 g/dl (3.4-5.0); ANION GAP 9 MMOL/L (8-16); BLOOD UREA NITROGEN 5.1 mg/dL (7-18); CO2 23 mmol/L (21-32); GLUCOSE,RANDOM 78 mg/dL (74-106)
[2020-08-21 07:40] LABS: CREATININE 0.7 mg/dL (0.55-1.3); PHOSPHOROUS 3.6 mg/dL (2.5-4.9); SGOT/AST 11 U/L (15-37); SGPT/ALT 20 U/L (13-61)
[2020-08-21 07:41] LABS: BILIRUBIN,TOTAL 0.6 mg/dL (0.2-1); TOT PROT 6.3 g/dl (6.4-8.2)
[2020-08-21 07:43] LABS: ALK PHOS 38 U/L (45-117)
[2020-08-21] MEDS ORDERED: ONDANSETRON 4 MG/2 ML VIAL IVPUSH ONE (09:32)
[2020-08-21] MEDS: Lacosamide 200 MG/20 ML VIAL IVPB SCH ×2 (09:44→21:25)
[2020-08-21] MEDS: levETIRAcetam 500 MG/5 ML INJECTION VIAL IVPB SCH ×2 (09:45→21:25)
[2020-08-21] MEDS ORDERED: LORazepam 2 MG/ML SDV VIAL IVPUSH ONE ×2 (13:52→20:49)
[2020-08-21] MEDS: LACTATED RINGERS SOLUTION 1,000 ML/1,000 ML INFUS.BAG IV SCH (14:35)
[2020-08-22] MEDS ORDERED: ACETAMINOPHEN 1000 MG/100 ML VIAL (NON FORMULARY) IVPB PRN (02:00)
[2020-08-22] MEDS ORDERED: LORazepam 2 MG/ML SDV VIAL IVPUSH ONE ×6 (02:01→19:49)
[2020-08-22] MEDS ORDERED: MIDAZOLAM IN 0.9 % SOD.CHLORID 1 MG/1 ML PLAST..BAG ONE (02:09)
[2020-08-22] MEDS ORDERED: MIDAZOLAM IN 0.9 % SOD.CHLORID 100 MG/100 ML PLAST..BAG IVPB SCH (02:15)
[2020-08-22] MEDS ORDERED: ACETAMINOPHEN INJECTION 100 ML IVPB ONE (02:40)
[2020-08-22] MEDS ORDERED: SODIUM CHLORIDE 1,000 ML IV SCH (07:00)
[2020-08-22] MEDS: HEPARIN NA (PORCINE) 5,000 UNITS/ML 1ML VIAL SQ SCH ×3 (07:06→22:51)
[2020-08-22 07:13] LABS: EOS % 1.7 % (0-4.5); HEMATOCRIT 33.3 % (32.4-45.2); HEMOGLOBIN 11.3 GM/dL (10.7-15.3); LYMPH % 35.5 % (8-40); MCH 31.7 pg (25.7-33.7); MCHC 33.8 g/dl (32.0-36.0); MEAN CELL VOLUME 93.6 fl (80-96); NEUT % 53.8 % (42.8-82.8); PLATELET COUNT 208 K/MM3 (134-434); RBC 3.56 M/mm3 (3.60-5.2); RDW 12.3 % (11.6-15.6); WHITE BLOOD COUNT 4.6 K/mm3 (4.0-10.0)
[2020-08-22 07:17] LABS: ALBUMIN 3.1 g/dl (3.4-5.0); CALCIUM 8.2 mg/dL (8.5-10.1)
[2020-08-22 07:18] LABS: BLOOD UREA NITROGEN 6.7 mg/dL (7-18); MAGNESIUM 1.9 mg/dL (1.8-2.4)
[2020-08-22 07:21] LABS: PHOSPHOROUS 3.2 mg/dL (2.5-4.9)
[2020-08-22 07:22] LABS: BILIRUBIN,TOTAL 0.4 mg/dL (0.2-1); TOT PROT 5.8 g/dl (6.4-8.2)
[2020-08-22 07:24] LABS: CREATININE 0.7 mg/dL (0.55-1.3)
[2020-08-22] MEDS: Lacosamide 200 MG/20 ML VIAL IVPB SCH ×2 (09:02→22:51)
[2020-08-22] MEDS: levETIRAcetam 500 MG/5 ML INJECTION VIAL IVPB SCH ×2 (09:02→22:51)
[2020-08-22] MEDS ORDERED: LORazepam 2 MG/ML SDV VIAL ONE ×2 (11:02→18:56)
[2020-08-22] MEDS: ONDANSETRON 4 MG/2 ML VIAL IVPUSH PRN (15:37)
[2020-08-22] MEDS: LORazepam 2 MG/ML SDV VIAL IVPUSH SCH ×2 (19:45→22:15)
[2020-08-23] MEDS: LORazepam 2 MG/ML SDV VIAL IVPUSH SCH ×3 (02:37→14:49)
[2020-08-23] MEDS ORDERED: LORazepam 2 MG/ML SDV VIAL IVPUSH ONE (05:00)
[2020-08-23] MEDS: HEPARIN NA (PORCINE) 5,000 UNITS/ML 1ML VIAL SQ SCH ×2 (06:27→14:49)
[2020-08-23 06:36] LABS: BASO % 1.1 % (0-2.0); EOS % 0.8 % (0-4.5); HEMATOCRIT 33.3 % (32.4-45.2); HEMOGLOBIN 11.2 GM/dL (10.7-15.3); LYMPH % 30.6 % (8-40); MCH 31.7 pg (25.7-33.7); MCHC 33.6 g/dl (32.0-36.0); MEAN CELL VOLUME 94.3 fl (80-96); MEAN PLT VOLUME 9.1 fl (7.5-11.1); MONO % 7.8 % (3.8-10.2); NEUT % 59.7 % (42.8-82.8); PLATELET COUNT 191 K/MM3 (134-434); RBC 3.53 M/mm3 (3.60-5.2); RDW 12.7 % (11.6-15.6); WHITE BLOOD COUNT 4.6 K/mm3 (4.0-10.0)
[2020-08-23 06:48] LABS: ALBUMIN 3.3 g/dl (3.4-5.0); BLOOD UREA NITROGEN 5.3 mg/dL (7-18); CALCIUM 8.2 mg/dL (8.5-10.1); MAGNESIUM 1.8 mg/dL (1.8-2.4)
[2020-08-23 06:51] LABS: CREATININE 0.7 mg/dL (0.55-1.3)
[2020-08-23 06:52] LABS: PHOSPHOROUS 2.8 mg/dL (2.5-4.9)
[2020-08-23 06:53] LABS: BILIRUBIN,TOTAL 0.2 mg/dL (0.2-1)
[2020-08-23] MEDS ORDERED: POTASSIUM CHLORIDE TABS 20 MEQ TABLET.ER (FP) PO ONE (09:30)
[2020-08-23] MEDS: levETIRAcetam 500 MG/5 ML INJECTION VIAL IVPB SCH (09:40)
[2020-08-23] MEDS: Lacosamide 200 MG/20 ML VIAL IVPB SCH (10:27)
[2020-08-23 15:58] VITALS: BP 124/82; PULSE 106; TEMP 98.9
== END 2020-08-23 15:40 | disposition short-term general hospital (02) | DRG 101 ==
LOC: JER 10:07 → JERBED 13:26 → J5S 23:14 → JICU 08-19 10:01
PROVIDERS: ADMIT Family Medicine; ATTEND Nurse Practitioner Acute Care
DX: G40.802 Other epilepsy, not intractable, without status epilepticus (principal); E87.2 Acidosis; E87.0 Hyperosmolality and hypernatremia; E87.6 Hypokalemia; E83.39 Other disorders of phosphorus metabolism; M32.9 Systemic lupus erythematosus, unspecified
CPT/HCPCS: 36415; 70450-TC; 80048; 80053; 80177; 80307; 81003; 82550; 82553; 83605; 83735; 84100; 84146; 84443; 84703; 85025; 85610; 85730; 86618; 87086; 93005; 93010; 95816; 99291; C9803; J0131; J1644; U0003; U0005

== ENCOUNTER 2021-02-18 09:25 | Emergency (ER) | payer OTHER ==
[2021-02-18 09:38] VITALS: TEMP 98.1; BMI 24.8
[2021-02-18] MEDS ORDERED: FAMOTIDINE 20 MG/50 ML IVPB 20 MG/50 ML MG IVPB ONE ×2 (09:52→11:19)
[2021-02-18] MEDS ORDERED: SODIUM CHLORIDE 0.9% 500 ML INFUS.BAG IV ONE (09:52)
[2021-02-18] MEDS ORDERED: ONDANSETRON 4 MG/2 ML VIAL IVPUSH ONE (09:52)
[2021-02-18] MEDS ORDERED: ACETAMINOPHEN 1000 MG/100 ML VIAL IVPB ONE (10:14)
[2021-02-18] MEDS ORDERED: ACETAMINOPHEN INJECTION 100 ML IVPB ONE (11:18)
[2021-02-18 11:40] LABS: BASO % 0.7 % (0-2.0); HEMATOCRIT 40.2 % (32.4-45.2); HEMOGLOBIN 13.4 GM/dL (10.7-15.3); LYMPH % 18.8 % (8-40); MCH 30.5 pg (25.7-33.7); MCHC 33.3 g/dl (32.0-36.0); MEAN CELL VOLUME 91.7 fl (80-96); MEAN PLT VOLUME 8.5 fl (7.5-11.1); MONO % 5.5 % (3.8-10.2); PLATELET COUNT 241 10^3/uL (134-434); RBC 4.39 M/mm3 (3.60-5.2); RDW 13.4 % (11.6-15.6); WHITE BLOOD COUNT 5.5 K/mm3 (4.0-10.0)
[2021-02-18] MEDS ORDERED: ONDANSETRON 4 MG/2 ML VIAL ONE (11:41)
[2021-02-18 11:45] LABS: VENOUS BASE EXCESS 0.5 mmol/L (-2-2); VENOUS O2 SATURATION 30.3 % (70-80); VENOUS PCO2 30.5 mmHg (38-52); VENOUS PH 7.491 (7.310-7.410)
[2021-02-18 11:54] LABS: CALCIUM 9.5 mg/dL (8.5-10.1)
[2021-02-18 11:55] LABS: ALBUMIN 4.4 g/dl (3.4-5.0); BLOOD UREA NITROGEN 7.3 mg/dL (7-18); MAGNESIUM 2.3 mg/dL (1.8-2.4)
[2021-02-18 12:00] LABS: BILIRUBIN,TOTAL 0.9 mg/dL (0.2-1)
[2021-02-18] MEDS ORDERED: morphine CARPU-JECT 4 MG/1 ML DISP.SYRIN IVPUSH ONE (12:14)
[2021-02-18] MEDS ORDERED: morphine SULFATE 4 MG/ML VIAL ONE (12:18)
[2021-02-18 12:47] VITALS: BP 120/78; PULSE 72
[2021-02-18 16:57] LABS: PH,URINE 6.5 (5.0-8.0); URINE APPEARANCE CLEAR; URINE BILIRUBIN NEGATIVE (NEGATIVE); URINE COLOR YELLOW; URINE GLUCOSE (UA) NEGATIVE (NEGATIVE); URINE KETONE 2+ (NEGATIVE); URINE LEUK ESTERASE NEGATIVE (NEGATIVE); URINE NITRITE NEGATIVE (NEGATIVE); URINE PROTEIN NEGATIVE (NEGATIVE); URINE UROBILINOGEN 0.2 mg/dL (0.2-1.0)
== END 2021-02-18 17:10 | disposition home or self-care (01) ==
LOC: JER 09:25
PROC: 3E0333Z Introduction of Anti-inflammatory into Peripheral Vein, Percutaneous Approach (ICD-10-PCS; principal; 2021-02-18)
PROC: 3E033GC Introduction of Other Therapeutic Substance into Peripheral Vein, Percutaneous Approach (ICD-10-PCS; 2021-02-18)
PROC: 3E033NZ Introduction of Analgesics, Hypnotics, Sedatives into Peripheral Vein, Percutaneous Approach (ICD-10-PCS; 2021-02-18)
PROC: 3E033GC Introduction of Other Therapeutic Substance into Peripheral Vein, Percutaneous Approach (ICD-10-PCS; 2021-02-18)
DX: R11.2 Nausea with vomiting, unspecified (principal); R10.9 Unspecified abdominal pain
CPT/HCPCS: 36415; 71045-TC-FY; 74177-TC; 80053; 81003; 82803; 83605; 83690; 83735; 84703; 85025; 87040; 87086; 93005; 93010; 99285-25; J0131; Q9967

== ENCOUNTER 2021-11-12 09:57 | Emergency (ER) | payer OTHER ==
[2021-11-12 10:00] VITALS: BP 124/82; PULSE 86; RESP 18; TEMP 98.2; BMI 21.9
[2021-11-12] MEDS ORDERED: KETOROLAC TROMETHAMINE 30 MG/1 ML VIAL IM ONE (10:47)
[2021-11-12] MEDS ORDERED: KETOROLAC TROMETHAMINE 30 MG/1 ML VIAL ONE (11:01)
== END 2021-11-12 11:35 | disposition home or self-care (01) ==
LOC: JERFT 09:57
PROC: 3E0233Z Introduction of Anti-inflammatory into Muscle, Percutaneous Approach (ICD-10-PCS; principal; 2021-11-12)
DX: S92.515A Nondisplaced fracture of proximal phalanx of left lesser toe(s), initial encounter for closed fracture (principal); W22.8XXA Striking against or struck by other objects, initial encounter
CPT/HCPCS: 73660-TC-LT-FY; 99284-25